=== PATIENT | male | born 1980 | race Caucasian/White ===

== ENCOUNTER 2016-12-19 12:39 | Emergency (ER) | payer OTHER ==
[2016-12-19 12:54] VITALS: BP 147/91; PULSE 71; RESP 20; TEMP 97.7; O2SAT 100
--- NOTE | 2016-12-19 15:06 | EDPHY ---
ED Progress Note Narrative: This patient left the emergency department without being seen. I did not see this patient in the emergency department.
== END 2016-12-19 14:19 | disposition left against medical advice (07) ==
DX: Z53.21 Procedure and treatment not carried out due to patient leaving prior to being seen by health care provider (principal)

== ENCOUNTER 2016-12-23 07:06 | Emergency (ER) | payer OTHER ==
--- NOTE | 2016-12-23 07:28 | CPEKG ---
Heart Rate: 113 RR Interval: 531 P-R Interval: 125 QRSD Interval: 82 QT Interval: 356 QTC Interval: 489 P [place]: 0 QRS [place]: -50 T Wave [place]: 68 EKG Severity - BORDERLINE ECG - EKG Impression: SINUS TACHYCARDIA EKG Impression: LEFT AXIS DEVIATION EKG Impression: BORDERLINE PROLONGED QT INTERVAL Electronically Signed By: Chuckie Jerry 23-Dec-2016 07:54:23
--- NOTE | 2016-12-23 07:28 | CPEKG ---
Heart Rate: 113 RR Interval: 531 P-R Interval: 125 QRSD Interval: 82 QT Interval: 356 QTC Interval: 489 P [place]: 0 QRS [place]: -50 T Wave [place]: 68 EKG Severity - BORDERLINE ECG - EKG Impression: SINUS TACHYCARDIA EKG Impression: LEFT AXIS DEVIATION EKG Impression: BORDERLINE PROLONGED QT INTERVAL Electronically Signed By: Chuckie Jerry 23-Dec-2016 07:54:23
--- NOTE | 2016-12-23 07:53 | EDPHY ---
H & P Stated Complaint: chest pain Time Seen by Provider: 12/23/16 07:09 HPI/ROS: CHIEF COMPLAINT: Chest pain HISTORY OF PRESENT ILLNESS: The patient is referred to the emergency department from assisted with complaints of anterior chest pain. The patient reports his symptoms have been ongoing for several days. He attributes this to stopping Ativan and gabapentin. The patient is currently receiving Librium at the assisted for symptoms of withdrawal. The patient apparently has been having chest pain for the past day assisted. His EKGs have demonstrated sinus tachycardia. He is referred to the ED for further evaluation. In the emergency department, the patient is somewhat vague about a prior history of acute coronary syndrome. There are no records in our computer system of the patient having a myocardial infarction. The patient denies asymmetric calf pain or swelling. He denies pleuritic chest pain. The patient has no complaints of fever, cough or congestion. REVIEW OF SYSTEMS: A comprehensive 10 point review of systems is otherwise negative aside from elements mentioned in the history of present illness. Source: Patient - Personal History Current Tetanus/Diphtheria Vaccine: Yes Current Tetanus Diphtheria and Acellular Pertussis (TDAP): Yes - Medical/Surgical History Hx Asthma: No Hx Chronic Respiratory Disease: No Hx Diabetes: No Hx Cardiac Disease: Yes Hx Renal Disease: No Hx Cirrhosis: No Hx Alcoholism: No Hx HIV/AIDS: No Hx Splenectomy or Spleen Trauma: No Other PMH: PSYCH HX/PARANOIA/ANXIETY, "heart problems", HTN - Social History Smoking Status: Former smoker - Physical Exam Exam: General Appearance: Alert, anxious, no acute distress Eyes: Pupils equal and round no pallor or injection ENT, Mouth: Mucous membranes moist Respiratory: There are no retractions, lungs are clear to auscultation Cardiovascular: Regular rate and rhythm Gastrointestinal: Abdomen is soft and nontender, no masses, bowel sounds normal Neurological: A&O, normal motor function, normal sensory exam, normal cranial nerves Skin: Warm and dry, no rashes Musculoskeletal: Neck is supple nontender Extremities: symmetrical, full range of motion Psychiatric: Patient is oriented X 3, there is no agitation, anxious Constitutional: Initial Vital Signs Temperature (C) 37.2 C 12/23/16 07:10 Heart Rate 115 H 12/23/16 07:10 Respiratory Rate 20 12/23/16 07:10 Blood Pressure 145/100 H 12/23/16 07:10 O2 Sat (%) 98 12/23/16 07:10 O2 Delivery Mode Room Air Allergies/Adverse Reactions: Penicillins Allergy (Unverified 12/23/16 07:28) Home Medications: Medication Instructions Recorded Propranolol HCl 12/19/16 Ativan 12/23/16 Medical Decision Making - Diagnostics EKG Interpretation: EKG: Complete interpretation has been separately recorded in the [email or web address] archive. Summary impression: Sinus tachycardia, rate 113 ED Course/Re-evaluation: The patient presents to the ED with chest pain in the setting of benzodiazepine discontinuation. The patient was noted to have mild hypokalemia which was corrected in the emergency department. The patient did appear slightly dehydrated. He received a L of normal saline. His sodium was initially level however corrected after IV fluid rehydration. The patient was reassessed several times emergency department, his tachycardia has resolved. At 10:20 a.m. , his blood pressure is 140/90 with a heart rate in the 80s. Regarding the patient's chest pain, his EKG is normal, his troponin is within normal limits. I feel his symptoms today are consistent with mild anxiety and mild withdrawal symptoms. The patient is currently receiving Librium at the assisted. The patient will be discharged from the emergency department at this point time. He has no evidence of acute coronary syndrome, myocardial infarction or additional historical features to suggest pulmonary embolism or other serious cause of chest pain. Differential Diagnosis: Differential diagnosis considered includes acute coronary syndrome, anxiety, metabolic abnormality, pulmonary embolism, dehydration - Data Points Laboratory Results: Laboratory Results 12/23/16 07:42 12/23/16 07:42 12/23/16 12/23/16 12/23/16 09:59 07:42 07:42 WBC 10.03 10^3/uL H 10^3/uL (3.80-9.50) RBC 6.16 10^6/uL 10^6/uL (4.40-6.38) Hgb 17.4 g/dL g/dL (13.7-17.5) POC Hgb 17.3 gm/dL gm/dL (13.7-17.5) Hct 45.4 % % (40.0-51.0) POC Hct 51 % % (40-51) MCV 73.7 fL L fL (81.5-99.8) MCH 28.2 pg pg (27.9-34.1) MCHC 38.3 g/dL H g/dL (32.4-36.7) RDW 11.8 % % (11.5-15.2) Plt Count 251 10^3/uL 10^3/uL (150-400) MPV 10.4 fL fL (8.7-11.7) Neut % (Auto) 71.6 % % (39.3-74.2) Lymph % (Auto) 19.1 % % (15.0-45.0) [place] % (Auto) 7.9 % % (4.5-13.0) Eos % (Auto) 0.5 % L % (0.6-7.6) Baso % (Auto) 0.4 % % (0.3-1.7) Nucleat RBC Rel Count 0.0 % % (0.0-0.2) Absolute Neuts (auto) 7.18 10^3/uL H 10^3/uL (1.70-6.50) Absolute Lymphs (auto) 1.92 10^3/uL 10^3/uL (1.00-3.00) Absolute Monos (auto) 0.79 10^3/uL 10^3/uL (0.30-0.80) Absolute Eos (auto) 0.05 10^3/uL 10^3/uL (0.03-0.40) Absolute Basos (auto) 0.04 10^3/uL 10^3/uL (0.02-0.10) Absolute Nucleated RBC 0.00 10^3/uL 10^3/uL (0-0.01) Immature Gran % 0.5 % % (0.0-1.1) Immature Gran # 0.05 10^3/uL 10^3/uL (0.00-0.10) RBC/WBC/PLT Morphology NORMAL (NORMAL) Platelet Estimate ADEQUATE (ADEQ) POC Sodium 134 mEq/L mEq/L (134-144) Sodium 129 mEq/L L mEq/L (134-144) POC Potassium 3.6 mEq/L mEq/L (3.3-5.0) Potassium 3.0 mEq/L L mEq/L (3.5-5.2) POC Chloride 99 mEq/L mEq/L (97-110) Chloride 93 mEq/L L mEq/L (97-110) Carbon Dioxide 17 mEq/l L mEq/l (22-31) Anion Gap 19 mEq/L H mEq/L (8-16) POC BUN 26 mg/dL H mg/dL (7-23) BUN 28 mg/dL H mg/dL (7-23) Creatinine 1.2 mg/dL mg/dL (0.7-1.3) POC Creatinine 1.2 mg/dL mg/dL (0.7-1.3) Estimated GFR > 60 Glucose 139 mg/dL H mg/dL (70-100) POC Glucose 119 mg/dL H mg/dL (70-100) Calcium 9.3 mg/dL mg/dL (8.5-10.4) Troponin I 0.034 ng/mL ng/mL (0.000-0.034) Medications Given: Discontinued Medications Sodium Chloride (Ns) 1,000 mls @ 0 mls/hr IV EDNOW ONE; Wide Open PRN Reason: Protocol Stop: 12/23/16 08:13 Last Admin: 12/23/16 09:08 Dose: 1,000 mls Potassium Chloride (Potassium Cl 10 Meq (Premix)) 100 mls @ 100 mls/hr IV ONCE ONE Stop: 12/23/16 09:12 Last Admin: 12/23/16 09:08 Dose: 100 mls Potassium Chloride (Klor-Con) 40 meq PO ONCE ONE Stop: 12/23/16 08:13 Last Admin: 12/23/16 09:09 Dose: 40 meq Point of Care Test Results: 12/23/16 09:59 POC Sodium 134 POC Potassium 3.6 POC Chloride 99 POC BUN 26 H POC Creatinine 1.2 POC Glucose 119 H Departure - Departure Disposition: Home, Routine, Self-Care Clinical Impression: Chest pain, Anxiety, Dehydration Condition: Good Instructions: Chest Pain (ED), Dehydration (ED) Additional Instructions: 1. Please be sure to have adequate nutritional intake as your potassium level was slightly low. We have corrected that in the emergency department today. 2. Please return to the ED for markedly worsening symptoms or other concerns. We see no evidence of a heart attack or serious condition at this point time. Referrals: NONE *PRIMARY CARE P,. [Primary Care Provider] - As per Instructions
[2016-12-23 08:04] LABS: PLATELET COUNT 251 10^3/uL (150-400)
[2016-12-23] MEDS ORDERED: NS 1,000 ML IV ONE (08:12)
[2016-12-23] MEDS ORDERED: POTASSIUM CL 20 MEQ TAB PO ONE (08:12)
[2016-12-23] MEDS ORDERED: POTASSIUM Cl (KCl) 100 ML IV ONE (08:13)
[2016-12-23 10:17] VITALS: BP 136/94; PULSE 88; RESP 17; TEMP 97.3; O2SAT 94
== END 2016-12-23 10:39 | disposition home or self-care (01) ==
LOC: EDUNIT#
DX: R07.9 Chest pain, unspecified (principal); F41.9 Anxiety disorder, unspecified; E86.0 Dehydration; I10 Essential (primary) hypertension; E86.9 Volume depletion, unspecified; Z87.891 Personal history of nicotine dependence
CPT/HCPCS: 82947-QW; 96365

== ENCOUNTER 2017-07-19 02:12 | Inpatient (IN) | payer OTHER ==
--- NOTE | 2017-07-19 02:23 | EDPHY ---
H & P - Medical/Surgical History Hx Asthma: No Hx Chronic Respiratory Disease: No Hx Diabetes: No Hx Cardiac Disease: Yes Hx Renal Disease: No Hx Cirrhosis: No Hx Alcoholism: No Hx HIV/AIDS: No Hx Splenectomy or Spleen Trauma: No Other PMH: PSYCH HX/PARANOIA/ANXIETY, "heart problems", HTN - Social History Smoking Status: Former smoker Time Seen by Provider: 07/19/17 02:15 HPI/ROS: Chief Complaint: Psychosis, mental health evaluation HPI: 36-year-old male bring brought from the skilled nursing for mental health evaluation. Patient seen by mental health evaluated there and was found to be gravely disabled with a lack of insight, grandiose delusions, with psychotic features. Patient has a history of psychosis and mental illness in the past. He had been taking Seroquel but does not wish to continue taking this. 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 Patient denies suicidal or homicidal ideation. Does not feel he has any a capacities at this time. Patient was placed on a mental health hold in skilled nursing prior to transfer here. ROS: 10 point Review of Systems is negative except as noted in the HPI. PMH: Unspecified psychosis Social History: No smoking, no alcohol Family History: non-contributory Physical Exam: Gen: Awake, Alert, No Distress HEENT: Nose: no rhinorrhea Eyes: PERRLA, EOMI Mouth: Moist mucosa Neck: Supple, no JVD Chest: nontender, lungs clear to auscultation Heart: S1, S2 normal, no murmur Abd: Soft, non-tender, no guarding Back: no CVA tenderness, no midline tenderness Ext: no edema, non-tender Skin: no rash Neuro: CN II-XII intact, Sensation grossly intact, Strength 5/5 in bilateral upper and lower extremities (Faustino Juarez) Constitutional: Initial Vital Signs Temperature (C) 36.4 C 07/19/17 02:33 Heart Rate 124 H 07/19/17 02:33 Respiratory Rate 18 07/19/17 02:33 Blood Pressure 151/103 H 07/19/17 02:33 O2 Sat (%) 100 07/19/17 02:33 O2 Delivery Mode Room Air Allergies/Adverse Reactions: Penicillins Allergy (Verified 07/19/17 02:34) Home Medications: Medication Instructions Recorded Propranolol HCl 12/19/16 Ativan 12/23/16 Medical Decision Making ED Course/Re-evaluation: 36-year-old male on a mental health hold for psychosis from the skilled nursing. He has been released from the skilled nursing at this time. He is awaiting mental health evaluation. [id number] patient signed out to Dr. Valdez Pending mental health evaluation. I have had no issues during my care this patient overnight. (Faustino Juarez) Patient's care was signed out to me at 7:00 a.m. . Patient has remained stable Patient has had a mental health evaluation this morning and they feel that the patient should be admitted for further treatment. (Andrew Valdez) Differential Diagnosis: Appears the patient has psychosis (Andrew Valdez) - Data Points Laboratory Results: Laboratory Results 07/19/17 02:55 07/19/17 02:55 07/19/17 07/19/17 07/19/17 04:00 02:55 02:55 WBC 6.83 10^3/uL 10^3/uL (3.80-9.50) RBC 5.30 10^6/uL 10^6/uL (4.40-6.38) Hgb 15.4 g/dL g/dL (13.7-17.5) Hct 44.3 % % (40.0-51.0) MCV 83.6 fL fL (81.5-99.8) MCH 29.1 pg pg (27.9-34.1) MCHC 34.8 g/dL g/dL (32.4-36.7) RDW 11.8 % % (11.5-15.2) Plt Count 246 10^3/uL 10^3/uL (150-400) MPV 9.7 fL fL (8.7-11.7) Neut % (Auto) 59.5 % % (39.3-74.2) Lymph % (Auto) 31.6 % % (15.0-45.0) [place] % (Auto) 5.9 % % (4.5-13.0) Eos % (Auto) 2.2 % % (0.6-7.6) Baso % (Auto) 0.7 % % (0.3-1.7) Nucleat RBC Rel Count 0.0 % % (0.0-0.2) Absolute Neuts (auto) 4.06 10^3/uL 10^3/uL (1.70-6.50) Absolute Lymphs (auto) 2.16 10^3/uL 10^3/uL (1.00-3.00) Absolute Monos (auto) 0.40 10^3/uL 10^3/uL (0.30-0.80) Absolute Eos (auto) 0.15 10^3/uL 10^3/uL (0.03-0.40) Absolute Basos (auto) 0.05 10^3/uL 10^3/uL (0.02-0.10) Absolute Nucleated RBC 0.00 10^3/uL 10^3/uL (0-0.01) Immature Gran % 0.1 % % (0.0-1.1) Immature Gran # 0.01 10^3/uL 10^3/uL (0.00-0.10) Sodium 145 mEq/L mEq/L (135-145) Potassium 3.7 mEq/L mEq/L (3.3-5.0) Chloride 107 mEq/L mEq/L (97-110) Carbon Dioxide 23 mEq/l mEq/l (22-31) Anion Gap 15 mEq/L mEq/L (8-16) BUN 17 mg/dL mg/dL (7-23) Creatinine 1.1 mg/dL mg/dL (0.7-1.3) Estimated GFR > 60 Glucose 138 mg/dL H mg/dL (70-100) Calcium 9.7 mg/dL mg/dL (8.5-10.4) Urine Opiates Screen NEGATIVE (NEGATIVE) Urine Barbiturates NEGATIVE (NEGATIVE) Ur Phencyclidine Scrn NEGATIVE (NEGATIVE) Ur Amphetamine Screen NEGATIVE (NEGATIVE) U Benzodiazepines Scrn NEGATIVE (NEGATIVE) Urine Cocaine Screen NEGATIVE (NEGATIVE) U Marijuana (THC) Screen NEGATIVE (NEGATIVE) Ethyl Alcohol < 10 mg/dL mg/dL (0-10) Departure - Departure Disposition: [facility] IP Clinical Impression: Acute psychosis Condition: Fair Referrals: NONE *PRIMARY CARE P,. [Primary Care Provider] - As per Instructions
[2017-07-19 03:11] LABS: PLATELET COUNT 246 10^3/uL (150-400)
[2017-07-19] MEDS ORDERED: OLANZapine DISINTEGR 10 MG TAB PO PRN (13:38)
[2017-07-19] MEDS ORDERED: QUEtiapine FUMARATE 100 MG TAB PO PRN (14:17)
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
--- NOTE | 2017-07-19 16:35 | CPEKG ---
Heart Rate: 73 RR Interval: 822 P-R Interval: 168 QRSD Interval: 82 QT Interval: 396 QTC Interval: 437 P [place]: 74 QRS [place]: -8 T Wave [place]: 64 EKG Severity - NORMAL ECG - EKG Impression: SINUS RHYTHM Electronically Signed By: Tomás Zimmerman 21-Jul-2017 07:02:26
[2017-07-19] MEDS: PROPRANOLOL HCL 10 MG TAB PO SCH (19:43)
[2017-07-19] MEDS: QUEtiapine FUMARATE 200 MG TAB PO SCH (19:43)
[2017-07-19] MEDS ORDERED: QUEtiapine FUMARATE 300 MG TAB PO SCH (21:00)
[2017-07-20] MEDS: QUEtiapine FUMARATE 200 MG TAB PO SCH ×2 (08:24→18:31)
[2017-07-20] MEDS: PROPRANOLOL HCL 10 MG TAB PO SCH ×2 (08:24→18:30)
--- NOTE | 2017-07-20 08:43 | SOAPPROG ---
SOAP Progress Note Assessment/Plan: Assessment: Bipolar Disorder type I manic severe with psychotic features Rule Out Schizoaffective Disorder bipolar type History of sinus tachycardia and hypertension History of cannabis and hallucinogen use disorders Homeless Patient admitted on M-1 for grave disability after discharge from [facility]. Patient during admit 07/20/17 was hyperverbal and tangential with grandiose delusions and walking around unit without a shirt. Patient was compliant with Seroquel last night, slept well overnight, this morning is non-verbal and walks away from interview, but ate full breakfast this AM. Plan: Patient refuses to discuss voluntary treatment, diagnosis, risks/benefits of medication Short Term Certification for grave disability 07/20/17 Patient refuses to sign TREY for family (brother in [place], parents in [facility], ex-GFs parents in [place] caring for patients children) Continue Seroquel 200mg QAM and 400mg QHS per [facility] Continue Propranolol 10mg BID Monitor for catatonia Ativan 1mg [id number] PRN anxiety or agitation Monitor PO intake, behavior, impulse control, thought/behavior organization, ability to care for self Safety precautions. Vitals BID. 07/20/17 08:50 Subjective: CC: patient refuses to speak to M.D. Patient initially sleeping at 8AM. Refused to speak to M.D. when awoken, pulled blanket over head. Patient later came out of room and ate full breakfast. Afterward, approached by Mel. patient waved hand, then went back to bed and pulled blanket over head. Patient wrote letter to nurse this AM reporting 'today is a day of quietude.' Patient refuses or unable to explain his thought content, mood, and thoughts regarding treatment in the hospital. Staff report yesterday PM patient made grandiose statements about the [facility] dismissing his past legal problems and being part of a 'special alpha force' team. Patient slept 9 hours overnight, ate full breakfast this AM. Objective: Vital Signs Temp Pulse Resp BP Pulse Ox 36.6 C 79 16 120/77 97 07/20/17 06:00 07/20/17 06:00 07/20/17 06:00 07/20/17 06:00 07/20/17 06:00 Patient initially sleeping at 8AM. Refused to speak to M.D. when awoken, pulled blanket over head. Patient later came out of room and ate full breakfast. Afterward, approached by Mel. patient waved hand, then went back to bed and pulled blanket over head. Patient wrote letter to nurse this AM reporting 'today is a day of quietude.' Alert WM, disheveled with poor hygiene. Ambulatory without weakness or tremors. Not speaking to M.D. Unable to assess mood, thought content, insight , or judgment. Patient refuses or unable to explain his thought content, mood, and thoughts regarding treatment in the hospital. Staff report yesterday PM patient made grandiose statements about the [facility] dismissing his past legal problems and being part of a 'special alpha force' team. Patient didn't attend any groups yesterday and isolated to room. Patient slept 9 hours overnight, ate full breakfast this AM. LABS: EKG NSR with QTc 437msec (WNL) AST 18, ALT 25, Lipids WNL, TSH 0.77, A1c 5.1 - Time Spent With Patient Time Spent With Patient: 10 minutes - Pending Discharge Pending Discharge Within 24 Hours: No Pending Discharge Within 48 Hours: No ICD10 Worksheet Patient Problems: Problems Problem Status Onset Acute psychosis Acute Bipolar affective, manic, severe w/ psych Acute Sinus tachycardia Acute
[2017-07-20] MEDS ORDERED: QUEtiapine FUMARATE 100 MG TAB ONE (12:38)
[2017-07-20] MEDS: QUEtiapine FUMARATE 100 MG TAB PO PRN (12:40)
--- NOTE | 2017-07-20 17:20 | BCON ---
[f rep st] BEHAVIORAL HEALTH CONSULTATION INTERNAL MEDICINE CONSULTATION DATE OF CONSULTATION: 07/20/2017 REFERRING PHYSICIAN: LATOYA BARKER MD REASON FOR REFERRAL: Medical clearance for inpatient behavioral health stay. HISTORY OF PRESENT ILLNESS: This patient was admitted via the emergency department from the shelter. He had been placed on an M1 hold at the shelter because he was noted to be gravely psychiatrically disabled. He is currently without any acute medical complaints, though he mentions an abrasion on his right pendleton and a cyst in his right earlobe and requests triple antibiotic ointment for both. He is perseverative regarding requesting a different psychiatrist besides Dr. Barker, and requesting Valium rather than lorazepam as a sedative. PAST MEDICAL HISTORY: 1. Mental health issues with diagnoses of bipolar disorder and possible schizoaffective disorder. 2. Hypertension. PAST SURGICAL HISTORY: He has not had any surgeries. MEDICATIONS: He was taking quetiapine. 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 He was recently incarcerated. He quit smoking about 2 years ago. He denies use of alcohol. FAMILY HISTORY: Noncontributory. REVIEW OF SYSTEMS: Other than a cyst in his right earlobe and abrasion on his right pendleton, a 10-point review of systems was negative. PHYSICAL EXAM: VITAL SIGNS: Blood pressure is 120/77. Heart rate is 79. Respiratory rate is 16. Oxygen saturation is 97% on room air. Temperature is 36.6 degrees centigrade. His weight is 68 kg, for a body mass index of 18.7. GENERAL: This is a well-nourished, well-developed man lying in bed, sits up and is overall cooperative with exam, though perseverative. HEENT: Extraocular movements are intact. Pupils are equal, round, and reactive to light. Mucous membranes are moist. Dentition is in good condition. NECK: Supple. HEART: Regular rate and rhythm, with no murmurs, rubs, or gallops. LUNGS: Clear to auscultation bilaterally. ABDOMEN: Benign. EXTREMITIES: There is no cyanosis , clubbing, or edema. NEUROLOGIC: He is alert and oriented x3. Cranial nerves 2-12 are grossly intact. There is no focal weakness, and sensation is intact to light touch. LABORATORY STUDIES: From the emergency department, CBC was completely within normal limits. Basic metabolic profile revealed normal renal function and electrolytes. He had a slightly elevated glucose at 138, but a hemoglobin A1c was normal at 5.1. Liver functions were normal. Cholesterol panel was benign. TSH was normal at 0.778. Toxicology screen in the serum was negative for ethyl alcohol, and the urine was negative for any substances of abuse. ASSESSMENT/RECOMMENDATIONS: 1. Mental health issues pending further evaluation per Psychiatry and the mental health team. 2. Hypertension, appears to be adequately controlled on propranolol. 3. Abrasion to the right pendleton. I will order triple antibiotic ointment per his request, though he was reassured that it would heal well with no treatment. 4. Cyst in the right earlobe, unclear etiology. It would not be appropriate to apply triple antibiotic to his earlobe. I see no medical contraindications to this patient's continued stay in the inpatient behavioral health unit or to any psychiatric medications or procedures. Thank you very much for including me in the care of this patient and please do not hesitate to contact me or the hospitalist service should there be need for further medical evaluation. /[id number]/MODL MTDD
[2017-07-20] MEDS: LORazepam 0.5 MG TAB PO PRN (18:44)
[2017-07-21] MEDS: LORazepam 0.5 MG TAB PO PRN (01:46)
[2017-07-21] MEDS: QUEtiapine FUMARATE 200 MG TAB PO SCH ×2 (08:02→21:00)
[2017-07-21] MEDS: PROPRANOLOL HCL 10 MG TAB PO SCH ×4 (08:02→21:18)
[2017-07-21] MEDS: QUEtiapine FUMARATE 100 MG TAB PO PRN (08:05)
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
[2017-07-22] MEDS: QUEtiapine FUMARATE 100 MG TAB PO PRN ×3 (02:49→14:10)
[2017-07-22] MEDS: PROPRANOLOL HCL 10 MG TAB PO SCH ×3 (08:08→15:59)
[2017-07-22] MEDS: QUEtiapine FUMARATE 200 MG TAB PO SCH ×3 (08:08→21:34)
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
[2017-07-22] MEDS: ACETAMINOPHEN 325 MG TAB PO PRN (17:49)
[2017-07-23] MEDS: ACETAMINOPHEN 325 MG TAB PO PRN ×3 (03:00→19:13)
[2017-07-23] MEDS: QUEtiapine FUMARATE 100 MG TAB PO PRN ×4 (03:01→21:46)
[2017-07-23] MEDS: QUEtiapine FUMARATE 200 MG TAB PO SCH ×2 (08:27→19:13)
[2017-07-23] MEDS: PROPRANOLOL HCL 10 MG TAB PO SCH ×2 (08:27→19:14)
--- NOTE | 2017-07-23 13:32 | SOAPPROG ---
SOAP Progress Note Assessment/Plan: Assessment: Bipolar I disorder, with harry and psychosis. Slight improvement noted. (see subjective/objective note). Continues to show signs of harry and psychosis. Patient could benefit from continued inpatient hospitalization for crisis stabilization, safety, and medication evaluation. Plan: Review psychotropic medication treatment informed consent and recommendations. After reviewing risk and benefits, patient agrees to continue medications with the following changes. Medication changes include increase Seroquel scheduled AM dose to 400 mg. No other medication changes at this time as more time is needed to determine ongoing tolerability and efficacy. Plan is to continue to observe patient for response and side effects from medications, and ongoing monitoring and evaluation. Next steps are for patient to meet with healthcare translator to plan a safe discharge plan and establish outpatient services for ongoing treatment. Consider discharge on /Sunday if patient is in stable condition, safe, and has a safe discharge plan. PSYCHOTROPIC MEDICATION TREATMENT INFORMED CONSENT and RECOMMENDATIONS: Review nature of condition, diagnosis, and prognosis. Review nature and purpose of psychotropic medication treatment. Review type of psychotropic medications being ordered. Review risk and benefits of psychotropic medication treatment. Review probable length of time patient will need to take medications. Review risk and benefits of not undergoing psychotropic medication treatment. Review alternative treatments to psychotropic medications. Review psychotropic medications contraindications, drug-drug interactions, side effects, and importance of reporting any side effects to a psychiatric provider or nurse during inpatient hospitalization, and upon discharge to patients psychiatric outpatient provider, primary care provider, or other health laboratory animal caretaker. Review importance of asking a nurse, psychiatric provider, or primary care provider any questions or problems concerning the psychotropic medications. Verify patient understands the information that has been provided, and understands, accepts, and agrees to psychotropic medications. Review patients safety plan and importance of patient to report to staff while hospitalized if patient is ever a danger to self/others, or unable to care for self, and upon discharge, the importance for patient to contact [facility] or [facility], or go to the nearest emergency room, if patient is ever a danger to self/others, or unable to care for self. Recommend that upon discharge patient establish medication management treatment with a psychiatric provider, establishes routine therapy appointments, and follow-up with primary care provider. Verify patient understands and agrees to these recommendations. 07/23/17 13:32 Subjective: Following up with patient for evaluation of harry, psychosis, and safety. CC: "Doing great ready to roll out of here." Patient denies symptoms of harry, reports he is sleeping well, 8 hours, denies A/V hallucinations, delusions, states medications are doing okay for symptoms, and requests increase in schedule Seroquel. Patient reports his appetite is good, eating all meals, states his mood as euthymic, (okay), reports he is tolerating medications with no report of side effects, is engaging in some of the groups, and denies SI/HI. Patient reports he is in stable condition an no longer requires hospitalization. Objective: Vital Signs Temp Pulse Resp BP Pulse Ox 36.3 C 95 12 164/83 H 96 07/23/17 06:00 07/23/17 08:27 07/23/17 08:15 07/23/17 08:27 07/23/17 08:15 Consulted with treatment team staff for update on patients progress in treatment. Nurses report patient has been isolating to his room for most of the time, was in room earlier today singing and babbling while staring out the window, he is taking medications as prescribed with no report of side effects, no reports of SI, no A/V hallucinations reported. Patient refused to meet with his patient care provider today, and patient care provider states when she attempted to ask him questions, he would sing answers back to her that were irrelevant. Symptoms during interview: pressured speech--interrupted this interviewer several times, poor insight and judgment. Patient is showing some improvement with current medications, notably improved sleep. Patient shows slight treatment response as of today. Patient continues to exhibit symptoms of harry, bizarre behavior (babbling, singing to self in room while staring ot the window). Symptoms continue at about the same in frequency and intensity with only slight improvement. He is currently tolerating current medications with no reports of side effects, and with fair response. Attire is appropriate dress is casual. Grooming status is disheveled. Ambulation is independent and gait is normal and coordinated. Posture is normal and relaxed. Eye contact is inappropriate and excessive. Motor activity is overactive with no involuntary movements. Attitude is cooperative, guarded, and at times indifferent. Patient is attentive and relates well to this interviewer. Language production is unspontaneous, rate is pressured, and latency of response is shortened, with irritable tone, high volume, and hypertalkive in amount. Articulation is clear, with no speech impairments noted. Patient reports mood as euphoric with expansive affect. Patients thought process is illogical, tangential thought, and irrelevant at times. Associations are loose. The flow is pressured. Patient does not report suicidal/homicidal thoughts, ideas, or plans. Patient denies auditory, visual hallucinations. Patient denies delusions. Patient does not appear to be attending to internal stimuli. ORIENTATION: is full to person, full to place, partial to time, and absent to situation. ATTENTION/CONCENTRATION: are poor. INSIGHT: is poor. JUDGMENT: is poor. COGNITIVE: no evidence of gross cognitive dysfunction at any point during the interview; no evidence of apparent dysfunction in recent or remote memory noted. - Time Spent With Patient Time Spent With Patient: 30 minutes, met with patient individually. - Pending Discharge Pending Discharge Within 24 Hours: No Pending Discharge Within 48 Hours: No ICD10 Worksheet Patient Problems: Problems Problem Status Onset Sinus tachycardia Acute Bipolar affective, manic, severe w/ psych Acute Acute psychosis Acute
[2017-07-23] MEDS: DIAZEPAM 5 MG TAB PO PRN ×2 (15:54→21:46)
[2017-07-24] MEDS: QUEtiapine FUMARATE 100 MG TAB PO PRN ×2 (06:04→15:41)
[2017-07-24] MEDS: ACETAMINOPHEN 325 MG TAB PO PRN ×2 (08:16→14:04)
[2017-07-24] MEDS: PROPRANOLOL HCL 10 MG TAB PO SCH ×2 (08:16→20:02)
[2017-07-24] MEDS: QUEtiapine FUMARATE 200 MG TAB PO SCH ×2 (08:19→20:02)
[2017-07-24] MEDS: DIAZEPAM 5 MG TAB PO PRN ×2 (08:21→16:53)
--- NOTE | 2017-07-24 11:44 | SOAPPROG ---
SOAP Progress Note Assessment/Plan: Assessment: Bipolar I disorder, with harry and psychosis. Slight improvement noted. (see subjective/objective note). Continues to show signs of harry and psychosis. Patient could benefit from continued inpatient hospitalization for crisis stabilization, safety, and medication evaluation. Patient is responding better to higher doses of Seroquel; less intrusive and agitated with addition of Valium PRN. Plan: Review psychotropic medication treatment informed consent and recommendations. After reviewing risk and benefits, patient agrees to continue medications. No medication changes at this time as more time is needed to determine ongoing tolerability and efficacy. Plan is to continue to observe patient for response and side effects from medications, and ongoing monitoring and evaluation. Next steps are for patient to meet with laboratory animal care veterinarian to plan a safe discharge plan and establish outpatient services for ongoing treatment. Consider discharge on /Sunday if patient is in stable condition, safe, and has a safe discharge plan. PSYCHOTROPIC MEDICATION TREATMENT INFORMED CONSENT and RECOMMENDATIONS: Review nature of condition, diagnosis, and prognosis. Review nature and purpose of psychotropic medication treatment. Review type of psychotropic medications being ordered. Review risk and benefits of psychotropic medication treatment. Review probable length of time patient will need to take medications. Review risk and benefits of not undergoing psychotropic medication treatment. Review alternative treatments to psychotropic medications. Review psychotropic medications contraindications, drug-drug interactions, side effects, and importance of reporting any side effects to a psychiatric provider or nurse during inpatient hospitalization, and upon discharge to patients psychiatric outpatient provider, primary care provider, or other health manager care management. Review importance of asking a nurse, psychiatric provider, or primary care provider any questions or problems concerning the psychotropic medications. Verify patient understands the information that has been provided, and understands, accepts, and agrees to psychotropic medications. Review patients safety plan and importance of patient to report to staff while hospitalized if patient is ever a danger to self/others, or unable to care for self, and upon discharge, the importance for patient to contact [facility] or [facility], or go to the nearest emergency room, if patient is ever a danger to self/others, or unable to care for self. Recommend that upon discharge patient establish medication management treatment with a psychiatric provider, establishes routine therapy appointments, and follow-up with primary care provider. Verify patient understands and agrees to these recommendations. 07/24/17 11:54 Subjective: Following up with patient for evaluation of harry, psychosis, and safety. CC: Doing great again today...a little drowsy from the medications, am sleeping better though. Patient denies symptoms of harry, reports he is sleeping well, 8 hours, denies A/V hallucinations, delusions, states he is responding well to the medications and agrees to continue current medications. Patient reports his appetite is good, eating all meals, states his mood as euthymic, (okay), reports he is tolerating medications with no report of side effects, is engaging in some of the groups, and denies SI/HI. Objective: Vital Signs Temp Pulse Resp BP Pulse Ox 36.3 C 96 16 108/71 97 07/23/17 06:00 07/24/17 08:16 07/24/17 08:15 07/24/17 08:16 07/24/17 08:15 Consulted with treatment team staff for update on patients progress in treatment. Nurses report patient continues to isolate to his room for most of the time; nurses report she shows some signs of improvement today (e.g., not as disorganized and no bizarre behavior today compared to yesterday when he was in his room signing inappropriately); he is taking medications as prescribed with no report of side effects, no reports of SI, no A/V hallucinations reported. Nurses reports he needs more time to clear (mentation). Symptoms noted during interview: less pressured speech todayallowed this interviewer to finish a sentence without interrupting; insight and judgement still impaired. Patient is showing some improvement with increase in medication dosage, notably improved sleep. Patient shows slight treatment response as of today. Patient continues to present disorganized and tangential Symptoms continue with less frequency and intensity with improvement. He is currently tolerating current medications with no reports of side effects, and with fair response. Attire is appropriate dress is casual. Grooming status is disheveled. Ambulation is independent and gait is normal and coordinated. Posture is normal and relaxed. Eye contact is inappropriate and excessive. Motor activity is appropriate with no involuntary movements. Attitude is cooperative. Patient is attentive and relates well to this interviewer. Language production is spontaneous, rate is pressured, and latency of response is shortened, with irritable tone, high volume, and hypertalkive in amount. Articulation is clear, with no speech impairments noted. Patient reports mood as euphoric with expansive affect. Patients thought process is illogical, tangential thought, and irrelevant at times. Associations are loose. The flow is pressured. Patient does not report suicidal/homicidal thoughts, ideas, or plans. Patient denies auditory, visual hallucinations. Patient denies delusions. Patient does not appear to be attending to internal stimuli. ORIENTATION: is full to person, full to place, partial to time, and absent to situation. ATTENTION/CONCENTRATION: are poor. INSIGHT: is poor. JUDGMENT: is poor. COGNITIVE: no evidence of gross cognitive dysfunction at any point during the interview; no evidence of apparent dysfunction in recent or remote memory noted. - Time Spent With Patient Time Spent With Patient: 20 minutes, met with patient individually. - Pending Discharge Pending Discharge Within 24 Hours: No Pending Discharge Within 48 Hours: No ICD10 Worksheet Patient Problems: Problems Problem Status Onset Acute psychosis Acute Bipolar affective, manic, severe w/ psych Acute Sinus tachycardia Acute
[2017-07-24] MEDS ORDERED: IBUPROFEN 600 MG TAB PO PRN (15:46)
[2017-07-24] MEDS: MAG HYDROX/AL HYDROX/SIMETH 30 ML UDCUP PO PRN (16:37)
[2017-07-24] MEDS: MAGNESIUM HYDROXIDE 30 ML UDCUP PO PRN (16:49)
[2017-07-24] MEDS: IBUPROFEN 200 MG TAB PO PRN (19:25)
[2017-07-25] MEDS: IBUPROFEN 200 MG TAB PO PRN (07:37)
[2017-07-25] MEDS: QUEtiapine FUMARATE 200 MG TAB PO SCH ×2 (07:38→21:13)
[2017-07-25] MEDS: PROPRANOLOL HCL 10 MG TAB PO SCH ×2 (07:38→21:13)
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
[2017-07-25] MEDS: DIAZEPAM 5 MG TAB PO PRN (10:40)
[2017-07-25] MEDS: QUEtiapine FUMARATE 100 MG TAB PO PRN ×3 (11:25→16:26)
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
[2017-07-25] MEDS: LIDOCAINE 4%/MENTHOL 1% PATCH TD SCH (21:44)
[2017-07-25] MEDS: PATCH REMOVAL 1 EA PATCH TD SCH (22:22)
[2017-07-25] MEDS: MAG HYDROX/AL HYDROX/SIMETH 30 ML UDCUP PO PRN (22:48)
[2017-07-26] MEDS: IBUPROFEN 200 MG TAB PO PRN ×2 (02:53→13:18)
[2017-07-26] MEDS: DIAZEPAM 5 MG TAB PO PRN ×3 (02:53→22:08)
[2017-07-26] MEDS: QUEtiapine FUMARATE 100 MG TAB PO PRN ×3 (02:56→16:53)
[2017-07-26] MEDS: LIDOCAINE 4%/MENTHOL 1% PATCH TD SCH (06:36)
[2017-07-26] MEDS: QUEtiapine FUMARATE 200 MG TAB PO SCH ×3 (08:57→22:04)
[2017-07-26] MEDS: PROPRANOLOL HCL 10 MG TAB PO SCH ×3 (08:58→22:04)
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
[2017-07-26] MEDS: DIVALPROEX NA 500 MG TAB PO SCH ×3 (11:06→22:04)
[2017-07-26] MEDS: PATCH REMOVAL 1 EA PATCH TD SCH (21:03)
[2017-07-26] MEDS: MAG HYDROX/AL HYDROX/SIMETH 30 ML UDCUP PO PRN (23:51)
[2017-07-27] MEDS: QUEtiapine FUMARATE 100 MG TAB PO PRN ×2 (00:09→14:06)
[2017-07-27] MEDS: PROPRANOLOL HCL 10 MG TAB PO SCH ×2 (08:16→18:05)
[2017-07-27] MEDS: QUEtiapine FUMARATE 200 MG TAB PO SCH ×2 (08:16→18:06)
[2017-07-27] MEDS: DIVALPROEX NA 500 MG TAB PO SCH (08:27)
--- NOTE | 2017-07-27 10:24 | SOAPPROG ---
SOAP Progress Note Assessment/Plan: Assessment: Bipolar I disorder, with harry and psychosis. No improvement from yesterday ( see subjective/objective note). Continues to present with signs of harry and psychosis. Patient could benefit from continued inpatient hospitalization for crisis stabilization, safety, and medication evaluation. Plan: Review psychotropic medication treatment informed consent and recommendations. Depakote DC's as patient refused. After reviewing risk and benefits, patient agrees to increase Seroquel HS dose to 600 mg and change Seroquel 100 mg PRN to once daily. Depakote level ordered for 06/30/17 prior to AM dose canceled. No other medication changes at this time as more time is needed to determine ongoing tolerability and efficacy. Plan is to continue to observe patient for response and side effects from medications, and ongoing monitoring and evaluation. Next steps are for patient to meet with rn complex care to plan a safe discharge plan and establish outpatient services for ongoing treatment. Consider discharge early next week if patient is in stable condition, safe, and has a safe discharge plan. PSYCHOTROPIC MEDICATION TREATMENT INFORMED CONSENT and RECOMMENDATIONS: Review nature of condition, diagnosis, and prognosis. Review nature and purpose of psychotropic medication treatment. Review type of psychotropic medications being ordered. Review risk and benefits of psychotropic medication treatment. Review probable length of time patient will need to take medications. Review risk and benefits of not undergoing psychotropic medication treatment. Review alternative treatments to psychotropic medications. Review psychotropic medications contraindications, drug-drug interactions, side effects, and importance of reporting any side effects to a psychiatric provider or nurse during inpatient hospitalization, and upon discharge to patients psychiatric outpatient provider, primary care provider, or other health emergency care tech. Review importance of asking a nurse, psychiatric provider, or primary care provider any questions or problems concerning the psychotropic medications. Verify patient understands the information that has been provided, and understands, accepts, and agrees to psychotropic medications. Review patients safety plan and importance of patient to report to staff while hospitalized if patient is ever a danger to self/others, or unable to care for self, and upon discharge, the importance for patient to contact [facility] or [facility], or go to the nearest emergency room, if patient is ever a danger to self/others, or unable to care for self. Recommend that upon discharge patient establish medication management treatment with a psychiatric provider, establishes routine therapy appointments, and follow-up with primary care provider. Verify patient understands and agrees to these recommendations. 07/27/17 10:24 Subjective: Following up with patient for evaluation of harry, psychosis, and safety. CC: I took Seroquel this morning, but did not take Depakote...Im not taking Depakote , Im not about that bullshit because I am not suffering from any condition. Patient denies symptoms of harry, reports he is sleeping well, 8 hours, denies A /V hallucinations, delusions, states he is responding well to the medications and requests to stop Depakote and continue other medications. Patient reports his appetite is good, eating all meals, states his mood as euphoric, (great), reports he is tolerating medications with no report of side effects, is engaging in some of the groups, and denies SI/HI. Patient agrees to attend art group today. Patient states he is not suffering from any condition, rather he is suffering from some bullshit circumstances. Patient reports he does not need Depakote and does not want to take it due to irritable bowel SEs it may cause. Patient agrees to increase Seroquel HS dose and reduce Seroquel PRN to once daily. 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 Patient reports he is understating his talent and skills, and this is all a bigger deal than he is making it out to be. 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 Patient reports he also works with [employer]. 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 Objective: Vital Signs Temp Pulse Resp BP Pulse Ox 36.6 C 92 14 117/72 95 07/27/17 01:06 07/27/17 08:16 07/27/17 01:06 07/27/17 08:16 07/27/17 01:06 Consulted with treatment team staff for update on patients progress in treatment. Nurses report patient continues to isolate to his room and only comes out for meals and to request PRN medications. Nurses reports patient slept 5 hours last night. He is taking medications as prescribed with no report of side effects, no reports of SI, no A/V hallucinations reported. Nurses report he is grandiose, tangential, and nonsensical answers to questions regarding his treatment. They report he continues to show no insight into his current condition. Symptoms noted during interview: neologism, grandiosity, hypertalkative, inability to test reality; tangential, irrelevant and illogical. Patient shows no improvement from yesterdays evaluation. Patient does show some signs of treatment responsenotably sleep. Patient continues to present disorganized and tangential. Patient refuses to continue Depakote and agrees to increase Seroquel HS dose to 600 mg and change Seroquel 100 mg PRN to once daily. Attire is appropriate dress is casual. Grooming status is disheveled. Ambulation is independent and gait is normal and coordinated. Posture is normal and relaxed. Eye contact is inappropriate and excessive. Motor activity is appropriate with no involuntary movements. Attitude is cooperative. Patient is attentive and relates well to this interviewer. Language production is spontaneous, rate is pressured, and latency of response is shortened, with appropriate tone, high volume, and hypertalkive in amount. Articulation is clear, with no speech impairments noted. Patient reports mood as euphoric with expansive affect. Patients thought process is illogical, tangential thought, neologism, and irrelevant at times. Associations are loose. The flow is pressured. Patient does not report suicidal/homicidal thoughts, ideas, or plans. Patient denies auditory, visual hallucinations. Patient denies delusions. Patient does not appear to be attending to internal stimuli. ORIENTATION: is full to person, full to place, partial to time, and absent to situation. ATTENTION/CONCENTRATION: are poor. INSIGHT: is poor. JUDGMENT: is poor. COGNITIVE: no evidence of gross cognitive dysfunction at any point during the interview; no evidence of apparent dysfunction in recent or remote memory noted. - Time Spent With Patient Time Spent With Patient: 30 minutes, met with patient individually. - Pending Discharge Pending Discharge Within 24 Hours: No Pending Discharge Within 48 Hours: No ICD10 Worksheet Patient Problems: Problems Problem Status Onset Acute psychosis Acute Bipolar affective, manic, severe w/ psych Acute Sinus tachycardia Acute
[2017-07-27] MEDS: LIDOCAINE 4%/MENTHOL 1% PATCH TD SCH (11:26)
[2017-07-27] MEDS: DIAZEPAM 5 MG TAB PO PRN (15:23)
[2017-07-27] MEDS: PATCH REMOVAL 1 EA PATCH TD SCH (18:12)
[2017-07-28] MEDS: QUEtiapine FUMARATE 100 MG TAB PO PRN (03:15)
[2017-07-28] MEDS: DIAZEPAM 5 MG TAB PO PRN ×3 (03:16→21:11)
[2017-07-28] MEDS: LIDOCAINE 4%/MENTHOL 1% PATCH TD SCH (07:41)
[2017-07-28] MEDS: PROPRANOLOL HCL 10 MG TAB PO SCH ×2 (08:12→18:25)
[2017-07-28] MEDS: QUEtiapine FUMARATE 200 MG TAB PO SCH ×2 (08:12→18:26)
--- NOTE | 2017-07-28 13:55 | SOAPPROG ---
SOAP Progress Note Assessment/Plan: Assessment: Per Aiden Kwon's note: Assessment: Bipolar I disorder, with harry and psychosis. No improvement from yesterday ( see subjective/objective note). Continues to present with signs of harry and psychosis. Patient could benefit from continued inpatient hospitalization for crisis stabilization, safety, and medication evaluation. Plan: 07/28/17 13:47 1. Patient very disorganized, has no insight into nature and severity of mental health issues. Says he has "no mental problems" and states he only takes Seroquel for "sleep." Denies he would benefit from mood stabilizer. 2. Requests higher dose of lidocaine patch and wants to "taper" off Seroquel after giving informed consent to increase the dose yesterday. 3. On [facility] Subjective: Met with patient, reviewed chart and d/w staff. Patient lying in bed most of the morning, except when he got up to eat meals. He slept 7 hrs last night and ate 100% of breakfast and lunch. When MD and RN entered room, patient got out of bed and made his bed, before sitting on it to talk to MD. He said he "doesn' t need" to be taking any meds. He also c/o sedation from Seroquel and said he'd like to be on lower dose. MD explained his dose was recently increased b/c he agreed with plan to titrate up to max dose of 1,200 md daily. He says he only take med "for sleep" and denied he had any kind of mental health problem. He requested higher dose of lidocaine patch and 30mg of Propranolol instead of 20mg. MD explained that the hospitalist was treating patient for chronic pain, and that there was no indication for higher dose of Propranolol, which patient insists is for his BP (even though BP is stable). Patient denies any SI/HI. Objective: Vital Signs Temp Pulse Resp BP Pulse Ox 36.6 C 99 16 117/75 95 07/27/17 20:00 07/27/17 20:00 07/27/17 20:00 07/27/17 20:00 07/27/17 20:00 MSE: Affect: Euthymic Mood: "OK" TP: Disorganized, illogical TC: Denies SI/HI , no hallucinations, still grandiose and delusional Insight/Judgment: Impaired - Time Spent With Patient Time Spent With Patient: 20" - Pending Discharge Pending Discharge Within 24 Hours: No Pending Discharge Within 48 Hours: No ICD10 Worksheet Patient Problems: Problems Problem Status Onset Acute psychosis Acute Bipolar affective, manic, severe w/ psych Acute Sinus tachycardia Acute
[2017-07-28] MEDS: IBUPROFEN 200 MG TAB PO PRN (18:25)
[2017-07-28] MEDS: PATCH REMOVAL 1 EA PATCH TD SCH (23:35)
[2017-07-29] MEDS: DIAZEPAM 5 MG TAB PO PRN ×2 (02:30→17:19)
[2017-07-29] MEDS: QUEtiapine FUMARATE 100 MG TAB PO PRN ×2 (02:30→17:18)
[2017-07-29] MEDS: LIDOCAINE 4%/MENTHOL 1% PATCH TD SCH (08:35)
[2017-07-29] MEDS: QUEtiapine FUMARATE 200 MG TAB PO SCH ×3 (08:45→19:11)
[2017-07-29] MEDS: PROPRANOLOL HCL 10 MG TAB PO SCH ×3 (08:45→19:10)
--- NOTE | 2017-07-29 13:52 | SOAPPROG ---
SOAP Progress Note Assessment/Plan: Assessment: Per Aiden Kwon's note: Assessment: Bipolar I disorder, with harry and psychosis. No improvement from yesterday ( see subjective/objective note). Continues to present with signs of harry and psychosis. Patient could benefit from continued inpatient hospitalization for crisis stabilization, safety, and medication evaluation. Plan: 07/28/17 13:47 1. Patient very disorganized, has no insight into nature and severity of mental health issues. Says he has "no mental problems" and states he only takes Seroquel for "sleep." Denies he would benefit from mood stabilizer. 2. Requests higher dose of lidocaine patch and wants to "taper" off Seroquel after giving informed consent to increase the dose yesterday. 3. On [facility] 07/29/17 13:49 1. Patient refused Seroquel this AM stating it made him "too tired." 2. On [facility] Subjective: Met with patient, reviewed chart and d/w staff. Patient very pleasant and polite with MD, inquiring about weather outside and "how's your morning, doc?" However, patient remains grandiose, delusional. He refused Seroquel this AM, stating he doesn't need to take "that much" Seroquel b/c he only needs it "for sleep" and not for mental illness. He denies any SI/HI. Objective: Vital Signs Temp Pulse Resp BP Pulse Ox 36.6 C 95 16 113/75 96 07/27/17 20:00 07/29/17 08:00 07/29/17 08:00 07/29/17 08:00 07/29/17 08:00 MSE: Affect: Elevated Mood: "Fine" TP: Tangential, illogical TC: Denies any SI/HI, no hallucinations, still grandiose, delusional Insight/Judgment: Impaired - Time Spent With Patient Time Spent With Patient: 15" - Pending Discharge Pending Discharge Within 24 Hours: No Pending Discharge Within 48 Hours: No ICD10 Worksheet Patient Problems: Problems Problem Status Onset Acute psychosis Acute Bipolar affective, manic, severe w/ psych Acute Sinus tachycardia Acute
[2017-07-29] MEDS: IBUPROFEN 200 MG TAB PO PRN (17:18)
[2017-07-29] MEDS: PATCH REMOVAL 1 EA PATCH TD SCH (19:13)
[2017-07-30] MEDS: MAG HYDROX/AL HYDROX/SIMETH 30 ML UDCUP PO PRN (00:59)
[2017-07-30] MEDS: DIAZEPAM 5 MG TAB PO PRN ×2 (00:59→09:04)
[2017-07-30] MEDS: QUEtiapine FUMARATE 100 MG TAB PO PRN ×4 (00:59→21:09)
[2017-07-30] MEDS: IBUPROFEN 200 MG TAB PO PRN (09:02)
[2017-07-30] MEDS: LIDOCAINE 4%/MENTHOL 1% PATCH TD SCH (09:04)
[2017-07-30] MEDS: PROPRANOLOL HCL 10 MG TAB PO SCH ×2 (09:05→20:11)
[2017-07-30] MEDS: QUEtiapine FUMARATE 200 MG TAB PO SCH (10:18)
[2017-07-30] MEDS ORDERED: QUEtiapine FUMARATE 200 MG TAB PO SCH (11:22)
--- NOTE | 2017-07-30 14:52 | SOAPPROG ---
SOAP Progress Note Assessment/Plan: Assessment: Bipolar I disorder, with harry and psychosis. No improvement over the weekend ( see subjective/objective note). Continues to present with signs of harry and psychosis. Patient could benefit from continued inpatient hospitalization for crisis stabilization, safety, and medication evaluation. Plan: Review psychotropic medication treatment informed consent and recommendations. After reviewing risk and benefits, patient agrees to stop increase Seroquel HS to 800 mg and change QD dose to PRN at 100 mg BID. No other medication changes at this time as more time is needed to determine ongoing tolerability and efficacy. Plan is to continue to observe patient for response and side effects from medications, and ongoing monitoring and evaluation. Next steps are for patient to meet with chronic care nurse to plan a safe discharge plan and establish outpatient services for ongoing treatment. Consider discharge early next week if patient is in stable condition, safe, and has a safe discharge plan. PSYCHOTROPIC MEDICATION TREATMENT INFORMED CONSENT and RECOMMENDATIONS: Review nature of condition, diagnosis, and prognosis. Review nature and purpose of psychotropic medication treatment. Review type of psychotropic medications being ordered. Review risk and benefits of psychotropic medication treatment. Review probable length of time patient will need to take medications. Review risk and benefits of not undergoing psychotropic medication treatment. Review alternative treatments to psychotropic medications. Review psychotropic medications contraindications, drug-drug interactions, side effects, and importance of reporting any side effects to a psychiatric provider or nurse during inpatient hospitalization, and upon discharge to patients psychiatric outpatient provider, primary care provider, or other health rn critical care. Review importance of asking a nurse, psychiatric provider, or primary care provider any questions or problems concerning the psychotropic medications. Verify patient understands the information that has been provided, and understands, accepts, and agrees to psychotropic medications. Review patients safety plan and importance of patient to report to staff while hospitalized if patient is ever a danger to self/others, or unable to care for self, and upon discharge, the importance for patient to contact [facility] or [facility], or go to the nearest emergency room, if patient is ever a danger to self/others, or unable to care for self. Recommend that upon discharge patient establish medication management treatment with a psychiatric provider, establishes routine therapy appointments, and follow-up with primary care provider. Verify patient understands and agrees to these recommendations. 07/30/17 14:54 Subjective: Following up with patient for evaluation of harry, psychosis, and safety. CC: Had a great weekend...did everything I was supposed to do. Patient denies symptoms of harry, reports he is sleeping well, 8 hours, denies A/V hallucinations, delusions, states he is responding well to medications. Patient requests to change Seroquel to higher dose at night as he has had to take 100 mg PRN after taking 600 mg po QHS STANLEY dose. Patient requests to have Seroquel changed to PRN during the day. Patient agrees to Seroquel 800 mg po QHS and Seroquel 100 mg po BID PRN. Patient reports his appetite is good, eating all meals, states his mood as euphoric, (great), reports he is tolerating medications with no report of side effects, is engaging in some of the groups, and denies SI/HI. Patient states he attended several groups over the weekend. Patient states he does not want any of his family involved in his care. Patient reports he is fluent in 36 languages including [email or web address]. 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 Patient states he speaks 6 languages in 3D. Objective: Vital Signs Temp Pulse Resp BP Pulse Ox 36.5 C 90 12 150/93 H 95 07/30/17 09:09 07/30/17 09:05 07/30/17 09:09 07/30/17 09:05 07/30/17 09:09 Consulted with treatment team staff for update on patients progress in treatment. Nurses report he is grandiose, tangential, and nonsensical answers to questions regarding his treatment. They report he continues to show no insight into his current condition. Nurses report patient refused AM dose of Seroquel on Sunday. Nurses report patient denies SI/HI, A/V hallucinations, and denies delusions. Nurses report patient expresses no psychiatric symptoms. Nurses report patient is not safe to discharge at this time. Symptoms noted during interview: neologism, grandiosity, hypertalkative, inability to test reality; tangential, irrelevant and illogical. Patient has shown no plant changer the weekend. Dr. Panda reported patient refused Seroquel on Sunday, presented grandiose, delusional, showed no plant changer the weekend, and was talking to himself and signing loudly in his room for hours straight. Patient is tolerating Seroquel 700 mg po HS (600 mg STANLEY + 100 mg PRN) with no report of side effects. Attire is appropriate dress is casual. Grooming status is disheveled. Ambulation is independent and gait is normal and coordinated. Posture is normal and relaxed. Eye contact is inappropriate and excessive. Motor activity is appropriate with no involuntary movements. Attitude is cooperative. Patient is attentive and relates well to this interviewer. Language production is spontaneous, rate is pressured, and latency of response is shortened, with appropriate tone, high volume, and hypertalkative in amount. Articulation is clear, with no speech impairments noted. Patient reports mood as euphoric with expansive affect. Patients thought process is illogical, tangential thought, neologism, and irrelevant at times. Associations are loose. The flow is pressured. Patient does not report suicidal/homicidal thoughts, ideas, or plans. Patient denies auditory, visual hallucinations. Patient denies delusions. Patient does not appear to be attending to internal stimuli. ORIENTATION: is full to person, full to place, partial to time, and absent to situation. ATTENTION/CONCENTRATION: are poor. INSIGHT: is poor. JUDGMENT: is poor. COGNITIVE: no evidence of gross cognitive dysfunction at any point during the interview; no evidence of apparent dysfunction in recent or remote memory noted. - Time Spent With Patient Time Spent With Patient: 30 minutes, met with patient individually. - Pending Discharge Pending Discharge Within 24 Hours: No Pending Discharge Within 48 Hours: No ICD10 Worksheet Patient Problems: Problems Problem Status Onset Acute psychosis Acute Bipolar affective, manic, severe w/ psych Acute Sinus tachycardia Acute
[2017-07-30] MEDS: LITHIUM CARBONATE ER 300 MG TAB PO SCH (20:12)
[2017-07-30] MEDS: PATCH REMOVAL 1 EA PATCH TD SCH (21:09)
[2017-07-31] MEDS: DIAZEPAM 5 MG TAB PO PRN ×3 (00:21→11:03)
[2017-07-31] MEDS: QUEtiapine FUMARATE 100 MG TAB PO PRN ×2 (04:26→07:57)
[2017-07-31] MEDS: IBUPROFEN 200 MG TAB PO PRN ×2 (04:26→17:49)
[2017-07-31] MEDS: PROPRANOLOL HCL 10 MG TAB PO SCH ×2 (07:58→19:27)
[2017-07-31] MEDS: LIDOCAINE 4%/MENTHOL 1% PATCH TD SCH (08:00)
[2017-07-31] MEDS ORDERED: QUEtiapine FUMARATE 200 MG TAB PO SCH (10:26)
[2017-07-31] MEDS ORDERED: risperiDONE 1 MG TAB PO SCH (10:30)
--- NOTE | 2017-07-31 10:31 | SOAPPROG ---
SOAP Progress Note Assessment/Plan: Assessment: Bipolar I disorder, with harry and psychosis. Patient is showing improvement ( see subjective/objective note). Continues to present with signs of harry and psychosis. Patient could benefit from continued inpatient hospitalization for crisis stabilization, safety, and medication evaluation. Plan: Review psychotropic medication treatment informed consent and recommendations. After reviewing risk and benefits, patient agrees to continue [place] ER 600 mg po QHS, change Valium to 10 mg po QD PRN, lower Seroquel to 600 mg po QHS and start Risperidone 1mg po QD. Plan is to switch from Seroquel to Risperidone as follows: (Day 1) Seroquel 600 HS/Risperidone 1 mg QD, (2) Seroquel 400 HS/Risperidone 2 mg QD, (3) Seroquel 200/Risperidone 3 mg, (4) Risperidone 3-4 mg QD. No other medication changes at this time as more time is needed to determine ongoing tolerability and efficacy. [place] trough level ordered for 08/04/17 at 0800. Plan is to continue to observe patient for response and side effects from medications, and ongoing monitoring and evaluation. Next steps are for patient to meet with foster care worker to plan a safe discharge plan and establish outpatient services for ongoing treatment. Consider discharge early next week if patient is in stable condition, safe, and has a safe discharge plan. PSYCHOTROPIC MEDICATION TREATMENT INFORMED CONSENT and RECOMMENDATIONS: Review nature of condition, diagnosis, and prognosis. Review nature and purpose of psychotropic medication treatment. Review type of psychotropic medications being ordered. Review risk and benefits of psychotropic medication treatment. Review probable length of time patient will need to take medications. Review risk and benefits of not undergoing psychotropic medication treatment. Review alternative treatments to psychotropic medications. Review psychotropic medications contraindications, drug-drug interactions, side effects, and importance of reporting any side effects to a psychiatric provider or nurse during inpatient hospitalization, and upon discharge to patients psychiatric outpatient provider, primary care provider, or other health client care manager. Review importance of asking a nurse, psychiatric provider, or primary care provider any questions or problems concerning the psychotropic medications. Verify patient understands the information that has been provided, and understands, accepts, and agrees to psychotropic medications. Review patients safety plan and importance of patient to report to staff while hospitalized if patient is ever a danger to self/others, or unable to care for self, and upon discharge, the importance for patient to contact [facility] or 911, or go to the nearest emergency room, if patient is ever a danger to self/others, or unable to care for self. Recommend that upon discharge patient establish medication management treatment with a psychiatric provider, establishes routine therapy appointments, and follow-up with primary care provider. Verify patient understands and agrees to these recommendations. 07/31/17 10:31 Subjective: Following up with patient for evaluation of harry, psychosis, and safety. CC: I made a list of things I wanted to talk to you about regarding my treatment. Patient reports he spoke to his mother last night on the phone, and called and left a message with his father. Patient states his family is encouraging him to take Risperidone as he has responded well to this medication in the past. Patient requests to switch from Seroquel to Risperidone, and agrees to continue [place] ER 600 mg po QHS, and requests to change Valium to 10 mg po QD. Patient denies symptoms of harry, reports he is sleeping well, 8 hours, denies A /V hallucinations, delusions, states he is responding well to medications. Patient reports his appetite is good, eating all meals, states his mood as euthymic (doing better) reports he is tolerating medications with no report of side effects, is engaging in some of the groups, and denies SI/HI. Patient states he attended groups yesterday. Objective: Vital Signs Temp Pulse Resp BP Pulse Ox 36.5 C 89 16 119/75 96 07/30/17 09:09 07/31/17 07:58 07/31/17 08:00 07/31/17 07:58 07/31/17 08:00 Consulted with treatment team staff for update on patients progress in treatment. Nurses report they have noticed an improvement in patients mentation. Nurses report patient is less grandiose, less tangential, and more logical and linear, with improved insight and ability to test reality. Nurses report patient took his medications as prescribed yesterday and has been engaged in his treatment. Nurses report patient denies SI/HI, A/V hallucinations, denies delusions, and slept 7.5 hours. Nurses report patient expresses no psychiatric symptoms. Symptoms noted during interview: hypertalkative. Patient is less grandiose today, more logical, and overall is showing improvement. Patient is tolerating Seroquel 800 mg po HS, [place] ER 600 mg po QHS, and Valium 5 mg po BID PRN with no report of side effects. Attire is appropriate dress is casual. Grooming status is clean and appropriate (patient shaved yesterday). Ambulation is independent and gait is normal and coordinated. Posture is normal and relaxed. Eye contact is inappropriate and excessive. Motor activity is appropriate with no involuntary movements. Attitude is cooperative. Patient is attentive and relates well to this interviewer. Language production is spontaneous, rate is less pressured, and latency of response is shortened, with appropriate tone, appropriate volume , and hypertalkative in amount. Articulation is clear, with no speech impairments noted. Patient reports mood as euthymic with congruent affect. Patients thought process is fairly logical, tangential thought, neologism, and irrelevant at times. Associations are loose. The flow is less pressured. Patient does not report suicidal/homicidal thoughts, ideas, or plans. Patient denies auditory, visual hallucinations. Patient denies delusions. Patient does not appear to be attending to internal stimuli. ORIENTATION: is full to person, full to place, partial to time, and absent to situation. ATTENTION/ CONCENTRATION: are poor. INSIGHT: is poor. JUDGMENT: is poor. COGNITIVE: no evidence of gross cognitive dysfunction at any point during the interview; no evidence of apparent dysfunction in recent or remote memory noted. - Time Spent With Patient Time Spent With Patient: 30 minutes, met with patient individually. - Pending Discharge Pending Discharge Within 24 Hours: No Pending Discharge Within 48 Hours: No ICD10 Worksheet Patient Problems: Problems Problem Status Onset Acute psychosis Acute Bipolar affective, manic, severe w/ psych Acute Sinus tachycardia Acute
[2017-07-31] MEDS ORDERED: GABAPENTIN 300 MG CAP PO SCH (16:30)
[2017-07-31] MEDS: PATCH REMOVAL 1 EA PATCH TD SCH (17:51)
[2017-07-31] MEDS: LITHIUM CARBONATE ER 300 MG TAB PO SCH (19:27)
[2017-08-01] MEDS: DIAZEPAM 5 MG TAB PO PRN (04:50)
[2017-08-01] MEDS ORDERED: risperiDONE 1 MG TAB PO SCH (08:23)
[2017-08-01] MEDS ORDERED: QUEtiapine FUMARATE 200 MG TAB PO SCH (08:23)
[2017-08-01] MEDS: LIDOCAINE 4%/MENTHOL 1% PATCH TD SCH (08:29)
[2017-08-01] MEDS: PROPRANOLOL HCL 10 MG TAB PO SCH ×2 (08:30→19:03)
[2017-08-01] MEDS ORDERED: GABAPENTIN 300 MG CAP PO SCH (09:00)
--- NOTE | 2017-08-01 09:26 | SOAPPROG ---
SOAP Progress Note Assessment/Plan: Assessment: Bipolar I disorder, with harry and psychosis. Patient is showing no improvement (see subjective/objective note) from yesterday, and appears to have taken a few steps backward from yesterdays presentation. Continues to present with signs of harry and psychosis. Patient could benefit from continued inpatient hospitalization for crisis stabilization, safety, and medication evaluation. Plan: Review psychotropic medication treatment informed consent and recommendations. After reviewing risk and benefits, patient agrees to continue current medications with following changes: increase Risperidone to 2 mg po QD and increase Gabapentin to 300 mg po BID. No other medication changes at this time as more time is needed to determine ongoing tolerability and efficacy. [place] trough level ordered for 08/04/17 at 0800. Initial plan yesterday was to taper Seroquel today to 400 mg po QHS; however, based on patients presentation today, will continue Seroquel at 600 mg po QHS with plan to reduce to 400 mg po QHS HS if patient has shown improvement and continues to tolerate medications and switch from Seroquel to Risperidone. Concern is that switching too quickly with lowering dose of Seroquel patients harry and psychosis symptoms may worsen and we will lose progress that has been made thus far. Plan is to continue to observe patient for response and side effects from medications, and ongoing monitoring and evaluation. Next steps are for patient to meet with rn patient care to plan a safe discharge plan and establish outpatient services for ongoing treatment. Consider discharge early next week if patient is in stable condition, safe, and has a safe discharge plan. PSYCHOTROPIC MEDICATION TREATMENT INFORMED CONSENT and RECOMMENDATIONS: Review nature of condition, diagnosis, and prognosis. Review nature and purpose of psychotropic medication treatment. Review type of psychotropic medications being ordered. Review risk and benefits of psychotropic medication treatment. Review probable length of time patient will need to take medications. Review risk and benefits of not undergoing psychotropic medication treatment. Review alternative treatments to psychotropic medications. Review psychotropic medications contraindications, drug-drug interactions, side effects, and importance of reporting any side effects to a psychiatric provider or nurse during inpatient hospitalization, and upon discharge to patients psychiatric outpatient provider, primary care provider, or other health certified social workers in health care. Review importance of asking a nurse, psychiatric provider, or primary care provider any questions or problems concerning the psychotropic medications. Verify patient understands the information that has been provided, and understands, accepts, and agrees to psychotropic medications. Review patients safety plan and importance of patient to report to staff while hospitalized if patient is ever a danger to self/others, or unable to care for self, and upon discharge, the importance for patient to contact [facility] or [facility], or go to the nearest emergency room, if patient is ever a danger to self/others, or unable to care for self. Recommend that upon discharge patient establish medication management treatment with a psychiatric provider, establishes routine therapy appointments, and follow-up with primary care provider. Verify patient understands and agrees to these recommendations. 08/01/17 09:24 Subjective: Following up with patient for evaluation of harry, psychosis, and safety. CC: Feeling more emotions. Patient denies symptoms of harry, reports he is sleeping well, 8 hours, denies A/V hallucinations, delusions, states he is responding well to medications. Patient reports his appetite is good, eating all meals, states his mood as euphoric (doing great) reports he is tolerating medications with no report of side effects, is engaging in some of the groups, and denies SI/HI. Patient states he attended groups yesterday. 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 Objective: Vital Signs Temp Pulse Resp BP Pulse Ox 36.4 C 86 16 119/79 93 08/01/17 06:22 08/01/17 06:22 08/01/17 06:22 08/01/17 06:22 08/01/17 06:22 Consulted with treatment team staff for update on patients progress in treatment. Nurses report they have not noticed an improvement in patients mentation since yesterday. Nurses report patient remains grandiose, tangential , and answers questions illogical, and nurses report no improvement since yesterday in insight or ability to test reality. Nurses report patient took his medications as prescribed yesterday and has been engaged in his treatment. Nurses report patient denies SI/HI, A/V hallucinations, denies delusions, slept 8 hours, attending groups, eating all meals, and engaged in ADLs. Nurses report patient expresses no psychiatric symptoms. Symptoms noted during interview: grandiose, hypertalkative, tangential, illogical and non-linear. Patients answers to interview questions this AM were illogical and irrelevant. Patient is grandiose, tangential, and non-linear/[id number] thought. Patient is tolerating Seroquel 600 mg po HS, [place] ER 600 mg po QHS, and Valium 10 mg po QD PRN, Risperidone 1 mg po QD, and Gabapentin 300 mg po QD with no report of side effects. Attire is appropriate dress is casual. Grooming status is clean and appropriate (patient shaved yesterday). Ambulation is independent and gait is normal and coordinated. Posture is normal and relaxed. Eye contact is inappropriate and excessive. Motor activity is appropriate with no involuntary movements. Attitude is cooperative. Patient is attentive and relates well to this interviewer. Language production is spontaneous, rate is less pressured, and latency of response is shortened, with appropriate tone, appropriate volume , and hypertalkative in amount. Articulation is clear, with no speech impairments noted. Patient reports mood as great with congruent affect ( euphoric). Patients thought process is illogical, tangential thought, neologism , and irrelevant answers to interview questions. Associations are loose. The flow is less pressured. Patient does not report suicidal/homicidal thoughts, ideas, or plans. Patient denies auditory, visual hallucinations. Patient denies delusions. Patient does not appear to be attending to internal stimuli. ORIENTATION: is full to person, full to place, partial to time, and absent to situation. ATTENTION/CONCENTRATION: are poor. INSIGHT: is poor. JUDGMENT: is poor. COGNITIVE: no evidence of gross cognitive dysfunction at any point during the interview; no evidence of apparent dysfunction in recent or remote memory noted. - Time Spent With Patient Time Spent With Patient: 30 minutes, met with patient individually. - Pending Discharge Pending Discharge Within 24 Hours: No Pending Discharge Within 48 Hours: No ICD10 Worksheet Patient Problems: Problems Problem Status Onset Acute psychosis Acute Bipolar affective, manic, severe w/ psych Acute Sinus tachycardia Acute
[2017-08-01] MEDS: GABAPENTIN 300 MG CAP PO SCH ×2 (15:30→19:03)
[2017-08-01] MEDS: QUEtiapine FUMARATE 200 MG TAB PO SCH (19:03)
[2017-08-01] MEDS: LITHIUM CARBONATE ER 300 MG TAB PO SCH (19:03)
[2017-08-01] MEDS: PATCH REMOVAL 1 EA PATCH TD SCH (20:55)
[2017-08-02] MEDS: DIAZEPAM 5 MG TAB PO PRN (00:24)
[2017-08-02] MEDS: IBUPROFEN 200 MG TAB PO PRN ×3 (04:32→17:32)
[2017-08-02] MEDS: GABAPENTIN 300 MG CAP PO SCH ×3 (08:53→19:26)
[2017-08-02] MEDS: PROPRANOLOL HCL 10 MG TAB PO SCH ×2 (08:53→19:28)
[2017-08-02] MEDS: risperiDONE 1 MG TAB PO SCH (08:53)
[2017-08-02] MEDS: LIDOCAINE 4%/MENTHOL 1% PATCH TD SCH (08:55)
--- NOTE | 2017-08-02 09:16 | SOAPPROG ---
SOAP Progress Note Assessment/Plan: Assessment: Bipolar I disorder, with harry and psychosis. Continued harry and psychosis. Patient shows some improvement from yesterday. He answers most interview questions illogical; however, does show some logical thought process asking this interviewer to call his family. Patient shows slight improvement in insight, and is able to list the current medications he is taking. Continues to present with signs of harry and psychosis. Patient could benefit from continued inpatient hospitalization for crisis stabilization, safety, and medication evaluation. Plan: Review psychotropic medication treatment informed consent and recommendations. After reviewing risk and benefits, patient agrees to continue current medications with following changes: increase Risperidone to 3 mg po QD. No other medication changes at this time as more time is needed to determine ongoing tolerability and efficacy. [place] trough level ordered for 08/03/17 at 0600. Plan is to continue to observe patient for response and side effects from medications, and ongoing monitoring and evaluation. Based on consider increasing [place] ER to 900 mg po HS if patient continues to tolerate and lithium level allows for this increase to be made safely. Based on patients presentation over last two weeks, main psychiatric signs noted are grandiose and tangentiality and lithium likely best treatment. Patients symptoms have also been managed in the past with Risperidone and will continue switch with taper of Seroquel and titration of Risperidone. Next steps are for patient to meet with healthcare management to plan a safe discharge plan and establish outpatient services for ongoing treatment. Consider discharge next week if patient is in stable condition, safe, and has a safe discharge plan. PSYCHOTROPIC MEDICATION TREATMENT INFORMED CONSENT and RECOMMENDATIONS: Review nature of condition, diagnosis, and prognosis. Review nature and purpose of psychotropic medication treatment. Review type of psychotropic medications being ordered. Review risk and benefits of psychotropic medication treatment. Review probable length of time patient will need to take medications. Review risk and benefits of not undergoing psychotropic medication treatment. Review alternative treatments to psychotropic medications. Review psychotropic medications contraindications, drug-drug interactions, side effects, and importance of reporting any side effects to a psychiatric provider or nurse during inpatient hospitalization, and upon discharge to patients psychiatric outpatient provider, primary care provider, or other health managed care provider. Review importance of asking a nurse, psychiatric provider, or primary care provider any questions or problems concerning the psychotropic medications. Verify patient understands the information that has been provided, and understands, accepts, and agrees to psychotropic medications. Review patients safety plan and importance of patient to report to staff while hospitalized if patient is ever a danger to self/others, or unable to care for self, and upon discharge, the importance for patient to contact [facility] or [facility], or go to the nearest emergency room, if patient is ever a danger to self/others, or unable to care for self. Recommend that upon discharge patient establish medication management treatment with a psychiatric provider, establishes routine therapy appointments, and follow-up with primary care provider. Verify patient understands and agrees to these recommendations. 08/02/17 09:15 Subjective: Following up with patient for evaluation of harry, psychosis, and safety. CC: Heres the book I was telling you about that my dad wrote. Patient provides summary of the book his dad wrote, Addiction on Trial. Patient presents today with a hand written plan and request of what he needs. Patient states the medications are helping with his thinking and working on things that he has been internalizing. Patient goes over his list and states, Sorry for being so verbose, just have a lot to go over with you. Patient states he would love to leave with a RX of benzos and a stock pile of Prasad as he has a lot he can do with that. Patient states he knows his dads wants him to get on opioids as soon as possible, and if he is to go back to [facility], he should be taking dopamine uptake inhibitors. Patient denies symptoms of harry, reports he is sleeping well, 8 hours, denies A/V hallucinations, delusions, states he is responding well to medications. Patient reports his appetite is good, eating all meals, states his mood as euphoric (doing awesome) reports he is tolerating medications with no report of side effects, is engaging in some of the groups, and denies SI/HI. Patient states he attended groups yesterday. Patient provides this interviewer with his brothers phone number, and asks that his interviewer call either his dad or his brother to get the mother of his childrens phone number so he can call her in order to set-up a time to reconnect with his children after he discharges. Patient also requested this interviewer call this father if unable to reach his brother to obtain phone number as he states his father likely has the phone number for mother of his children. Objective: Vital Signs Temp Pulse Resp BP Pulse Ox 36.6 C 95 16 129/85 H 98 08/02/17 06:41 08/02/17 08:53 08/02/17 06:41 08/02/17 08:53 08/02/17 06:41 Consulted with treatment team staff for update on patients progress in treatment. Nurses report they have not noticed an improvement in patients mentation over the last two days. Nurses report patient remains grandiose, tangential, and answers questions illogical, and nurses report no improvement since yesterday in insight or ability to test reality. Nurses report patient took his medications as prescribed yesterday and has been engaged in his treatment. Nurses report patient denies SI/HI, A/V hallucinations, denies delusions, and slept 5 hours. Nurses report patient being placed on ISB I due to inappropriate behavior with female patients yesterday evening. Patient was up early this AM (0400), intrusive and asking for any PRN available. Nurses report patient expresses no psychiatric symptoms. Called brother per patient request and no answer; phone number was correct. Called [facility] and left message for him to call back to provide phone number for mother of patient's children per patient request. Symptoms noted during interview: grandiose, hypertalkative, tangential, illogical and non-linear. Patients answers to interview questions this AM were illogical and irrelevant. Patient is continues to present grandiose, tangential, and non-linear/non-goal- directed thought. Patient is tolerating Seroquel 600 mg po HS, [place] ER 600 mg po QHS, and Valium 10 mg po QD PRN, Risperidone 2 mg po QD, and Gabapentin 300 mg po TID with no report of side effects. Attire is appropriate dress is casual. Grooming status is clean and appropriate (patient shaved yesterday). Ambulation is independent and gait is normal and coordinated. Posture is normal and relaxed. Eye contact is inappropriate and excessive. Motor activity is appropriate with no involuntary movements. Attitude is cooperative. Patient is attentive and relates well to this interviewer. Language production is spontaneous, rate is less pressured, and latency of response is shortened, with appropriate tone, appropriate volume , and hypertalkative in amount. Articulation is clear, with no speech impairments noted. Patient reports mood as great with congruent affect ( euphoric). Patients thought process is illogical, tangential thought, neologism , and irrelevant answers to interview questions. Associations are loose. The flow is less pressured. Patient does not report suicidal/homicidal thoughts, ideas, or plans. Patient denies auditory, visual hallucinations. Patient denies delusions. Patient does not appear to be attending to internal stimuli. ORIENTATION: is full to person, full to place, partial to time, and absent to situation. ATTENTION/CONCENTRATION: are poor. INSIGHT: is poor. JUDGMENT: is poor. COGNITIVE: no evidence of gross cognitive dysfunction at any point during the interview; no evidence of apparent dysfunction in recent or remote memory noted. - Time Spent With Patient Time Spent With Patient: 30 minutes, met with patient individually. - Pending Discharge Pending Discharge Within 24 Hours: No Pending Discharge Within 48 Hours: No ICD10 Worksheet Patient Problems: Problems Problem Status Onset Acute psychosis Acute Bipolar affective, manic, severe w/ psych Acute Sinus tachycardia Acute
[2017-08-02] MEDS ORDERED: LORazepam 1 MG TAB PO ONE (12:37)
[2017-08-02] MEDS: MAGNESIUM HYDROXIDE 30 ML UDCUP PO PRN (15:00)
[2017-08-02] MEDS: LITHIUM CARBONATE ER 300 MG TAB PO SCH (17:32)
[2017-08-02] MEDS: QUEtiapine FUMARATE 200 MG TAB PO SCH (19:28)
[2017-08-02] MEDS: PATCH REMOVAL 1 EA PATCH TD SCH (19:29)
[2017-08-03] MEDS: DIAZEPAM 5 MG TAB PO PRN (01:34)
[2017-08-03] MEDS: IBUPROFEN 200 MG TAB PO PRN ×3 (01:35→13:31)
[2017-08-03] MEDS: MAGNESIUM HYDROXIDE 30 ML UDCUP PO PRN ×2 (03:34→19:15)
[2017-08-03] MEDS: PROPRANOLOL HCL 10 MG TAB PO SCH ×2 (07:33→19:12)
[2017-08-03] MEDS: risperiDONE 1 MG TAB PO SCH (07:33)
[2017-08-03] MEDS: GABAPENTIN 300 MG CAP PO SCH ×3 (07:33→19:11)
[2017-08-03] MEDS: LIDOCAINE 4%/MENTHOL 1% PATCH TD SCH (07:34)
[2017-08-03] MEDS ORDERED: LORazepam 1 MG TAB PO PRN (09:15)
--- NOTE | 2017-08-03 11:39 | SOAPPROG ---
SOAP Progress Note Assessment/Plan: Assessment: Bipolar I disorder, with harry and psychosis. Patient shows some improvement from yesterday. He answers most interview questions illogical and provides irrelevant answers to interview questions; however, does show some logical thought process with more logical answers regarding discharge plans and willingness to connect with his family. Patient shows slight improvement in insight, and is able to list the current medications he is taking. Continues to present with signs of harry with psychosis. Patient could benefit from continued inpatient hospitalization for crisis stabilization, safety, and medication evaluation. Plan: Review psychotropic medication treatment informed consent and recommendations. After reviewing options and risk and benefits, patient agrees to continue current medications with following changes: increase [place] ER to 600 mg po BID. [place] level this AM was 0.3 with dosing at 600 mg po QHS. No other medication changes now as more time is needed to determine ongoing tolerability and efficacy. El Rito trough level ordered for 08/08/17 at 0600. Plan is to continue to observe patient for response and side effects from medications, and ongoing monitoring and evaluation. Based on patients presentation over last two weeks, main psychiatric signs noted are grandiosity and tangentiality and lithium likely best treatment. Focus will be to treat acute symptoms with Risperidone and Seroquel with continued cross taper, once stable Risperidone monotherapy with [place] Rito. Patients symptoms have improved in the past with Risperidone and will continue switch with taper of Seroquel and titration of Risperidone. Will continue Risperidone 3 mg po QD and Seroquel 600 mg po QHS over the weekend and then consider lower Seroquel to 400 mg po QHS on Sunday; continued slow taper of Seroquel to allow patient to readapt to the withdrawal of blocking cholinergic, histaminergic, and alpha-1 receptors. Next steps are for patient to meet with hospice home care coordinator to plan a safe discharge plan and establish outpatient services for ongoing treatment. Consider discharge Sunday next week if patient is in stable condition, safe, and has a safe discharge plan. PSYCHOTROPIC MEDICATION TREATMENT INFORMED CONSENT and RECOMMENDATIONS: Review nature of condition, diagnosis, and prognosis. Review nature and purpose of psychotropic medication treatment. Review type of psychotropic medications being ordered. Review risk and benefits of psychotropic medication treatment. Review probable length of time patient will need to take medications. Review risk and benefits of not undergoing psychotropic medication treatment. Review alternative treatments to psychotropic medications. Review psychotropic medications contraindications, drug-drug interactions, side effects, and importance of reporting any side effects to a psychiatric provider or nurse during inpatient hospitalization, and upon discharge to patients psychiatric outpatient provider, primary care provider, or other health group care worker. Review importance of asking a nurse, psychiatric provider, or primary care provider any questions or problems concerning the psychotropic medications. Verify patient understands the information that has been provided, and understands, accepts, and agrees to psychotropic medications. Review patients safety plan and importance of patient to report to staff while hospitalized if patient is ever a danger to self/others, or unable to care for self, and upon discharge, the importance for patient to contact [facility] or [facility], or go to the nearest emergency room, if patient is ever a danger to self/others, or unable to care for self. Recommend that upon discharge patient establish medication management treatment with a psychiatric provider, establishes routine therapy appointments, and follow-up with primary care provider. Verify patient understands and agrees to these recommendations. 08/03/17 11:38 Subjective: Following up with patient for evaluation of harry, psychosis, and safety. CC: Going good met with friend of mine last nighthe brought lilaa for me. Patient appropriately describes conversation he had with his friend, friend, last night when he visited him. Patient denies symptoms of harry, reports he is sleeping well, 8 hours, denies A/V hallucinations, delusions, states he is responding well to medications. Patient reports his appetite is good, eating all meals, states his mood as euphoric (doing awesome) reports he is tolerating medications with no report of side effects, is engaging in some of the groups, and denies SI/HI. Patient states he attended groups yesterday. Patient reports he left a phone message with his dad and his brother this morning, and reports after discharging he has several options including staying with a friend in [place], staying in the basement of a friends house in [facility] , or just couch surfing to catch-up with friends in the area. Patient reports he has not heard from the mother of his children. Patient then switches topics and states he will likely need at least 6 Viagra a day when he discharges because all he wants to do is make love. Patient states he wants to leave the maximum amount of Seroquel, and patient requests a RX of Percocet, Vicodin, and a low dose of an opioid as he states this would likely appease his dadto get started on opiates as soon as possible. Objective: Vital Signs Temp Pulse Resp BP Pulse Ox 36.6 C 92 14 129/76 H 94 08/02/17 06:41 08/03/17 08:10 08/03/17 08:10 08/03/17 08:10 08/02/17 08:50 Consulted with treatment team staff for update on patients progress in treatment. Nurses report patient has made slight improvement since yesterdaynotably patients willingness to involve his family in his treatment, reaching out to friends, and attending and engaging in groups. Nurses report patient presents less grandiose and more logical; continues to be tangential, and is currently not goal directed. Nurses report patient took his medications as prescribed yesterday and has been engaged in his treatment. Nurses report patient denies SI/HI, A/V hallucinations, denies delusions, and slept 5 hours. Cognitive testing with patient today as follows: Retention / Recall: patient able to repeat back these numbers: 5 1 5 0 3 / 9 6 8 3 6 4 2 without difficulty Abstractions: What does statement Rolling stones gather no tripathi mean to you? Patients answer, Where I can hang my hat is my home. How is an airplane similar to a bird? Patients answer, They can see in both the past, present, and future from a birds eye high altitude view...its true. Memory: Patient able to recall items (Pin, Car, Duck) after 5 minutes Judgement: If you were in a restaurant and heard a fire alarm go off, what would you do? Patients answer, Calmly assess if false alarm by looking for smoke, and then look for exits, and the secure my children first. If you found a stamped, sealed envelope on the side walk, what would you do with it? Patients answer, Take to nearest PO. Orientation: person, place, and time Calculations: Counts backwards by 7 starting from 100 without difficulty Knowledge: Current president of the [place]? Patients answer, Edward Vang. Signs noted during interview: less grandiose, less hypertalkative, remains tangential, less illogical; non-linear, [id number]; poor insight and poor judgment Patient is tolerating Seroquel 600 mg po HS, [place] Rito ER 600 mg po QHS, and Valium 10 mg po QD PRN, Ativan 1 mg po QD PRN, Risperidone 3 mg po QD, and Gabapentin 300 mg po TID with no report of side effects. Attire is appropriate dress is casual. Grooming status is clean and appropriate (patient shaved yesterday). Ambulation is independent and gait is normal and coordinated. Posture is normal and relaxed. Eye contact is inappropriate and excessive. Motor activity is appropriate with no involuntary movements. Attitude is cooperative. Patient is attentive and relates well to this interviewer. Language production is spontaneous, rate is less pressured, and latency of response is shortened, with appropriate tone, appropriate volume , and hypertalkative in amount. Articulation is clear, with no speech impairments noted. Patient reports mood as great with congruent affect ( euphoric). Patients thought process is illogical, tangential thought, neologism , and irrelevant answers to interview questions. Associations are loose. The flow is less pressured. Patient does not report suicidal/homicidal thoughts, ideas, or plans. Patient denies auditory, visual hallucinations. Patient denies delusions. Patient does not appear to be attending to internal stimuli. ORIENTATION: is full to person, full to place, partial to time, and absent to situation. ATTENTION/CONCENTRATION: are poor. INSIGHT: is poor. JUDGMENT: is poor. COGNITIVE: see testing above; no evidence of apparent dysfunction in recent or remote memory noted. - Time Spent With Patient Time Spent With Patient: 30 minutes, met with patient individually. - Pending Discharge Pending Discharge Within 24 Hours: No Pending Discharge Within 48 Hours: No ICD10 Worksheet Patient Problems: Problems Problem Status Onset Acute psychosis Acute Bipolar affective, manic, severe w/ psych Acute Sinus tachycardia Acute
[2017-08-03] MEDS ORDERED: LITHIUM CARBONATE ER 300 MG TAB PO SCH ×2 (12:00→21:00)
[2017-08-03] MEDS: LORazepam 1 MG TAB PO PRN (12:20)
[2017-08-03] MEDS: LITHIUM CARBONATE ER 300 MG TAB PO SCH (19:11)
[2017-08-03] MEDS: QUEtiapine FUMARATE 200 MG TAB PO SCH (19:12)
[2017-08-03] MEDS: PATCH REMOVAL 1 EA PATCH TD SCH (19:12)
[2017-08-04] MEDS: DIAZEPAM 5 MG TAB PO PRN (02:54)
[2017-08-04] MEDS: GABAPENTIN 300 MG CAP PO SCH ×3 (08:48→20:06)
[2017-08-04] MEDS: LITHIUM CARBONATE ER 300 MG TAB PO SCH ×2 (08:48→20:05)
[2017-08-04] MEDS: PROPRANOLOL HCL 10 MG TAB PO SCH ×2 (08:48→20:05)
[2017-08-04] MEDS: LIDOCAINE 4%/MENTHOL 1% PATCH TD SCH (08:49)
[2017-08-04] MEDS: risperiDONE 1 MG TAB PO SCH (08:49)
[2017-08-04] MEDS: LORazepam 1 MG TAB PO PRN (10:42)
[2017-08-04] MEDS: IBUPROFEN 200 MG TAB PO PRN (13:18)
--- NOTE | 2017-08-04 13:27 | SOAPPROG ---
SOAP Progress Note Assessment/Plan: Assessment: Per Aiden Kwon's note: Bipolar I disorder, with harry and psychosis. Patient shows some improvement from yesterday. He answers most interview questions illogical and provides irrelevant answers to interview questions; however, does show some logical thought process with more logical answers regarding discharge plans and willingness to connect with his family. Patient shows slight improvement in insight, and is able to list the current medications he is taking. Continues to present with signs of harry with psychosis. Patient could benefit from continued inpatient hospitalization for crisis stabilization, safety, and medication evaluation. 08/04/17 13:22 1. Patient is less labile, but continues to be delusional and often irrational. 2. Patient is eating and sleeping well (9 hrs of sleep last night). 3. Patient told RN "I have no anxiety" when requesting his PRN benzo. 4. Family told CC on Sunday that he sounds like he is improving when they talk to him on phone. 5. Aiden Kwon has been making med changes: decreasing Seroquel and starting patient on Risperdal, titrating [place] to more therapeutic dose. Patient consents to continue these changes. 6. C Subjective: Met with patient, reviewed chart and d/w staff. Patient was present in milieu after breakfast, attended goals group, and stayed for approx. 10 min of psychoeducation group. Patient spent the rest of the morning and early afternoon in his room, napping. Patient presents as less labile, not singing or responding to stimuli. However, he is still disorganized and illogical at times. He denies any SI/HI. Objective: Vital Signs Temp Pulse Resp BP Pulse Ox 36.6 C 105 H 16 123/90 H 95 08/02/17 06:41 08/04/17 08:48 08/04/17 08:45 08/04/17 08:48 08/04/17 08:45 MSE: Affect: Calmer, less labile Mood: "OK" TP: Disorganized, illogical at times TC: Denies any SI/HI, no AH/VH Insight/Judgment: Improving - Time Spent With Patient Time Spent With Patient: 15" - Pending Discharge Pending Discharge Within 24 Hours: No Pending Discharge Within 48 Hours: No ICD10 Worksheet Patient Problems: Problems Problem Status Onset Acute psychosis Acute Bipolar affective, manic, severe w/ psych Acute Sinus tachycardia Acute
[2017-08-04] MEDS: PATCH REMOVAL 1 EA PATCH TD SCH (14:25)
[2017-08-04] MEDS: QUEtiapine FUMARATE 200 MG TAB PO SCH (20:06)
[2017-08-05] MEDS: DIAZEPAM 5 MG TAB PO PRN (01:25)
[2017-08-05] MEDS: LIDOCAINE 4%/MENTHOL 1% PATCH TD SCH (08:51)
[2017-08-05] MEDS: GABAPENTIN 300 MG CAP PO SCH ×3 (08:52→19:41)
[2017-08-05] MEDS: PROPRANOLOL HCL 10 MG TAB PO SCH ×2 (08:52→19:42)
[2017-08-05] MEDS: LITHIUM CARBONATE ER 300 MG TAB PO SCH ×2 (08:52→19:41)
[2017-08-05] MEDS: risperiDONE 1 MG TAB PO SCH (08:53)
[2017-08-05] MEDS: LORazepam 1 MG TAB PO PRN (11:25)
[2017-08-05] MEDS: IBUPROFEN 200 MG TAB PO PRN ×2 (11:25→19:03)
[2017-08-05] MEDS: PATCH REMOVAL 1 EA PATCH TD SCH (14:27)
--- NOTE | 2017-08-05 14:53 | SOAPPROG ---
SOAP Progress Note Assessment/Plan: Assessment: Per Aiden Kwon's note: Bipolar I disorder, with harry and psychosis. Patient shows some improvement from yesterday. He answers most interview questions illogical and provides irrelevant answers to interview questions; however, does show some logical thought process with more logical answers regarding discharge plans and willingness to connect with his family. Patient shows slight improvement in insight, and is able to list the current medications he is taking. Continues to present with signs of harry with psychosis. Patient could benefit from continued inpatient hospitalization for crisis stabilization, safety, and medication evaluation. 08/04/17 13:22 1. Patient is less labile, but continues to be delusional and often irrational. 2. Patient is eating and sleeping well (9 hrs of sleep last night). 3. Patient told RN "I have no anxiety" when requesting his PRN benzo. 4. Family told CC on Sunday that he sounds like he is improving when they talk to him on phone. 5. Aiden Kwon has been making med changes: decreasing Seroquel and starting patient on Risperdal, titrating [place] to more therapeutic dose. Patient consents to continue these changes. 6. [facility] 08/05/17 14:43 1. Patient is still extremely delusional and grandiose. These sxs do not seem to be improving. 2. Patient wants to see provider at [facility], where he has received treatment in past. 3. Patient has very little insight into his mental illness and no good judgment when it comes to his meds. 4. [facility] Subjective: Met with patient, reviewed chart and d/w staff. Patient reports that he would like to d/c before Sunday. He plans to "collect my possession" from various friends in [place] and then "rent a [employer]," but can't say where he'd take his belongings. He plans to see "Dr. Garcia" at [facility]. He used to see psychiatrist, Dr. Agustin, there in the past. He claims Dr. Agustin was prescribing Marinol which he likes "a lot." Patient wrote a detailed, digressive note about what type of treatment he wants at [facility] ( see note in chart). 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 Patient denies any SI/HI. Objective: Vital Signs Temp Pulse Resp BP Pulse Ox 36.6 C 109 H 16 141/96 H 95 08/05/17 06:33 08/05/17 08:52 08/05/17 08:50 08/05/17 08:52 08/05/17 08:50 MSE: Affect: Euthymic Mood: "Great" TP: Tangential, illogical TC: Denies any SI/HI, denies any AH/VH, still very delusional and grandiose Insight/Judgment: Poor - Time Spent With Patient Time Spent With Patient: 20" - Pending Discharge Pending Discharge Within 24 Hours: No Pending Discharge Within 48 Hours: No ICD10 Worksheet Patient Problems: Problems Problem Status Onset Acute psychosis Acute Bipolar affective, manic, severe w/ psych Acute Sinus tachycardia Acute
[2017-08-05] MEDS: QUEtiapine FUMARATE 200 MG TAB PO SCH (19:42)
[2017-08-06] MEDS: DIAZEPAM 5 MG TAB PO PRN (03:51)
[2017-08-06] MEDS: risperiDONE 1 MG TAB PO SCH (08:49)
[2017-08-06] MEDS: LITHIUM CARBONATE ER 300 MG TAB PO SCH ×2 (08:49→17:54)
[2017-08-06] MEDS: PROPRANOLOL HCL 10 MG TAB PO SCH ×2 (08:50→17:58)
[2017-08-06] MEDS: GABAPENTIN 300 MG CAP PO SCH ×3 (08:50→20:38)
[2017-08-06] MEDS: LIDOCAINE 4%/MENTHOL 1% PATCH TD SCH (09:05)
[2017-08-06] MEDS ORDERED: risperiDONE 1 MG TAB PO ONE (09:07)
--- NOTE | 2017-08-06 11:31 | SOAPPROG ---
SOAP Progress Note Assessment/Plan: Assessment: Bipolar I disorder, with harry and psychosis. Patient shows no improvement from Sunday. He answers most interview questions illogical and provides irrelevant answers to interview questions. Patient continues to be delusional and lacks insight into his current condition, and shows no judgement regarding his treatment. Currently is a high risk for using illicit substances and stopping psych medications. Continues to present with signs of harry with psychosis. Patient could benefit from continued inpatient hospitalization for crisis stabilization, safety, and medication evaluation. Plan: Review psychotropic medication treatment informed consent and recommendations. After reviewing options and risk and benefits, patient agrees to continue current medications with following changes: increase Risperidone to 4 mg po QD and decrease Seroquel to 400 mg po QHS. No other medication changes now as more time is needed to determine ongoing tolerability and efficacy. Jessie trough level ordered for 08/08/17 at 0600. Plan is to continue to observe patient for response and side effects from medications, and ongoing monitoring and evaluation. Based on patients presentation over last two weeks, main psychiatric signs noted are grandiosity and tangentiality and lithium likely best treatment. Focus will be to treat acute symptoms with Risperidone and Seroquel with continued cross taper, once stable Risperidone monotherapy with Jessie. Patients symptoms have improved in the past with Risperidone and will continue switch with taper of Seroquel and titration of Risperidone. Will continue Risperidone 4 mg po QD and Seroquel 400 mg po QHS for the next several days and then consider lower Seroquel to 200 mg po QHS on Sunday; continued slow taper of Seroquel to allow patient to readapt to the withdrawal of blocking cholinergic, histaminergic, and alpha-1 receptors. Next steps are for patient to meet with direct care supervisor to plan a safe discharge plan and establish outpatient services for ongoing treatment. Consider discharge Sunday next week if patient is in stable condition, safe, and has a safe discharge plan. PSYCHOTROPIC MEDICATION TREATMENT INFORMED CONSENT and RECOMMENDATIONS: Review nature of condition, diagnosis, and prognosis. Review nature and purpose of psychotropic medication treatment. Review type of psychotropic medications being ordered. Review risk and benefits of psychotropic medication treatment. Review probable length of time patient will need to take medications. Review risk and benefits of not undergoing psychotropic medication treatment. Review alternative treatments to psychotropic medications. Review psychotropic medications contraindications, drug-drug interactions, side effects, and importance of reporting any side effects to a psychiatric provider or nurse during inpatient hospitalization, and upon discharge to patients psychiatric outpatient provider, primary care provider, or other health childcare director. Review importance of asking a nurse, psychiatric provider, or primary care provider any questions or problems concerning the psychotropic medications. Verify patient understands the information that has been provided, and understands, accepts, and agrees to psychotropic medications. Review patients safety plan and importance of patient to report to staff while hospitalized if patient is ever a danger to self/others, or unable to care for self, and upon discharge, the importance for patient to contact [facility] or [facility], or go to the nearest emergency room, if patient is ever a danger to self/others, or unable to care for self. Recommend that upon discharge patient establish medication management treatment with a psychiatric provider, establishes routine therapy appointments, and follow-up with primary care provider. Verify patient understands and agrees to these recommendations. 08/06/17 11:30 Subjective: Following up with patient for evaluation of harry, psychosis, and safety. CC: Feeling back to normal. 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 Patient requests a RX of Viagra prior to discharge, and states he will need 6 Viagra a day as he plans on making love most of the time, and reports a goal of having at least 3 lady friends after discharge. Patient denies symptoms of harry, reports he is sleeping well, 8 hours, denies A/V hallucinations, delusions, states he is responding well to medications. Patient reports his appetite is good, eating all meals, states his mood as euphoric (doing awesome) reports he is tolerating medications with no report of side effects, is engaging in some of the groups, and denies SI/HI. Patient states he attended groups yesterday. Patient reports he left a phone message with his dad and his brother this morning. Objective: Vital Signs Temp Pulse Resp BP Pulse Ox 36.4 C 81 16 107/70 94 08/06/17 06:38 08/06/17 06:38 08/06/17 06:38 18 06:38 08/06/17 06:38 Consulted with treatment team staff for update on patients progress in treatment. Nurses report a noticeable improvement upon starting switch from Seroquel to Risperidone and starting Jessie; most notably patient is less grandiose, irritable, and less intrusive. Nurses report patient is taking his medications as prescribed and has been engaged in his treatment. Nurses report patient denies SI/HI, A/V hallucinations, denies delusions, and slept 8.5 hours. S/S noted during interview: grandiosity, hypertalkative, tangential, answers to interview questions are irrelevant; non-linear, [id number], nonsensical, poor insight and poor judgment Patient is tolerating Seroquel 600 mg po HS, Jessie ER 600 mg po QAM and Jessie ER 900 mg po QHS, and Valium 10 mg po QD PRN, Ativan 1 mg po QD PRN, Risperidone 3 mg po QD, and Gabapentin 300 mg po TID with no report of side effects. SEs: During interview noticed slight bi-lat hand tremor and when asked, patient reports he just finished up working out in this room and was also hungry; stating it may be due to low blood sugar. Patient reports he is tolerating the SE and is advised to report to nurses or this interviewer if tremor does not improve or worsens. Will continue to monitor for SEs. No other SE noted or reported. Attire is appropriate dress is casual. Grooming status is clean and appropriate (patient shaved yesterday). Ambulation is independent and gait is normal and coordinated. Posture is normal and relaxed. Eye contact is inappropriate and excessive. Motor activity is appropriate with no involuntary movements. Attitude is cooperative. Patient is attentive and relates well to this interviewer. Language production is spontaneous, rate is less pressured, and latency of response is shortened, with appropriate tone, appropriate volume , and hypertalkative in amount. Articulation is clear, with no speech impairments noted. Patient reports mood as great with congruent affect ( euphoric). Patients thought process is illogical, grandiose, tangential thought , neologism, and irrelevant answers to interview questions. Associations are loose. The flow is less pressured. Patient does not report suicidal/homicidal thoughts, ideas, or plans. Patient denies auditory, visual hallucinations. Patient denies delusions. Patient does not appear to be attending to internal stimuli. ORIENTATION: is full to person, full to place, partial to time, and absent to situation. ATTENTION/CONCENTRATION: are poor. INSIGHT: is poor. JUDGMENT: is poor. COGNITIVE: unable to appropriately assess patients cognitive function due to current psychosis; no evidence of apparent dysfunction in recent or remote memory noted. - Time Spent With Patient Time Spent With Patient: 30 minutes, met with patient individually. - Pending Discharge Pending Discharge Within 24 Hours: No Pending Discharge Within 48 Hours: No ICD10 Worksheet Patient Problems: Problems Problem Status Onset Acute psychosis Acute Bipolar affective, manic, severe w/ psych Acute Sinus tachycardia Acute
[2017-08-06] MEDS: LORazepam 1 MG TAB PO PRN (12:25)
[2017-08-06] MEDS: QUEtiapine FUMARATE 200 MG TAB PO SCH (18:47)
[2017-08-06] MEDS: PATCH REMOVAL 1 EA PATCH TD SCH (20:38)
[2017-08-07] MEDS ORDERED: BENZTROPINE MESYLATE 2 MG/2 ML INJ IM PRN (09:00)
[2017-08-07] MEDS ORDERED: risperiDONE 2 MG TAB PO SCH (09:00)
[2017-08-07] MEDS ORDERED: LORazepam 1 MG TAB PO ONE (09:25)
[2017-08-07] MEDS ORDERED: LORazepam 2 MG/ML INJ IVP ONE (09:42)
[2017-08-07] MEDS ORDERED: HALOPERIDOL LACT 5 MG/ML INJ ONE (09:45)
[2017-08-07] MEDS ORDERED: QUEtiapine FUMARATE 200 MG TAB PO ONE (13:30)
[2017-08-07] MEDS ORDERED: QUEtiapine FUMARATE 200 MG TAB ONE (13:39)
[2017-08-07] MEDS ORDERED: LORazepam 1 MG TAB ONE (23:30)
[2017-08-08] MEDS: IBUPROFEN 200 MG TAB PO PRN (06:52)
[2017-08-08] MEDS: PROPRANOLOL HCL 10 MG TAB PO SCH ×4 (08:19→20:04)
[2017-08-08] MEDS: LITHIUM CARBONATE ER 300 MG TAB PO SCH ×4 (08:19→20:02)
[2017-08-08] MEDS: LIDOCAINE 4%/MENTHOL 1% PATCH TD SCH ×2 (08:20→08:43)
[2017-08-08] MEDS: GABAPENTIN 300 MG CAP PO SCH ×4 (08:30→20:07)
[2017-08-08] MEDS: PATCH REMOVAL 1 EA PATCH TD SCH ×2 (08:43→20:13)
[2017-08-08] MEDS: QUEtiapine FUMARATE 200 MG TAB PO SCH (08:45)
[2017-08-08] MEDS ORDERED: QUEtiapine FUMARATE 200 MG TAB PO SCH ×3 (09:00→21:00)
--- NOTE | 2017-08-08 11:45 | SOAPPROG ---
SOAP Progress Note Assessment/Plan: LATE ENTRY FROM 08/07/17 DUE TO MEDITECH DOWNTIME Assessment: Bipolar I disorder, with harry and psychosis. Patient shows no improvement ( see subjective/objective note). Plan: Review psychotropic medication treatment informed consent and recommendations. After reviewing options and risk and benefits, patient agrees to continue current medications with following changes. Haldol 5 mg po now for agitation, Ativan 2 mg po now for agitation, and Benadryl 50 mg po now for EPS prophylaxis. DC Risperidone, change Seroquel to 400 mg po BID mg with first dose at 1600, DC Haldol 5 mg po Q6HRS PRN and DC Benadryl 50 mg po Q6HRS PRN. [place] level 0.9 drawn 0600 this AM, and will continue. No other changes at this time. Plan is to continue to observe patient for response and side effects from medications, and ongoing monitoring and evaluation. Consensus from treatment team and based on patients presentation the over the last week, patient responded better to high dose Seroquel and harry and psychosis symptoms seemed to wax and wane when began switch from Seroquel to Risperidone. Patient agrees with plan to switch back to Seroquel with target total daily dose of 1200 mg. Patient has tolerated total of Seroquel 1,000 mg per day for over a week during current hospitalization and may responded better to higher doses of Seroquel based on history of this trial. Next steps are for patient to meet with director critical care to plan a safe discharge plan and establish outpatient services for ongoing treatment. Consider discharge Sunday of next week if patient is in stable condition, safe, and has a safe discharge plan. PSYCHOTROPIC MEDICATION TREATMENT INFORMED CONSENT and RECOMMENDATIONS: Review nature of condition, diagnosis, and prognosis. Review nature and purpose of psychotropic medication treatment. Review type of psychotropic medications being ordered. Review risk and benefits of psychotropic medication treatment. Review probable length of time patient will need to take medications. Review risk and benefits of not undergoing psychotropic medication treatment. Review alternative treatments to psychotropic medications. Review psychotropic medications contraindications, drug-drug interactions, side effects, and importance of reporting any side effects to a psychiatric provider or nurse during inpatient hospitalization, and upon discharge to patients psychiatric outpatient provider, primary care provider, or other health childcare aide. Review importance of asking a nurse, psychiatric provider, or primary care provider any questions or problems concerning the psychotropic medications. Verify patient understands the information that has been provided, and understands, accepts, and agrees to psychotropic medications. Review patients safety plan and importance of patient to report to staff while hospitalized if patient is ever a danger to self/others, or unable to care for self, and upon discharge, the importance for patient to contact [facility] or [facility], or go to the nearest emergency room, if patient is ever a danger to self/others, or unable to care for self. Recommend that upon discharge patient establish medication management treatment with a psychiatric provider, establishes routine therapy appointments, and follow-up with primary care provider. Verify patient understands and agrees to these recommendations. 08/08/17 11:47 Subjective: Following up with patient for evaluation of harry, psychosis, and safety. CC: "Not taking my meds until I can speak to you and Varghese...not talking to you until Varghese is present...lets meet in your office now...in private." Patient demands to be discharged, threatens this interviewer and behavioral health care manager. 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 Nurses report patient is confrontational and irritable, refusing AM medications. Nurses report patient denies SI/HI, A/V hallucinations, denies delusions, and slept 4 hours. Patient has not reported any SEs to nurses and reports to them he is tolerating medications. Patient meets with this interviewer and behavioral health care manager in office per patient request. The patient is a well-nourished, well developed, male, looking stated chronological age. Attire is appropriate, dress is casual, and disheveled. Grooming status is inappropriate and disheveled and unshaven. Ambulation is independent. Gait is normal and coordinated. Posture is edge of seat, tense, posturing, leaning toward this interviewer in a threatening manner. Eye contact is inappropriate, glaring, and excessive. Motor activity is overactive with exaggerated gestures, shacking fists and pointing finger at this interviewer; with no involuntary movements. Attitude is uncooperative, hostile , and angry. Patient appears acutely psychotic and does not relate well to this interviewer or behavioral health care manager that is present. Language production is spontaneous. Rate is pressured, and rapid. Latency of response is shortened, with irritable and angry tone, and high, inappropriate volume, and amount is hypertalkative and unable to interrupt at anytime. Articulation is mumbled with no evidencing of speech impairments. Patient reports mood as pissed with congruent with affect. Patients thought process is non-linear and illogical, with loose associations, and tangential thought. Patient does not report suicidal/homicidal thoughts, ideas, or plans. Patient denies auditory, visual hallucinations. Patient denies delusions. Patient does not appear to be attending to internal stimuli. Patient is oriented to person, place, and place. Attention and concentration are poor. Insight is poor. Judgment is poor. Unable to appropriately assess cognitive function at this time. Patient does not report undesirable side effects from medications. - Time Spent With Patient Time Spent With Patient: 30 minutes, met with patient and behavioral health care manager - Pending Discharge Pending Discharge Within 24 Hours: No Pending Discharge Within 48 Hours: No ICD10 Worksheet Patient Problems: Problems Problem Status Onset Acute psychosis Acute Bipolar affective, manic, severe w/ psych Acute Sinus tachycardia Acute
--- NOTE | 2017-08-08 11:53 | SOAPPROG ---
SOAP Progress Note Assessment/Plan: Assessment: Bipolar I disorder, with harry and psychosis. Patient shows improvement from yesterday-- (see subjective/objective note). Plan: Review psychotropic medication treatment informed consent and recommendations. After reviewing options and risk and benefits, patient agrees to continue current medications with following changes: increase Seroquel HS to 600 mg. No other changes at this time. Plan is to continue to observe patient for response and side effects from medications, and ongoing monitoring and evaluation. Based on medication trials over the last two week, patient responds better to higher doses of Seroquel. Consider increasing Seroquel HS to 800 mg tomorrow. Next steps are for patient to meet with childcare aide to plan a safe discharge plan and establish outpatient services for ongoing treatment. Consider discharge Sunday of next week if patient is in stable condition, safe, and has a safe discharge plan. PSYCHOTROPIC MEDICATION TREATMENT INFORMED CONSENT and RECOMMENDATIONS: Review nature of condition, diagnosis, and prognosis. Review nature and purpose of psychotropic medication treatment. Review type of psychotropic medications being ordered. Review risk and benefits of psychotropic medication treatment. Review probable length of time patient will need to take medications. Review risk and benefits of not undergoing psychotropic medication treatment. Review alternative treatments to psychotropic medications. Review psychotropic medications contraindications, drug-drug interactions, side effects, and importance of reporting any side effects to a psychiatric provider or nurse during inpatient hospitalization, and upon discharge to patients psychiatric outpatient provider, primary care provider, or other health childcare aide. Review importance of asking a nurse, psychiatric provider, or primary care provider any questions or problems concerning the psychotropic medications. Verify patient understands the information that has been provided, and understands, accepts, and agrees to psychotropic medications. Review patients safety plan and importance of patient to report to staff while hospitalized if patient is ever a danger to self/others, or unable to care for self, and upon discharge, the importance for patient to contact [facility] or [facility], or go to the nearest emergency room, if patient is ever a danger to self/others, or unable to care for self. Recommend that upon discharge patient establish medication management treatment with a psychiatric provider, establishes routine therapy appointments, and follow-up with primary care provider. Verify patient understands and agrees to these recommendations. 08/08/17 11:52 Subjective: Following up with patient for evaluation of harry, psychosis, and safety. CC: Feeling better today...less irritablesorry about what happened yesterday. Patient reports improved mood today, and states slept well last night with 8 hours of sleep. Patient reports he agrees with plan to stop Risperidone and switch back to Seroquel dosing like last week as he reports he was responding better to higher doses of Seroquel and notice a difference in his mood when lowering Seroquel doses during switch to Risperidone. Patient reports he is tolerating medications with no report of side effects, expresses no psychiatric symptoms, denies SI/HI, denies A/V hallucinations. Patient states he plans to attend groups today and his appetite is good. Objective: Vital Signs Temp Pulse Resp BP Pulse Ox 36.4 C 103 H 16 130/85 H 94 08/07/17 08:00 08/07/17 08:00 08/07/17 08:00 08/07/17 08:00 08/07/17 08:00 Consulted with treatment team staff for update on patients progress in treatment. Nurses report patient no longer irritable and is not confrontational as he was yesterday morning. Nurses report patient expresses no psychiatric symptoms, denies SI/HI, A/V hallucinations, denies delusions, and slept 4 hours. Nursing reports patient is taking medications as prescribed, is tolerating medications, and reports no SEs Patients mood has improved considerably since yesterday morning; no longer irritable and no signs of agitation. Patient is more logical this morning. Patient continues to present with signs of harry including hypertalkative speech , continues to show no insight for his current condition, reasons for hospitalization and psychotropic medications. The patient is a well-nourished, well developed, male, looking stated chronological age. Attire is appropriate, dress is casual, and disheveled. Grooming status is inappropriate and disheveled and unshaven. Ambulation is independent. Gait is normal and coordinated. Posture is relaxed, and eye contact is appropriate. Motor activity is appropriate with no involuntary movements. Attitude is cooperative and friendly. Patient is attentive and relates well to this interviewer. Language production is spontaneous. Normal R /R/V. Patient reports mood as better and more relaxed and mood congruent with affect. Patients thought process is non-linear and illogical, with loose associations, and tangential thought. Patient does not report suicidal/ homicidal thoughts, ideas, or plans. Patient denies auditory, visual hallucinations. Patient denies delusions. Patient does not appear to be attending to internal stimuli. Patient is oriented to person, place, and time. Attention and concentration are poor. Insight is poor. Judgment is poor. Unable to appropriately assess cognitive function at this time. Patient does not report undesirable side effects from medications. - Time Spent With Patient Time Spent With Patient: 30 minutes, met with patient individually. - Pending Discharge Pending Discharge Within 24 Hours: No Pending Discharge Within 48 Hours: No ICD10 Worksheet Patient Problems: Problems Problem Status Onset Acute psychosis Acute Bipolar affective, manic, severe w/ psych Acute Sinus tachycardia Acute
[2017-08-08] MEDS: DIAZEPAM 5 MG TAB PO PRN (14:07)
[2017-08-08] MEDS ORDERED: QUEtiapine FUMARATE 100 MG TAB PO ONE (14:38)
[2017-08-09] MEDS: DIAZEPAM 5 MG TAB PO PRN (03:04)
[2017-08-09] MEDS ORDERED: QUEtiapine FUMARATE 200 MG TAB PO SCH (07:39)
[2017-08-09] MEDS: LITHIUM CARBONATE ER 300 MG TAB PO SCH ×2 (07:59→19:04)
[2017-08-09] MEDS: PROPRANOLOL HCL 10 MG TAB PO SCH ×2 (08:00→19:04)
[2017-08-09] MEDS: LIDOCAINE 4%/MENTHOL 1% PATCH TD SCH (08:00)
[2017-08-09] MEDS: GABAPENTIN 300 MG CAP PO SCH ×3 (08:00→19:05)
--- NOTE | 2017-08-09 08:04 | SOAPPROG ---
SOAP Progress Note Assessment/Plan: Assessment: Bipolar I disorder, with harry and psychosis. Patient shows improvement from yesterday-- (see subjective/objective note). Plan: Review psychotropic medication treatment informed consent and recommendations. After reviewing options and risk and benefits, patient agrees to continue current medications with following changes: increase Seroquel HS to 600 mg. No other changes at this time. Plan is to continue to observe patient for response and side effects from medications, and ongoing monitoring and evaluation. Based on medication trials over the last two week, patient responds better to higher doses of Seroquel. Consider increasing Seroquel HS to 800 mg tomorrow. Next steps are for patient to meet with care attendant to plan a safe discharge plan and establish outpatient services for ongoing treatment. Consider discharge Sunday of next week if patient is in stable condition, safe, and has a safe discharge plan. PSYCHOTROPIC MEDICATION TREATMENT INFORMED CONSENT and RECOMMENDATIONS: Review nature of condition, diagnosis, and prognosis. Review nature and purpose of psychotropic medication treatment. Review type of psychotropic medications being ordered. Review risk and benefits of psychotropic medication treatment. Review probable length of time patient will need to take medications. Review risk and benefits of not undergoing psychotropic medication treatment. Review alternative treatments to psychotropic medications. Review psychotropic medications contraindications, drug-drug interactions, side effects, and importance of reporting any side effects to a psychiatric provider or nurse during inpatient hospitalization, and upon discharge to patients psychiatric outpatient provider, primary care provider, or other health health care sanitary technician. Review importance of asking a nurse, psychiatric provider, or primary care provider any questions or problems concerning the psychotropic medications. Verify patient understands the information that has been provided, and understands, accepts, and agrees to psychotropic medications. Review patients safety plan and importance of patient to report to staff while hospitalized if patient is ever a danger to self/others, or unable to care for self, and upon discharge, the importance for patient to contact [facility] or [facility], or go to the nearest emergency room, if patient is ever a danger to self/others, or unable to care for self. Recommend that upon discharge patient establish medication management treatment with a psychiatric provider, establishes routine therapy appointments, and follow-up with primary care provider. Verify patient understands and agrees to these recommendations. 08/09/17 08:01 Subjective: Following up with patient for evaluation of harry, psychosis, and safety. CC: Please check my [place] records...I suffer from PTSD and benzodiazepines have been helpful in the pastXanax, Ativan, or Klonopinand would greatly appreciate if you would prescribe these for me now and when I discharge. Patient reports mood today as irritable, and states only slept 6 hours last night. Patient reports he agrees with current medications, and states the medications are at least one thing we are congruent on. Patient reports he is tolerating medications with no report of side effects, expresses no psychiatric symptoms, denies SI/HI, denies A/V hallucinations. Patient states he plans to attend groups today and his appetite is good. Objective: Vital Signs Temp Pulse Resp BP Pulse Ox 36.9 C 98 16 128/76 H 95 08/09/17 06:36 08/09/17 06:36 08/09/17 06:36 08/09/17 06:36 08/09/17 06:36 Consulted with treatment team staff for update on patients progress in treatment. Nurses report patient no longer irritable and is not confrontational as he was yesterday morning. Nurses report patient expresses no psychiatric symptoms, denies SI/HI, A/V hallucinations, denies delusions, and slept 4 hours. Nursing reports patient is taking medications as prescribed, is tolerating medications, and reports no SEs Patients mood continues to [id number]; mood was improved yesterday; however, today patient presents irritated and agitated. Patient presents with pressured speech, tangential, non-linear, and nonsensical. Patient continues to show no insight for his current condition including reasons for hospitalization and psychotropic medications; however, patient does agree with medications based on recommendation from this interviewer. SEs: slight bi-lat hand tremor resolved. Suspect this SE may have been higher dose of lithium (level 0.9) and resolved after 2 days. Patient reports no SEs. The patient is a well-nourished, well developed, male, looking stated chronological age. Attire is appropriate, dress is casual, and disheveled. Grooming status is inappropriate and disheveled. Ambulation is independent. Gait is normal and coordinated. Posture is tense, and eye contact is inappropriate and excessive, glaring. Motor activity is appropriate with no involuntary movements. Attitude is cooperative and irritable. Patient is disinterested in interview questions and does not relate well to this interviewer. Language production is spontaneous. Rate is fast, rhythm is pressured, and volume is high, tone is irritable. Patient reports mood as agitated and mood congruent with affect. Patients thought process is non- linear and illogical, with loose associations, and tangential thought. Patient does not report suicidal/homicidal thoughts, ideas, or plans. Patient denies auditory, visual hallucinations. Patient denies delusions. Patient does not appear to be attending to internal stimuli. Patient is oriented to person, place, and time; orientation is absent to situation. Attention and concentration are poor. Insight is poor. Judgment is poor. Unable to appropriately assess cognitive function at this time. Patient does not report undesirable side effects from medications. - Time Spent With Patient Time Spent With Patient: 30 minutes, met with patient individually. - Pending Discharge Pending Discharge Within 24 Hours: No Pending Discharge Within 48 Hours: No ICD10 Worksheet Patient Problems: Problems Problem Status Onset Acute psychosis Acute Bipolar affective, manic, severe w/ psych Acute Sinus tachycardia Acute
[2017-08-09] MEDS ORDERED: QUEtiapine FUMARATE 300 MG TAB PO SCH ×4 (09:00→21:00)
[2017-08-09] MEDS: LORazepam 1 MG TAB PO PRN (13:38)
--- NOTE | 2017-08-09 14:10 | ASMTBHDC ---
Notes Note: Notes: CC contacts Carri Champion at ; to follow up with Dr. Nolan and see if he is available to come on the unit later today or tomorrow to see client, etc. Carri noted, that Dr. Nolan does not work on Sunday' and will check with "him later today to see if he would come by to see Mitch." CC awaiting to hear back from Carri Champion and/or Karina Fermin regarding a doctor visit to evaluate client for admission. Date Signed: 08/09/2017 02:10 PM Electronically Signed By:Rhys Hernandez
[2017-08-09] MEDS: QUEtiapine FUMARATE 200 MG TAB PO SCH (19:05)
[2017-08-09] MEDS: PATCH REMOVAL 1 EA PATCH TD SCH (19:05)
[2017-08-10] MEDS: DIAZEPAM 5 MG TAB PO PRN (04:09)
[2017-08-10] MEDS: LORazepam 1 MG TAB PO PRN ×2 (06:41→16:32)
[2017-08-10] MEDS: LIDOCAINE 4%/MENTHOL 1% PATCH TD SCH (07:54)
[2017-08-10] MEDS: LITHIUM CARBONATE ER 300 MG TAB PO SCH ×2 (07:56→20:04)
[2017-08-10] MEDS: QUEtiapine FUMARATE 200 MG TAB PO SCH ×2 (07:56→20:04)
[2017-08-10] MEDS: PROPRANOLOL HCL 10 MG TAB PO SCH (07:56)
[2017-08-10] MEDS: GABAPENTIN 300 MG CAP PO SCH ×3 (07:57→20:03)
[2017-08-10] MEDS ORDERED: PROPRANOLOL HCL 10 MG TAB PO ONE (08:30)
[2017-08-10] MEDS ORDERED: GABAPENTIN 300 MG CAP PO ONE (08:30)
--- NOTE | 2017-08-10 08:40 | SOAPPROG ---
SOAP Progress Note Assessment/Plan: Assessment: Bipolar I disorder, with harry and psychosis. Patient shows some improvement from yesterday (see subjective/objective note). Notable improvement in mood with less irritability and agitation. Plan: Review psychotropic medication treatment informed consent and recommendations. After reviewing options and risk and benefits, patient agrees to continue current medications with following changes: increase Propranolol to 20 mg po BID to target tremor and aggression, increase Gabapentin to 600 mg po TID to target anxiety. No other changes at this time. Plan is to continue to observe patient for response and side effects from medications, and ongoing monitoring and evaluation. Based on medication trials over the last two weeks, patient responds better to higher doses of Seroquel. Will continue current Seroquel dosing over the weekend. Next steps are for patient to meet with care information associate to plan a safe discharge plan and establish outpatient services for ongoing treatment. Consider discharge Sunday of next week if patient is in stable condition, safe, and has a safe discharge plan. PSYCHOTROPIC MEDICATION TREATMENT INFORMED CONSENT and RECOMMENDATIONS: Review nature of condition, diagnosis, and prognosis. Review nature and purpose of psychotropic medication treatment. Review type of psychotropic medications being ordered. Review risk and benefits of psychotropic medication treatment. Review probable length of time patient will need to take medications. Review risk and benefits of not undergoing psychotropic medication treatment. Review alternative treatments to psychotropic medications. Review psychotropic medications contraindications, drug-drug interactions, side effects, and importance of reporting any side effects to a psychiatric provider or nurse during inpatient hospitalization, and upon discharge to patients psychiatric outpatient provider, primary care provider, or other health intensive care unit registered nurse. Review importance of asking a nurse, psychiatric provider, or primary care provider any questions or problems concerning the psychotropic medications. Verify patient understands the information that has been provided, and understands, accepts, and agrees to psychotropic medications. Review patients safety plan and importance of patient to report to staff while hospitalized if patient is ever a danger to self/others, or unable to care for self, and upon discharge, the importance for patient to contact [facility] or [facility], or go to the nearest emergency room, if patient is ever a danger to self/others, or unable to care for self. Recommend that upon discharge patient establish medication management treatment with a psychiatric provider, establishes routine therapy appointments, and follow-up with primary care provider. Verify patient understands and agrees to these recommendations. 08/10/17 08:46 Subjective: Following up with patient for evaluation of harry, psychosis, and safety. CC: Jadon, man, sorry for how things got started off this week, would like to make an amends. Patient reports mood today as doing better, and states slept better last night with 9 hours of sleep. Patient reports he agrees with current medications and agrees to increase in Gabapentin and Propranolol. Patient reports he is tolerating medications with no report of side effects, expresses no psychiatric symptoms, denies SI/HI, denies A/V hallucinations. Patient states he plans to attend groups today and his appetite is good. Objective: Vital Signs Temp Pulse Resp BP Pulse Ox 36.2 C 96 14 119/91 H 94 08/10/17 06:52 08/10/17 06:52 08/10/17 06:52 08/10/17 06:52 08/10/17 06:52 Consulted with treatment team staff for update on patients progress in treatment. Nurses report they have noticed an improvement in patients presentation, notably less irritable, agitated, and demanding. Nurses report patient expresses no psychiatric symptoms, denies SI/HI, A/V hallucinations, denies delusions, and slept 8 hours. Nursing reports patient is taking medications as prescribed, is tolerating medications, and reports no SEs Patient shows noticeable improvement today, less irritable and agitated. Patient continues to show no insight for his current condition including reasons for hospitalization and psychotropic medications; however, patient does agree with medications based on recommendation from this interviewer. SEs: slight bi-lat hand tremor. No other SEs noted or reported. The patient is a well-nourished, well developed, male, looking stated chronological age. Attire is appropriate, dress is casual, and disheveled. Grooming status is inappropriate and disheveled. Ambulation is independent. Gait is normal and coordinated. Posture is appropriate and relaxed, and eye contact is appropriate. Motor activity is appropriate with no involuntary movements. Attitude is cooperative and friendly. Patient is attentive and relates well to this interviewer. Language production is spontaneous. R/R/V normal. Patient reports mood as improved and mood congruent with affect. Patients thought process is non-linear and illogical, with loose associations, and tangential thought. Patient does not report suicidal/homicidal thoughts, ideas, or plans. Patient denies auditory, visual hallucinations. Patient denies delusions. Patient does not appear to be attending to internal stimuli. Patient is oriented to person, place, and time; orientation is absent to situation. Attention and concentration are poor. Insight is poor. Judgment is poor. Patient has no apparent dysfunction in recent or remote memory noted, and no evidence of gross cognitive dysfunction noted at any point during the interview. - Time Spent With Patient Time Spent With Patient: 30 minutes, met with patient individually. - Pending Discharge Pending Discharge Within 24 Hours: No Pending Discharge Within 48 Hours: No ICD10 Worksheet Patient Problems: Problems Problem Status Onset Acute psychosis Acute Bipolar affective, manic, severe w/ psych Acute Sinus tachycardia Acute
--- NOTE | 2017-08-10 11:12 | ASMTBHDC ---
Notes Note: Notes: CC called Carri Champion at to speak about having a doctor come over to evaluate for Karina Fermin. No answer, left detailed VM with all necessary return contact information, etc. Date Signed: 08/10/2017 11:11 AM Electronically Signed By:Rhys Hernandez
[2017-08-10] MEDS: IBUPROFEN 200 MG TAB PO PRN (16:23)
[2017-08-10] MEDS: PROPRANOLOL HCL 20 MG TAB PO SCH (20:04)
[2017-08-10] MEDS: PATCH REMOVAL 1 EA PATCH TD SCH (21:34)
[2017-08-11] MEDS: GABAPENTIN 300 MG CAP PO SCH ×3 (08:41→19:48)
[2017-08-11] MEDS: QUEtiapine FUMARATE 200 MG TAB PO SCH ×2 (08:41→19:49)
[2017-08-11] MEDS: PROPRANOLOL HCL 20 MG TAB PO SCH ×2 (08:42→19:48)
[2017-08-11] MEDS: LITHIUM CARBONATE ER 300 MG TAB PO SCH ×2 (08:42→19:48)
[2017-08-11] MEDS: LIDOCAINE 4%/MENTHOL 1% PATCH TD SCH (08:43)
--- NOTE | 2017-08-11 16:14 | SOAPPROG ---
SOAP Progress Note Assessment/Plan: Assessment: Bipolar I disorder, with harry and psychosis. Per Aiden Kwon's note 08/10/17: Following up with patient for evaluation of harry, psychosis, and safety. CC: Jadon, man, sorry for how things got started off this week, would like to make an amends. Patient reports mood today as doing better, and states slept better last night with 9 hours of sleep. Patient reports he agrees with current medications and agrees to increase in Gabapentin and Propranolol. Patient reports he is tolerating medications with no report of side effects, expresses no psychiatric symptoms, denies SI/HI, denies A/V hallucinations. Patient states he plans to attend groups today and his appetite is good. Plan: 08/11/17 16:11 1. Patient states has numerous physical complaints that he thinks are all SE's of [place]. He c/o blurred vision, bilateral tremor, difficulty reading, slurred speech, short-term memory loss. MD asked patient if he had mentioned any of these possible SE's earlier in week, he said, "no" they just happened. However, MD reminded patient he has been on [place] for more than a week. MD also noted that patient just had his Propranolol increased to 20mg BID to treat his tremor. MD observed patient throughout the day in order to assess some of these possible SE's. MD observed patient having regular conversation with peers before/after groups. He was also interacting appropriately in milieu. At no time while MD was observing did patient exhibit slurred speech, tremor, lethargy or problems reading the whiteboard during group therapy sessions. 2. Patient told MD that he doesn't want to take lithium b/c he doesn't think "I need it" and disagrees with the diagnosis of Bipolar Disorder. He claims diagnoses of PTSD, ADHD and anxiety are "more accurate" and insists he doesn't have sxs of harry or psychosis. 3. Patient insists that he "expects to be off lithium when I leave" hospital. He claims the plan was to "get me stable" on lithium. He thinks that since his lithium level was 0.9 on 08/08/17, he can "come off it now." Patient doesn't understand or refuses to accept that his mental illness will require he be treated with some form of mood stabilizer for the rest of his life. He thinks he will be able to return to taking Seroquel 800mg without any other meds after discharge. MD attempted to explain that medications are only beneficial for patient as long as he takes them. But patient says, "I don't need all these meds...I only need Ativan, Valium, Gabapentin and Seroquel." 4. Patient says he will "continue" to take the meds he is currently prescribed, but plans to "talk to Aiden" on Sunday about long-term tx with psychotropics. 5. Plan is to receive services through [facility] after discharge. Subjective: Met with patient, reviewed chart and d/w staff. Patient states has numerous physical complaints that he thinks are all SE's of [place]. He c/o blurred vision, bilateral tremor, difficulty reading, slurred speech, short-term memory loss. MD asked patient if he had mentioned any of these possible SE's earlier in week, he said, "no" they just happened. However, MD reminded patient he has been on [place] for more than a week. MD also noted that patient just had his Propranolol increased to 20mg BID to treat his tremor. MD observed patient throughout the day in order to assess some of these possible SE's. MD observed patient having regular conversation with peers before/after groups. He was also interacting appropriately in milieu. At no time while MD was observing did patient exhibit slurred speech, tremor, lethargy or problems reading the whiteboard during group therapy sessions. Patient told MD that he doesn't want to take lithium b/c he doesn't think "I need it" and disagrees with the diagnosis of Bipolar Disorder. He claims diagnoses of PTSD, ADHD and anxiety are "more accurate" and insists he doesn't have sxs of harry or psychosis. Patient insists that he "expects to be off lithium when I leave" hospital. He claims the plan was to "get me stable" on lithium. He thinks that since his lithium level was 0.9 on 08/08/17, he can "come off it now." Patient doesn't understand or refuses to accept that his mental illness will require he be treated with some form of mood stabilizer for the rest of his life. He thinks he will be able to return to taking Seroquel 800mg without any other meds after discharge. MD attempted to explain that medications are only beneficial for patient as long as he takes them. But patient says, "I don't need all these meds...I only need Ativan, Valium, Gabapentin and Seroquel." Patient says he will "continue" to take the meds he is currently prescribed, but plans to "talk to Aiden" on Sunday about long-term tx with psychotropics. Objective: Vital Signs Temp Pulse Resp BP Pulse Ox 36.3 C 90 16 132/88 H 94 08/11/17 07:00 08/11/17 07:00 08/11/17 07:00 08/11/17 07:00 08/11/17 07:00 MSE: Affect: Flat Mood: "OK" TP: Illogical TC: Denies any SI/HI, no hallucinations or paranoia Insight/Judgment: Poor a/e/b unwillingness to take meds long-term and lack fo insight into severity of mental illness (disputes the dx of bipolar and denies any harry sxs) - Time Spent With Patient Time Spent With Patient: 25" - Pending Discharge Pending Discharge Within 24 Hours: No Pending Discharge Within 48 Hours: No ICD10 Worksheet Patient Problems: Problems Problem Status Onset Acute psychosis Acute Bipolar affective, manic, severe w/ psych Acute Sinus tachycardia Acute
[2017-08-12] MEDS: PATCH REMOVAL 1 EA PATCH TD SCH ×3 (00:20→20:16)
[2017-08-12] MEDS: DIAZEPAM 5 MG TAB PO PRN (03:21)
[2017-08-12] MEDS: QUEtiapine FUMARATE 200 MG TAB PO SCH ×2 (09:04→19:09)
[2017-08-12] MEDS: PROPRANOLOL HCL 20 MG TAB PO SCH ×2 (09:04→19:09)
[2017-08-12] MEDS: GABAPENTIN 300 MG CAP PO SCH ×3 (09:06→20:15)
[2017-08-12] MEDS: IBUPROFEN 200 MG TAB PO PRN ×2 (09:21→19:14)
[2017-08-12] MEDS: LIDOCAINE 4%/MENTHOL 1% PATCH TD SCH (09:32)
[2017-08-12] MEDS: LITHIUM CARBONATE ER 300 MG TAB PO SCH ×2 (14:10→20:16)
--- NOTE | 2017-08-12 14:21 | SOAPPROG ---
SOAP Progress Note Assessment/Plan: Assessment: Bipolar I disorder, with harry and psychosis. Per Aiden Kwon's note 08/10/17: Following up with patient for evaluation of harry, psychosis, and safety. CC: Jadon, man, sorry for how things got started off this week, would like to make an amends. Patient reports mood today as doing better, and states slept better last night with 9 hours of sleep. Patient reports he agrees with current medications and agrees to increase in Gabapentin and Propranolol. Patient reports he is tolerating medications with no report of side effects, expresses no psychiatric symptoms, denies SI/HI, denies A/V hallucinations. Patient states he plans to attend groups today and his appetite is good. Plan: 08/11/17 16:11 1. Patient states has numerous physical complaints that he thinks are all SE's of [place]. He c/o blurred vision, bilateral tremor, difficulty reading, slurred speech, short-term memory loss. MD asked patient if he had mentioned any of these possible SE's earlier in week, he said, "no" they just happened. However, MD reminded patient he has been on [place] for more than a week. MD also noted that patient just had his Propranolol increased to 20mg BID to treat his tremor. MD observed patient throughout the day in order to assess some of these possible SE's. MD observed patient having regular conversation with peers before/after groups. He was also interacting appropriately in milieu. At no time while MD was observing did patient exhibit slurred speech, tremor, lethargy or problems reading the whiteboard during group therapy sessions. 2. Patient told MD that he doesn't want to take lithium b/c he doesn't think "I need it" and disagrees with the diagnosis of Bipolar Disorder. He claims diagnoses of PTSD, ADHD and anxiety are "more accurate" and insists he doesn't have sxs of harry or psychosis. 3. Patient insists that he "expects to be off lithium when I leave" hospital. He claims the plan was to "get me stable" on lithium. He thinks that since his lithium level was 0.9 on 08/08/17, he can "come off it now." Patient doesn't understand or refuses to accept that his mental illness will require he be treated with some form of mood stabilizer for the rest of his life. He thinks he will be able to return to taking Seroquel 800mg without any other meds after discharge. MD attempted to explain that medications are only beneficial for patient as long as he takes them. But patient says, "I don't need all these meds...I only need Ativan, Valium, Gabapentin and Seroquel." 4. Patient says he will "continue" to take the meds he is currently prescribed, but plans to "talk to Aiden" on Sunday about long-term tx with psychotropics. 5. Plan is to receive services through [facility] after discharge. 08/12/17 14:19 1. Patient refused AM dose of ltihium b/c he was still bothered by blurry vision , which was causing him to have "dyslexia." However, when MD visited with patient later, he denied SE's were bothering him and said they were "much better " today. 2. Patient slept 9 hrs last night. 3. When MD met with patient, he had no physical complaints and said he felt "great." This is different than how he presented to RN this AM. 4. [facility] Subjective: Met with patient, reviewed chart and d/w staff. Patient was standing at his sink getting ready to shave, the MHT was present. Patient said he felt "much better" today and denied that he was having any blurring vision, difficulty reading and denied any tremor. When holding the razor blade to shave, patient had no visible tremor. He still refused to take his lithium this AM d/t concerns about SE's. He denied any SI/HI and AH/VH. Objective: Vital Signs Temp Pulse Resp BP Pulse Ox 36.6 C 81 14 124/65 H 93 08/12/17 06:30 08/12/17 06:30 08/12/17 06:30 08/12/17 06:30 08/12/17 06:30 MSE: Affect: Euthymic Mood: "Great" TP: Perseverative, irrational TC: Denies any SI/HI, no AH/VH Insight/Judgment: Poor - Time Spent With Patient Time Spent With Patient: 15" - Pending Discharge Pending Discharge Within 24 Hours: No Pending Discharge Within 48 Hours: No ICD10 Worksheet Patient Problems: Problems Problem Status Onset Acute psychosis Acute Bipolar affective, manic, severe w/ psych Acute Sinus tachycardia Acute
[2017-08-12] MEDS: MAGNESIUM HYDROXIDE 30 ML UDCUP PO PRN (14:47)
--- NOTE | 2017-08-12 15:09 | ASMTBHDC ---
Notes Note: Notes: Patient has talked extensively with staff regarding his diagnosis. He states that he does not have a Bipolar Disorder and does not want to or need to take the medications recommended for Bipolar treatment. Patient states that he has anxiety and PTSD. Patient said that he is looking forward to going to [facility] when he is discharged. Patient is eating well, taking all of his medications except [place]. He is attending groups and slept 9 hours last night. Date Signed: 08/12/2017 03:09 PM Electronically Signed By:Kourtney Zelaya
[2017-08-13] MEDS: DIAZEPAM 5 MG TAB PO PRN (04:35)
[2017-08-13] MEDS: PROPRANOLOL HCL 20 MG TAB PO SCH ×3 (09:12→20:26)
[2017-08-13] MEDS: GABAPENTIN 300 MG CAP PO SCH ×3 (09:12→20:25)
[2017-08-13] MEDS: LIDOCAINE 4%/MENTHOL 1% PATCH TD SCH (09:12)
[2017-08-13] MEDS: QUEtiapine FUMARATE 200 MG TAB PO SCH (09:13)
[2017-08-13] MEDS: IBUPROFEN 200 MG TAB PO PRN ×2 (09:14→16:57)
[2017-08-13] MEDS: LITHIUM CARBONATE ER 300 MG TAB PO SCH (10:06)
[2017-08-13] MEDS ORDERED: QUEtiapine FUMARATE 200 MG TAB PO SCH ×2 (10:45→10:46)
--- NOTE | 2017-08-13 11:38 | SOAPPROG ---
SOAP Progress Note Assessment/Plan: Assessment: Bipolar I disorder, with harry and psychosis. Patient shows no improvement ( see subjective/objective note). Plan: Review psychotropic medication treatment informed consent and recommendations. After reviewing options and risk and benefits, patient agrees to continue current medications with following changes. DC lithium, decrease Seroquel AM to 300 mg due to daytime sedation and increase Seroquel HS to 900 mg, increase Gabapentin to 900 mg po TID for anxiety/agitation, and increase Propranolol to 20 mg po TID for elevated BP and agitation. No other changes at this time. Plan is to continue to observe patient for response and side effects from medications, and ongoing monitoring and evaluation. Patient placed on assault awareness and elopement precautions due to current presentation and threats to leave unit. Next steps are for patient to meet with women's health care nurse practitioner to plan a safe discharge plan and establish outpatient services for ongoing treatment. Consider discharge Sunday if patient is in stable condition, safe, and has a safe discharge plan. Patient to discharge to [facility]. PSYCHOTROPIC MEDICATION TREATMENT INFORMED CONSENT and RECOMMENDATIONS: Review nature of condition, diagnosis, and prognosis. Review nature and purpose of psychotropic medication treatment. Review type of psychotropic medications being ordered. Review risk and benefits of psychotropic medication treatment. Review probable length of time patient will need to take medications. Review risk and benefits of not undergoing psychotropic medication treatment. Review alternative treatments to psychotropic medications. Review psychotropic medications contraindications, drug-drug interactions, side effects, and importance of reporting any side effects to a psychiatric provider or nurse during inpatient hospitalization, and upon discharge to patients psychiatric outpatient provider, primary care provider, or other health medication care manager. Review importance of asking a nurse, psychiatric provider, or primary care provider any questions or problems concerning the psychotropic medications. Verify patient understands the information that has been provided, and understands, accepts, and agrees to psychotropic medications. Review patients safety plan and importance of patient to report to staff while hospitalized if patient is ever a danger to self/others, or unable to care for self, and upon discharge, the importance for patient to contact [facility] or [facility], or go to the nearest emergency room, if patient is ever a danger to self/others, or unable to care for self. Recommend that upon discharge patient establish medication management treatment with a psychiatric provider, establishes routine therapy appointments, and follow-up with primary care provider. Verify patient understands and agrees to these recommendations. 08/13/17 11:37 Subjective: Following up with patient for evaluation of harry, psychosis, and safety. CC: Dont need to be here, and I am not taking lithium anymore. I am going to walk out of here today. Patient expresses on psychiatric symptoms, denies SI/HI, and states he is tolerating current medications with no report of side effects. Patient requests to stop lithium. Objective: Vital Signs Temp Pulse Resp BP Pulse Ox 36.6 C 98 14 135/89 H 93 08/12/17 06:30 08/12/17 22:26 08/12/17 22:26 08/12/17 22:26 08/12/17 06:30 Consulted with treatment team staff for update on patients progress in treatment. Nurses report patient is confrontational and irritable, refused lithium on Sunday and this AM. Nurses report patient denies SI/HI, A/V hallucinations, denies delusions, and slept 8.5 hours, is tolerating current medications with no report of side effects. The patient is a well-nourished, well developed, male, looking stated chronological age. Attire is appropriate, dress is casual, and disheveled. Grooming status is inappropriate and disheveled and unshaven. Ambulation is independent. Gait is normal and coordinated. Posture is tense, leaning toward this interviewer in a threatening manner. Eye contact is inappropriate, glaring , and excessive. Motor activity is appropriate. Attitude is uncooperative, irritable, and angry. Patient appears disinterested in interview, and does not relate well to this interviewer or critical care technician that is present. Language production is spontaneous. Rate is pressured, and rapid. Latency of response is shortened, with irritable and angry tone, and high, inappropriate volume, and amount is hypertalkative and unable to interrupt at anytime. Articulation is fast with no evidencing of speech impairments. Patient reports mood as angry with congruent with affect. Patients thought process is non-linear and illogical, with loose associations, and tangential thought. Patient does not report suicidal/homicidal thoughts, ideas, or plans. Patient denies auditory, visual hallucinations. Patient denies delusions. Patient does not appear to be attending to internal stimuli. Patient is oriented to person, place, and place. Attention and concentration are poor. Insight is poor. Judgment is poor. Unable to appropriately assess cognitive function at this time. Patient does not report undesirable side effects from current medications. - Time Spent With Patient Time Spent With Patient: 30 minutes, met with patient individually. - Pending Discharge Pending Discharge Within 24 Hours: No Pending Discharge Within 48 Hours: No ICD10 Worksheet Patient Problems: Problems Problem Status Onset Acute psychosis Acute Bipolar affective, manic, severe w/ psych Acute Sinus tachycardia Acute
[2017-08-13] MEDS: LORazepam 1 MG TAB PO PRN ×2 (14:24→16:56)
[2017-08-13] MEDS: QUEtiapine FUMARATE 300 MG TAB PO SCH (20:26)
[2017-08-13] MEDS: PATCH REMOVAL 1 EA PATCH TD SCH (22:17)
[2017-08-14] MEDS: LORazepam 1 MG TAB PO PRN (04:18)
[2017-08-14] MEDS: IBUPROFEN 200 MG TAB PO PRN ×2 (04:22→16:19)
[2017-08-14] MEDS: MAGNESIUM HYDROXIDE 30 ML UDCUP PO PRN (04:27)
[2017-08-14] MEDS: GABAPENTIN 300 MG CAP PO SCH ×3 (09:05→19:02)
[2017-08-14] MEDS: PROPRANOLOL HCL 20 MG TAB PO SCH ×3 (09:05→19:02)
[2017-08-14] MEDS: QUEtiapine FUMARATE 300 MG TAB PO SCH ×2 (09:09→19:01)
[2017-08-14] MEDS: LIDOCAINE 4%/MENTHOL 1% PATCH TD SCH (10:26)
[2017-08-14] MEDS ORDERED: LORazepam 1 MG TAB PO PRN (11:15)
--- NOTE | 2017-08-14 11:30 | SOAPPROG ---
SOAP Progress Note Assessment/Plan: Assessment: Bipolar I disorder, with harry and psychosis. Patient shows some improvement from yesterday (see subjective/objective note). Notable improvement in mood with less irritability and agitation. Plan: Review psychotropic medication treatment informed consent and recommendations. After reviewing options and risk and benefits, patient agrees to continue current medications with following changes: stop Ativan 2 mg po Q4HRS PRN due to daytime sedation. No other changes at this time. Plan is to continue to observe patient for response and side effects from medications, and ongoing monitoring and evaluation. Based on medication trials over the last two weeks, patient responds better to higher doses of Seroquel. Will continue current Seroquel dosing over the weekend. Next steps are for patient to meet with post acute care nurse practitioner to plan a safe discharge plan and establish outpatient services for ongoing treatment. Consider discharge Sunday of next week if patient is in stable condition, safe, and has a safe discharge plan. PSYCHOTROPIC MEDICATION TREATMENT INFORMED CONSENT and RECOMMENDATIONS: Review nature of condition, diagnosis, and prognosis. Review nature and purpose of psychotropic medication treatment. Review type of psychotropic medications being ordered. Review risk and benefits of psychotropic medication treatment. Review probable length of time patient will need to take medications. Review risk and benefits of not undergoing psychotropic medication treatment. Review alternative treatments to psychotropic medications. Review psychotropic medications contraindications, drug-drug interactions, side effects, and importance of reporting any side effects to a psychiatric provider or nurse during inpatient hospitalization, and upon discharge to patients psychiatric outpatient provider, primary care provider, or other health home care giver. Review importance of asking a nurse, psychiatric provider, or primary care provider any questions or problems concerning the psychotropic medications. Verify patient understands the information that has been provided, and understands, accepts, and agrees to psychotropic medications. Review patients safety plan and importance of patient to report to staff while hospitalized if patient is ever a danger to self/others, or unable to care for self, and upon discharge, the importance for patient to contact [facility] or [facility], or go to the nearest emergency room, if patient is ever a danger to self/others, or unable to care for self. Recommend that upon discharge patient establish medication management treatment with a psychiatric provider, establishes routine therapy appointments, and follow-up with primary care provider. Verify patient understands and agrees to these recommendations. 08/14/17 11:44 Subjective: Following up with patient for evaluation of harry, psychosis, and safety. CC: "I like walking around with my rg on hard. Morphine and thorazine would be beneficial." Patient asks whether "vitamin V" would be beneficial. Patient states "vitamin V" means Viagra, and patient requests a prescription of Viagra and reports he would like to this prescription when he discharges. Objective: Vital Signs Temp Pulse Resp BP Pulse Ox 36.3 C 90 16 119/75 94 08/14/17 04:38 08/14/17 04:38 08/14/17 04:38 08/14/17 04:38 08/14/17 04:38 Consulted with treatment team staff for update on patients progress in treatment. Nurses report is over-sedated, yet continues to ask for PRN medications for agitation. Nurses report patient expresses no psychiatric symptoms, denies SI/HI, A/V hallucinations, denies delusions, and slept 8 hours. Nursing reports patient is taking medications as prescribed, is tolerating medications, and reports no SEs. Patient shows noticeable improvement today, less irritable and agitated. Patient continues to show no insight for his current condition including reasons for hospitalization and psychotropic medications; however, patient does agrees to continue current medications. The patient is a well-nourished, well developed, male, looking stated chronological age. Attire is appropriate, dress is casual, and disheveled. Grooming status is inappropriate and disheveled. Ambulation is independent. Gait is normal and coordinated. Posture is appropriate and relaxed, and eye contact is appropriate. Motor activity is slowed and underactive. Attitude is cooperative and friendly. Patient is attentive and relates well to this interviewer. Language production is spontaneous. Rate is slow. R/V normal. Patient reports mood as going good and mood incongruent with flat and constricted affect. Patients thought process is non-linear and illogical, with loose associations, and tangential thought. Patient does not report suicidal/ homicidal thoughts, ideas, or plans. Patient denies auditory, visual hallucinations. Patient denies delusions. Patient does not appear to be attending to internal stimuli. Patient is oriented to person, place, and time; orientation is absent to situation. Attention and concentration are poor. Insight is poor. Judgment is poor. COGNITIVE FUNCTION: Retention / Recall: repeat back these numbers: 5 1 5 0 3 / 9 6 8 3 6 4 2 - able to complete without difficulty. Abstractions: What does the statement Rolling stones gather no tripathi mean? "Where I hang my hat is my home." How is an airplane similar to a bird? "It flies, it knows the past, future, and the present with a birds eye view." Memory: Remember these 3 items, ask to repeat back: Pin, Car, Duck. Judgement: If you were in a restaurant and heard a fire alarm go off, what would you do? "remain calm, look for smoke, look for nearest exit, and assist others to the exit" If you found a stamped, sealed envelope on the side walk, what would you do with it? "bring to nearest post office" Orientation: x3 Situation: "I am here voluntarily to seek treatment and to experiment pharmacologically with my own mind as means neurotheological studies , and betterment of synaptic development and free association and to examine the neurolinguistics programming." Memory: Repeat back 3 items asked to remember: "pin, tire, duck" - able to recall 2/3 items after 3 minutes Calculations: able to count backwards by 7 from 100 without difficulty Knowledge: Current president of the [place]? Before that? "Edward Vang and Sharif Carbajal" - Time Spent With Patient Time Spent With Patient: 30 minutes, met with patient individually. - Pending Discharge Pending Discharge Within 24 Hours: No Pending Discharge Within 48 Hours: No ICD10 Worksheet Patient Problems: Problems Problem Status Onset Acute psychosis Acute Bipolar affective, manic, severe w/ psych Acute Sinus tachycardia Acute
[2017-08-14] MEDS ORDERED: DIAZEPAM 5 MG TAB PO PRN ×2 (14:15→15:00)
--- NOTE | 2017-08-14 16:13 | ASMTBHDC ---
Notes Note: Notes: CC called [facility] and spoke with Carri Champion and Dr. Bloom. Dr. Bloom plans to come to the unit later this afternoon to re-assess the patient and speak with Aiden Kwon NP. Date Signed: 08/14/2017 04:13 PM Electronically Signed By:Zoe Black
[2017-08-14] MEDS: PATCH REMOVAL 1 EA PATCH TD SCH (20:59)
--- NOTE | 2017-08-15 08:03 | SOAPPROG ---
SOAP Progress Note Assessment/Plan: Assessment: Bipolar I disorder, with harry and psychosis. Patient shows some improvement from yesterday (see subjective/objective note). Notable improvement in mood with less irritability and agitation. Plan: Review psychotropic medication treatment informed consent and recommendations. After reviewing treatment options, risk and benefits of treatment, patient agrees to continue current medications. No medication changes at this time as more time is needed to determine ongoing tolerability and efficacy. Plan is to continue to observe patient for response and side effects from medications, and ongoing monitoring and evaluation. Next steps are for patient to meet with manager intensive care unit to plan a safe discharge plan and establish outpatient services for ongoing treatment. Consider discharge Sunday if patient is in stable condition, safe, and has a safe discharge plan. Patient to discharge to [facility]. PSYCHOTROPIC MEDICATION TREATMENT INFORMED CONSENT and RECOMMENDATIONS: Review nature of condition, diagnosis, and prognosis. Review nature and purpose of psychotropic medication treatment. Review type of psychotropic medications being ordered. Review risk and benefits of psychotropic medication treatment. Review probable length of time patient will need to take medications. Review risk and benefits of not undergoing psychotropic medication treatment. Review alternative treatments to psychotropic medications. Review psychotropic medications contraindications, drug-drug interactions, side effects, and importance of reporting any side effects to a psychiatric provider or nurse during inpatient hospitalization, and upon discharge to patients psychiatric outpatient provider, primary care provider, or other health reservoir caretaker. Review importance of asking a nurse, psychiatric provider, or primary care provider any questions or problems concerning the psychotropic medications. Verify patient understands the information that has been provided, and understands, accepts, and agrees to psychotropic medications. Review patients safety plan and importance of patient to report to staff while hospitalized if patient is ever a danger to self/others, or unable to care for self, and upon discharge, the importance for patient to contact [facility] or [facility], or go to the nearest emergency room, if patient is ever a danger to self/others, or unable to care for self. Recommend that upon discharge patient establish medication management treatment with a psychiatric provider, establishes routine therapy appointments, and follow-up with primary care provider. Verify patient understands and agrees to these recommendations. 08/15/17 08:04 Subjective: Following up with patient for evaluation of harry, psychosis, and safety. CC: "I met with Dr. Bloom last night, and it sounds like [facility] will be a good fit for me; look forward to going there. Maybe today or tomorrow." Patient reports less sedation this morning, and reports taking medications as prescribed, tolerating medications with no report of side effects. Patient denies any psychiatric symptoms, denies SI/HI. Objective: Vital Signs Temp Pulse Resp BP Pulse Ox 36.3 C 92 12 122/82 H 90 L 08/14/17 04:38 08/14/17 15:44 08/14/17 08:00 08/14/17 15:44 08/14/17 08:00 Consulted with treatment team staff for update on patients progress in treatment. Nurses report patient is less sedated with current medications and with discontinuation of Ativan. They report patient is less irritable and more logical this morning. Nurses describes patient being seen last evening by Dr. Bloom, and report Dr. Bloom stated the patient needs more work. Nurses report patient expresses no psychiatric symptoms, denies SI/HI, A/V hallucinations, denies delusions, and slept 8 hours. Nursing reports patient is taking medications as prescribed, is tolerating medications, and reports no SEs. Nurses report patient continues to ask for PRN medications and appears to be drug seeking, asking for morphine, Dilaudid, and benzodiazepines. Patient shows noticeable improvement today, less irritable, agitated, and more logical and linear thought. Patient continues to show no insight for his current condition including reasons for hospitalization and psychotropic medications; however, patient does agree to continue current medications and agrees to discharge to [facility] when stable. The patient is a well-nourished, well developed, male, looking stated chronological age. Attire is appropriate, dress is casual, and disheveled. Grooming status is inappropriate and disheveled. Ambulation is independent. Gait is normal and coordinated. Posture is appropriate and relaxed, and eye contact is appropriate. Motor activity is slowed and underactive. Attitude is cooperative and friendly. Patient is attentive and relates well to this interviewer. Language production is spontaneous. Rate is slow. R/V normal. Patient reports mood as going good and mood incongruent with flat and constricted affect. Patients thought process is non-linear and illogical, with loose associations, and tangential thought. Patient does not report suicidal/ homicidal thoughts, ideas, or plans. Patient denies auditory, visual hallucinations. Patient denies delusions. Patient does not appear to be attending to internal stimuli. Patient is oriented to person, place, and time; orientation is absent to situation. Attention and concentration are poor. Insight is poor. Judgment is poor. Cognitive assessment completed during yesterdays AM rounds. No change today. - Time Spent With Patient Time Spent With Patient: 30 minutes, met with patient individually. - Pending Discharge Pending Discharge Within 24 Hours: No Pending Discharge Within 48 Hours: No ICD10 Worksheet Patient Problems: Problems Problem Status Onset Acute psychosis Acute Bipolar affective, manic, severe w/ psych Acute Sinus tachycardia Acute
[2017-08-15] MEDS: PROPRANOLOL HCL 20 MG TAB PO SCH ×3 (09:13→21:12)
[2017-08-15] MEDS: GABAPENTIN 300 MG CAP PO SCH ×3 (09:13→21:11)
[2017-08-15] MEDS: LIDOCAINE 4%/MENTHOL 1% PATCH TD SCH (09:14)
[2017-08-15] MEDS: QUEtiapine FUMARATE 300 MG TAB PO SCH ×2 (09:14→21:11)
[2017-08-15] MEDS ORDERED: QUEtiapine FUMARATE 200 MG TAB PO SCH (14:52)
[2017-08-15] MEDS: DIAZEPAM 5 MG TAB PO PRN (18:13)
[2017-08-15] MEDS: PATCH REMOVAL 1 EA PATCH TD SCH (21:12)
[2017-08-16] MEDS: DIAZEPAM 5 MG TAB PO PRN (05:13)
[2017-08-16] MEDS: IBUPROFEN 200 MG TAB PO PRN (05:13)
[2017-08-16] MEDS: PROPRANOLOL HCL 20 MG TAB PO SCH ×3 (08:59→21:22)
[2017-08-16] MEDS: GABAPENTIN 300 MG CAP PO SCH ×3 (09:00→21:22)
[2017-08-16] MEDS: LIDOCAINE 4%/MENTHOL 1% PATCH TD SCH (09:01)
--- NOTE | 2017-08-16 14:43 | ASMTBHDC ---
Notes Note: Notes: CC was able to sent referral to [facility] for follow up out-patient care. [place] team noted, that client will most likely discharge on SundayAugust 20, etc. Client presents as manipulative towards others and staff. Resources list in client's discharge checklist include: Follow-up with: [facility] [address] [facility] Intake Appt: SundayAugust 20 (08/20/17) at 8:30am with Deep[facility] at [facility] Other referrals: [facility] [address] [place] [address] Appt: [facility] - [address] [address] Date Signed: 08/16/2017 02:43 PM Electronically Signed By:Rhys Hernandez
[2017-08-16] MEDS ORDERED: DIAZEPAM 2 MG TAB PO PRN (15:45)
--- NOTE | 2017-08-16 16:17 | SOAPPROG ---
SOAP Progress Note Assessment/Plan: Assessment: Bipolar I disorder, with harry and psychosis. Patient continues to show improvement (see subjective/objective note). Plan: Review psychotropic medication treatment informed consent and recommendations. After reviewing treatment options, risk and benefits of treatment, patient agrees to continue current medications with following changes: lower Seroquel 100 mg po QAM and Valium 2 mg po QD PRN. No other medication changes at this time as more time is needed to determine ongoing tolerability and efficacy. Goal is to discharge patient on a lower dose of Seroquel for shelter maintenance of bipolar and psychosis. Target dose is 800 mg po QHS. Plan is to continue Gabapentin and Propranolol at current doses. Plan is to continue to observe patient for response and side effects from medications, and ongoing monitoring and evaluation. Next steps are for patient to meet with primary care provider to plan a safe discharge plan and establish outpatient services for ongoing treatment. Consider Sunday if patient is in stable condition, safe, and has a safe discharge plan. PSYCHOTROPIC MEDICATION TREATMENT INFORMED CONSENT and RECOMMENDATIONS: Review nature of condition, diagnosis, and prognosis. Review nature and purpose of psychotropic medication treatment. Review type of psychotropic medications being ordered. Review risk and benefits of psychotropic medication treatment. Review probable length of time patient will need to take medications. Review risk and benefits of not undergoing psychotropic medication treatment. Review alternative treatments to psychotropic medications. Review psychotropic medications contraindications, drug-drug interactions, side effects, and importance of reporting any side effects to a psychiatric provider or nurse during inpatient hospitalization, and upon discharge to patients psychiatric outpatient provider, primary care provider, or other health child day care provider. Review importance of asking a nurse, psychiatric provider, or primary care provider any questions or problems concerning the psychotropic medications. Verify patient understands the information that has been provided, and understands, accepts, and agrees to psychotropic medications. Review patients safety plan and importance of patient to report to staff while hospitalized if patient is ever a danger to self/others, or unable to care for self, and upon discharge, the importance for patient to contact [facility] or [facility], or go to the nearest emergency room, if patient is ever a danger to self/others, or unable to care for self. Recommend that upon discharge patient establish medication management treatment with a psychiatric provider, establishes routine therapy appointments, and follow-up with primary care provider. Verify patient understands and agrees to these recommendations. 08/16/17 16:15 Subjective: Following up with patient for evaluation of harry, psychosis, and safety. When asked about plans for discharge patient states, I plan to connect with my friends in [place] and would like to get established with outpatient services as will likely remain in the [place] area after discharging. Patient reports less sedation during the day and agrees to continue taper of Seroquel with target dose of Seroquel 800 mg po QHS at time of discharge. Patient states he has been engaging more, attending groups throughout the day, and setting goals for when after he discharges. Patient reports he would like to remain [place] as he has three children that live in [place], [place] and he wants to be a part of their lives. Patient states he also has friends and family in the area. Patient states he also plans to follow-up with [facility] after he discharges as a potential ongoing treatment option. Objective: Vital Signs Temp Pulse Resp BP Pulse Ox 36.3 C 87 14 109/71 94 08/16/17 05:56 08/16/17 05:56 08/16/17 05:56 08/16/17 05:56 08/16/17 05:56 Consulted with treatment team staff for update on patients progress in treatment. Nurses report patient is less sedated during the day with continued taper of AM Seroquel dose. They report patient is no longer irritable, more linear and logical thinking, and is engaged in this treatment. Nurses report patient is no longer intrusive (e.g., no longer at the nurses station numerous times a day asking for PRN medications). Staff reports patient is no longer presenting with drug seeking behavior. Nurses report patient expresses no psychiatric symptoms, denies SI/HI, A/V hallucinations, denies delusions, and slept 8 hours. Nursing reports patient is taking medications as prescribed, is tolerating medications, and reports no SEs. Patient shows noticeable improvement today, less irritable, agitated, and more logical and linear thought. Patient shows more insight into his condition and agrees to continue medications after discharging. Patient is appropriately attending to all ADLs, shaved yesterday, is showering daily, and eating all meals. Patient attends groups and is appropriate with staff and other patients. Goal directed thought process as plans for upcoming discharge. coordinator volunteer services reports patient has intake appointment with [facility] on Sunday at 0830. The patient is a well-nourished, well developed, male, looking stated chronological age. Attire is appropriate, dress is casual, and disheveled. Grooming status is appropriate and recently shaved. Ambulation is independent. Gait is normal and coordinated. Posture is appropriate and relaxed, and eye contact is appropriate. Motor activity appropriate. Attitude is cooperative and friendly. Patient is attentive and relates well to this interviewer. Language production is spontaneous. R/R/V normal. Patient reports mood as okay and mood congruent with affect. Patients thought process is linear and logical, with no loose associations, and less tangential thought. Patient does not report suicidal/homicidal thoughts, ideas, or plans. Patient denies auditory, visual hallucinations. Patient denies delusions. Patient does not appear to be attending to internal stimuli. Patient is oriented to person, place, and time; orientation is partial to situation. Attention and concentration are fair. Insight is fair. Judgment is fair. No gross cognitive dysfunction noted. - Time Spent With Patient Time Spent With Patient: 30 minutes, met with patient individually. - Pending Discharge Pending Discharge Within 24 Hours: No Pending Discharge Within 48 Hours: No ICD10 Worksheet Patient Problems: Problems Problem Status Onset Acute psychosis Acute Bipolar affective, manic, severe w/ psych Acute Sinus tachycardia Acute
[2017-08-16] MEDS: QUEtiapine FUMARATE 300 MG TAB PO SCH (21:22)
[2017-08-16] MEDS: PATCH REMOVAL 1 EA PATCH TD SCH (21:23)
[2017-08-17] MEDS: LIDOCAINE 4%/MENTHOL 1% PATCH TD SCH (08:24)
[2017-08-17] MEDS: GABAPENTIN 300 MG CAP PO SCH ×3 (08:25→21:30)
[2017-08-17] MEDS: PROPRANOLOL HCL 20 MG TAB PO SCH ×3 (08:25→21:31)
[2017-08-17] MEDS ORDERED: QUEtiapine FUMARATE 100 MG TAB PO SCH (09:00)
[2017-08-17] MEDS ORDERED: DIAZEPAM 2 MG TAB PO PRN (12:07)
--- NOTE | 2017-08-17 12:11 | SOAPPROG ---
SOAP Progress Note Assessment/Plan: Assessment: Bipolar I disorder, with harry and psychosis. Patient continues to show improvement (see subjective/objective note). Antisocial Antisocial personality disorder. After observing patient for several weeks and reviewing past records, patient meets this diagnosis criteria including failure to conform to social norms (unlawful behaviors, hx arrests, incarceration), deceitfulness, impulsivity, irritability and aggressiveness, reckless disregard for safety of self or others, and consistent irresponsibility (repeated failures to sustain consistent work behavior or honor financial obligations). Plan: Review psychotropic medication treatment informed consent and recommendations. After reviewing treatment options, risk and benefits of treatment, patient agrees to continue current medications with following changes: discontinue Seroquel 100 mg QAM and Valium 2 mg po QD PRN. No other medication changes at this time as more time is needed to determine ongoing tolerability and efficacy. Goal is to discharge patient on a lower dose of Seroquel for residential maintenance of bipolar and psychosis. Target dose is 800 mg po QHS. Plan is to continue Gabapentin and Propranolol at current doses. Plan is to continue to observe patient for response and side effects from medications, and ongoing monitoring and evaluation. Next steps are for patient to meet with director of patient care to plan a safe discharge plan and establish outpatient services for ongoing treatment. Consider Sunday if patient is in stable condition, safe , and has a safe discharge plan. PSYCHOTROPIC MEDICATION TREATMENT INFORMED CONSENT and RECOMMENDATIONS: Review nature of condition, diagnosis, and prognosis. Review nature and purpose of psychotropic medication treatment. Review type of psychotropic medications being ordered. Review risk and benefits of psychotropic medication treatment. Review probable length of time patient will need to take medications. Review risk and benefits of not undergoing psychotropic medication treatment. Review alternative treatments to psychotropic medications. Review psychotropic medications contraindications, drug-drug interactions, side effects, and importance of reporting any side effects to a psychiatric provider or nurse during inpatient hospitalization, and upon discharge to patients psychiatric outpatient provider, primary care provider, or other health manager respiratory care. Review importance of asking a nurse, psychiatric provider, or primary care provider any questions or problems concerning the psychotropic medications. Verify patient understands the information that has been provided, and understands, accepts, and agrees to psychotropic medications. Review patients safety plan and importance of patient to report to staff while hospitalized if patient is ever a danger to self/others, or unable to care for self, and upon discharge, the importance for patient to contact [facility] or 1, or go to the nearest emergency room, if patient is ever a danger to self/others, or unable to care for self. Recommend that upon discharge patient establish medication management treatment with a psychiatric provider, establishes routine therapy appointments, and follow-up with primary care provider. Verify patient understands and agrees to these recommendations. 08/17/17 12:11 Subjective: Following up with patient for evaluation of harry, psychosis, and safety. Patient reports he has improved considerably since his admission and reports feeling close to stable and looking forward to discharging on Sunday morning. Patient reports he is close to his baseline and reports he has been attending to ADLs without difficulty. Patient reports he is attending groups, taking medications as prescribed, with no report of side effects. Patient agrees to continue medications with plan to taper off Valium and lower Seroquel to 800 mg po QHS prior to discharge for ongoing maintenance treatment. Objective: Vital Signs Temp Pulse Resp BP Pulse Ox 36.9 C 95 14 139/85 H 94 08/17/17 05:22 08/17/17 05:22 08/17/17 05:22 08/17/17 05:22 08/17/17 05:22 Consulted with treatment team staff for update on patients progress in treatment. Nurses report patient is less sedated during the day with continued taper of AM Seroquel dose. They report patient is no longer irritable, more linear and logical thinking, and is engaged in this treatment. Nurses report patient is no longer intrusive (e.g., no longer at the nurses station numerous times a day asking for PRN medications). Staff reports patient is no longer presenting with drug seeking behavior. Nurses report patient expresses no psychiatric symptoms, denies SI/HI, A/V hallucinations, denies delusions, and slept 8 hours. Nursing reports patient is taking medications as prescribed, is tolerating medications, and reports no SEs. Patient continues to show improvement, less irritable, agitated, and more logical and linear thought. Patient shows more insight into his condition and agrees to continue medications after discharging. Patient is appropriately attending to all ADLs, shaved Sunday, is showering daily, and eating all meals. Patient attends groups and is appropriate with staff and other patients. Goal directed thought process as plans for upcoming discharge. net coordinator reports patient has intake appointment with [facility] on Sunday at 0830. The patient is a well-nourished, well developed, male, looking stated chronological age. Attire is appropriate, dress is casual, and disheveled. Grooming status is appropriate and recently shaved. Ambulation is independent. Gait is normal and coordinated. Posture is appropriate and relaxed, and eye contact is appropriate. Motor activity appropriate. Attitude is cooperative and friendly. Patient is attentive and relates well to this interviewer. Language production is spontaneous. R/R/V normal. Patient reports mood as "okay" and mood congruent with affect. Patients thought process is linear and logical, with no loose associations, and less tangential thought. Patient does not report suicidal/homicidal thoughts, ideas, or plans. Patient denies auditory, visual hallucinations. Patient denies delusions. Patient does not appear to be attending to internal stimuli. Patient is oriented to person, place, and time; orientation is partial to situation. Attention and concentration are fair. Insight is fair. Judgment is fair. No gross cognitive dysfunction noted. - Time Spent With Patient Time Spent With Patient: 20 minutes, met with patient individually. - Pending Discharge Pending Discharge Within 24 Hours: No Pending Discharge Within 48 Hours: No ICD10 Worksheet Patient Problems: Problems Problem Status Onset Acute psychosis Acute Bipolar affective, manic, severe w/ psych Acute Sinus tachycardia Acute
[2017-08-17] MEDS: QUEtiapine FUMARATE 300 MG TAB PO SCH (21:31)
[2017-08-17] MEDS: PATCH REMOVAL 1 EA PATCH TD SCH (21:34)
[2017-08-18] MEDS: GABAPENTIN 300 MG CAP PO SCH ×3 (08:47→21:28)
[2017-08-18] MEDS: PROPRANOLOL HCL 20 MG TAB PO SCH ×3 (08:47→21:29)
[2017-08-18] MEDS: LIDOCAINE 4%/MENTHOL 1% PATCH TD SCH (08:47)
--- NOTE | 2017-08-18 13:47 | ASMTBHDC ---
Notes Note: Notes: Pt. reports feeling "good". Pt. stated he "slept long and hard and deep". Pt. stated he likes his medications, adding the Gabapentin is "allowing me to workout". Pt. stated he is "coping with it well", referring to being in the hospital. Pt. stated he only stays in groups if the are beneficial to him. Pt. stated he was accepted to [facility] and plans to discharge to [facility]. Pt. stated his father has paid for 6 months with [facility], but pt. stated he will only need one month there before moving on. Pt. denied SI, HI, AVH and paranoia. Pt. slept 6.75 hours and is mediation compliant. Date Signed: 08/18/2017 01:46 PM Electronically Signed By:Mary Valdes
--- NOTE | 2017-08-18 15:39 | SOAPPROG ---
SOAP Progress Note Assessment/Plan: Assessment: Bipolar I disorder, with harry and psychosis. Per Aiden Kwon's note: Bipolar I disorder, with harry and psychosis. Patient continues to show improvement (see subjective/objective note). Antisocial Antisocial personality disorder. After observing patient for several weeks and reviewing past records, patient meets this diagnosis criteria including failure to conform to social norms (unlawful behaviors, hx arrests, incarceration), deceitfulness, impulsivity, irritability and aggressiveness, reckless disregard for safety of self or others, and consistent irresponsibility (repeated failures to sustain consistent work behavior or honor financial obligations). 08/18/17 15:34 1. Patient says he wants to go to [facility]. When MD asks what his backup plan is, patient says he doesn't have one. 2. Patient has f/u appts at [facility] on Sunday, 08/20. 3. Patient still has limited insight into the nature/severity of his mental illness. 4. Possible d/c on Sunday. Subjective: Met with patient, reviewed chart and d/w staff. Patient greets MD enthusiastically. He says he's feeling "great" and looking forward to d/c. He denies any SE's from meds. He is no longer taking [place] b/c he didn't like the SE's he claimed were bothering him last weekend. He is pleasant, cooperative and calm. He is reading a spy thriller, and denies any SI/HI, no AH/ VH. Objective: Vital Signs Temp Pulse Resp BP Pulse Ox 36.9 C 96 12 140/88 H 91 L 08/17/17 05:22 08/18/17 08:00 08/18/17 08:00 08/18/17 08:00 08/18/17 08:00 MSE: Affect: Calm Mood: "Great" TP: Linear, goal-directed TC: Denies any SI/ HI, no AH/VH Insight/Judgment: Poor - Time Spent With Patient Time Spent With Patient: 20" - Pending Discharge Pending Discharge Within 24 Hours: No Pending Discharge Within 48 Hours: No ICD10 Worksheet Patient Problems: Problems Problem Status Onset Acute psychosis Acute Bipolar affective, manic, severe w/ psych Acute Sinus tachycardia Acute
[2017-08-18] MEDS: QUEtiapine FUMARATE 300 MG TAB PO SCH (21:30)
[2017-08-18] MEDS: PATCH REMOVAL 1 EA PATCH TD SCH (22:13)
[2017-08-19] MEDS: LIDOCAINE 4%/MENTHOL 1% PATCH TD SCH (08:49)
[2017-08-19] MEDS: GABAPENTIN 300 MG CAP PO SCH ×3 (08:50→21:24)
[2017-08-19] MEDS: PROPRANOLOL HCL 20 MG TAB PO SCH ×3 (08:50→21:23)
--- NOTE | 2017-08-19 13:54 | ASMTBHDC ---
Notes Note: Notes: Pt. reports feeling "well". Pt. stated he "slept all the way through the night". Pt. stated he needs some physical therapy after discharging and would like to get massages to help his lower back feel better. CC discussed [facility] with pt., telling pt. he was not accepted. Pt. told CC she was wrong, that other staff have confirmed he is going to [facility]. CC offered to setup pt's entrance to a homeless alf if he can't go to [facility], which pt. stated he didn't need. Pt. stated "I know it will vehicle return associate the way I need it to". Pt. then ended the conversation by telling CC "want to be left to do my writings". Pt. presents as defensive, disorganized and lacking insight. Pt. made it a point to speak to CC again about how she is incorrect . Date Signed: 08/19/2017 01:53 PM Electronically Signed By:Mary Valdes
--- NOTE | 2017-08-19 14:55 | SOAPPROG ---
SOAP Progress Note Assessment/Plan: Assessment: Bipolar I disorder, with harry and psychosis. Per Aiden Kwon's note: Bipolar I disorder, with harry and psychosis. Patient continues to show improvement (see subjective/objective note). Antisocial Antisocial personality disorder. After observing patient for several weeks and reviewing past records, patient meets this diagnosis criteria including failure to conform to social norms (unlawful behaviors, hx arrests, incarceration), deceitfulness, impulsivity, irritability and aggressiveness, reckless disregard for safety of self or others, and consistent irresponsibility (repeated failures to sustain consistent work behavior or honor financial obligations). 08/18/17 15:34 1. Patient says he wants to go to [facility]. When MD asks what his backup plan is, patient says he doesn't have one. 2. Patient has f/u appts at [facility] on Sunday, 08/20. 3. Patient still has limited insight into the nature/severity of his mental illness. 4. Possible d/c on Sunday. 08/19/17 14:52 1. Patient became defensive when CC brought up whether or not patient had been accepted to [facility] after discharge. 2. Patient has been compliant with the meds he has chosen to take. Still refuses to consider first line mood stabilizer to treat his harry, even though he remains acutely manic, a/e/b grandiosity, impaired judgment, racing thoughts , elevated mood, delusions, mood lability. 3. Possible d/c on Sunday. Patient insists he will be going to [facility], but CC does not have confirmation that patient has been accepted to [facility]. Subjective: Met with patient, reviewed chart and d/w staff. Patient became irritable and defensive when CC told him she did not have confirmation that he had been accepted to [facility]. Patient insists he will go directly to [facility] tomorrow as soon as he is discharged. CC was not able to contact [facility] today to find out is this true. Patient wrote a 2 page (double-sided) letter to the mother of his children. It was discursive and tangential, and made no sense. At one point, patient wrote "sometimes I feel like an action hero and not a character from ocean [employer] or [employer], but I know I am a cross between Frank Hansen and Javier Day." Patient also said he looks like "Juan Agrawal." Denies any SI/HI, no AH/VH. Objective: Vital Signs Temp Pulse Resp BP Pulse Ox 36.9 C 90 12 138/88 H 93 08/17/17 05:22 08/19/17 08:00 08/19/17 08:00 08/19/17 08:00 08/19/17 08:00 MSE: Affect: Euthymic, irritable at times when talking about d/c Mood: "OK" TP : Perseverative, TC: Denies any SI/HI, no AH/VH Insight/Judgment: Poor - Time Spent With Patient Time Spent With Patient: 20" - Pending Discharge Pending Discharge Within 24 Hours: No Pending Discharge Within 48 Hours: No ICD10 Worksheet Patient Problems: Problems Problem Status Onset Acute psychosis Acute Bipolar affective, manic, severe w/ psych Acute Sinus tachycardia Acute
[2017-08-19] MEDS: MAGNESIUM HYDROXIDE 30 ML UDCUP PO PRN (19:24)
[2017-08-19] MEDS: QUEtiapine FUMARATE 300 MG TAB PO SCH (21:23)
[2017-08-19] MEDS: PATCH REMOVAL 1 EA PATCH TD SCH (21:55)
[2017-08-20 07:25] VITALS: BP 132/98
[2017-08-20] MEDS: LIDOCAINE 4%/MENTHOL 1% PATCH TD SCH (07:47)
[2017-08-20] MEDS: GABAPENTIN 300 MG CAP PO SCH (07:47)
[2017-08-20] MEDS: PROPRANOLOL HCL 20 MG TAB PO SCH (07:52)
--- NOTE | 2017-08-20 09:56 | BDS ---
[f rep st] BEHAVIORAL HEALTH DISCHARGE SUMMARY REASON FOR ADMISSION: Pertinent data from the ED note dated 07/19/2017: The patient was brought from the senior living for a mental health evaluation. The patient was evaluated and found to be gravely disabled. The patient has a history of psychosis and mental illness in the past. The patient had been taking Seroquel. Patient denied suicidal and homicidal ideation. The patient was placed on a mental health hold in senior living prior to being transferred to the ED. Pertinent data from psychiatric assessment and history dated 07/19/2017: The patient was sent to the [facility] Emergency Department on an M1 hold for grave disability and then admitted to the inpatient psychiatric unit here at [facility]. The patient was admitted for safety, crisis stabilization, and medication evaluation. ADMITTING DIAGNOSES: Bipolar affective, manic, severe with psychosis. ADMISSION PHYSICAL EXAM: The patient was seen for medical consultation by Dr. Watters on 07/20/2017. Dr. Watters saw the patient for medical clearance for inpatient behavioral health stay. Dr. Watters reported he saw no medical contraindications to this patient's continued stay in the inpatient behavioral health unit or to any psychiatric medications or procedures. For further details regarding admission physical exam, please refer to Dr. Watters's note dated 07/20/2017. ADMISSION LABS: CBC WNLs, glucose elevated at 138, toxicology negative for all substances of abuse, lipid panel WNLs expect for VLDL elevated at 26. HOSPITAL COURSE: The most prominent symptoms and behaviors while the patient was here were harry and psychosis. Mental status exam at time of admission by Dr. Estrella reported that the patient was up walking around on the unit without a shirt. He appeared muscular but somewhat thin. He had poor hygiene. He looked like he had not shaved in a week or two. His hair was matted and unwashed. He was loud and speaking over me. He has loud, pressured speech. His thoughts were tangential with flight of ideas. He had grandiose delusions and bizarre ideas. He denied thoughts to hurt himself or others. He denied hallucinations. He did have paranoia regarding the [employer] and [employer] and his family. He had grandiose delusions that he was on a special mission for a agency and had grandiose beliefs that he had never been arrested. He was oriented to the hospital in [facility] and the year. He was a poor historian. His insight was poor. His judgment was impaired. He was ambulatory , without tremors or weakness. Per Dr. Estrella's initial assessment at time of admission, the patient appeared manic, with flight of ideas and grandiosity and impaired reality testing. The report from the senior living is that the patient was disorganized, not bathing, not showering, not eating or drinking well, and the collateral information from a PhD psychologist that visited the patient in January of 2017 indicated that the patient was smearing feces there and was delusional and manic then as well. The patient has poor insight, but reports he is willing to take Seroquel to help "help with sleep." Target symptoms during the patient's hospitalization were symptoms of harry and psychosis. Treatment modalities utilized were milieu and group therapy. Upon admission, the patient was continued on Seroquel 200 mg in the morning and 400 mg at bedtime for mood stability and harry. Plan was to increase the dose if the patient continued to be compliant. At the time of admission, the patient was unwilling to take other medications suggested, including Zyprexa, and the MD who saw the patient on admission also discussed lithium and Depakote as a mood stabilizer to be taken with Seroquel. The patient, at that time, was unwilling to take either of these medications. During the course of the hospitalization, the Seroquel dose was increased to treat acute psychosis and for acute mood stabilization. The patient did at one point agree to a trial of risperidone. This medication was added while Seroquel was slowly tapered to make a switch to risperidone. During this trial, the patient became more agitated, aggressive, and the trial was considered a failure, and the patient also reported he no longer wanted to take risperidone. Seroquel was then increased back to doses to treat acute harry and psychosis. The patient also agreed to a trial of lithium during the course of his hospitalization. [place] was started, titrated , and reached a therapeutic level of 0.9. The patient then stopped and refused to take the lithium and stated he did not want to take it because he had taken it in the past, and he did not like the side effects. Seroquel was continued. The patient did respond well to the higher doses of Seroquel for acute harry and psychosis. At time of discharge, the patient was responding well to Seroquel for both harry and psychosis, with no report of side effects. At time of discharge, the Seroquel was at an adequate maintenance dose of 800 mg p.o. q.h.s. The patient was also started on gabapentin during the course of his stay. This medication was added to target agitation and anxiety, and that was a safer alternative for the patient rather than to discharge the patient on controlled substances, such as benzodiazepines, due to the patient's history of addiction. The patient responded well to gabapentin, with no report of side effects and was discharged on gabapentin 800 mg p.o. t.i.d. Propranolol was also started during the course of the patient's hospitalization. This medication was slowly titrated to target agitation, and also benefited the patient's hypertension. At time of discharge, the patient requested for propranolol to be dosed twice a day rather than 3 times a day and the patient agreed to be discharged on propranolol 40 mg p.o. b.i.d. The patient has improved considerably since time of admission. The patient reports he has improved since his admission, states to be in stable condition, feels safe to discharge and contracts for safety. The patient attended to all his ADLs, including shaving, showering, dressing, attending and eating all meals , was appropriate with staff and other patients and is no longer gravely disabled due to his mental illness. The patient's response to treatment was good. There were no adverse or unexpected results of treatment. The patient was safe throughout his stay. Denied SI/HI. Patient was active in his treatment, attended and engaged in groups, and was appropriate with our staff and treatment team. The treatment team consensus is the patient is no longer gravely disabled due to a mental illness, is not a danger to himself or others, is in stable condition, and is safe to discharge today. CONDITION ON DISCHARGE: Patient is in stable condition and is no longer a danger to self or others, and is not gravely disabled due to mental illness. Patient is no longer in need of inpatient level of care, and can be safely and effectively treated within the community. The patients level of risk at time of discharge is low based on the risk assessment below following this discharge summary. MSE: The patient is casually dressed and with good hygiene, and looks stated age. Patient is sitting, posture is upright, and position is relaxed. Patient appears awake, alert, and responds appropriately and reasonably during interview. Patient is engaged, relates well to interviewer, and emotional facial expression is appropriate to situation and changes appropriately with topic. Patient is cooperative, makes comfortable eye contact, and movements are voluntary, deliberate, coordinated, and smooth and even with no inappropriate movements. Patient makes laryngeal sounds effortlessly and shares conversation appropriately; pace of conversation is appropriate, and stream of talking is fluent; articulation is clear and understandable; word choice is effortless and appropriate for education level; completes sentences, occasionally pausing to think; rate and volume are appropriate for interview and setting. Patient reports mood as euthymic. Patients affect is stable with full variable range, congruent with mood, and appropriate to speech and circumstances. Patient has linear and logical thinking, with no loose associations, tangential thought, thought blocking, concrete thinking, or any other signs of formal thought disorder. Patient denies suicidal and homicidal ideation, and denies hallucinations and delusions. Patient appears to be a reliable historian with sound judgement and good insight into current condition. Patient has no apparent dysfunction in recent or remote memory noted , and no evidence of gross cognitive dysfunction noted at any point during the interview. DISCHARGE DIAGNOSES: Bipolar affective, manic, severe with psychosis ( currently well controlled on medications), antisocial personality disorder, homelessness. DISCHARGE MEDICATIONS: The patient was discharged today with prescriptions for medications that he was prescribed during the course of this hospitalization. The patient has taken these medications for several weeks without report of side effects, and at time of discharge, the patient was showing a good response to these medications. The patient was discharged with 30-day prescriptions of the following: Seroquel 800 mg p.o. q.h.s., gabapentin 800 mg p.o. t.i.d., and propranolol 40 mg p.o. b.i.d. This interviewer reviewed prescriptions with patient at time of discharge. DISPOSITION: Patient left hospital independently and voluntarily with our animal care giver, and the animal care giver walked the patient over to [facility] for an 8:30 a.m. intake appointment. FOLLOWUP: microbiology coordinator reports the appropriate outpatient follow-up services have been established and outpatient appointments have been scheduled. The patient received written instructions with times and dates of outpatient follow-up appointments. The following follow-up recommendations were provided to the patient at discharge: Continue psychotropic medications as prescribed and attend appointments as scheduled. Report any side effects to a psychiatric outpatient provider, a primary care provider, or other health career placement specialist. Address any questions or problems concerning the psychotropic medications with a psychiatric outpatient provider, a primary care provider, or other health career placement specialist. Contact [facility] or [facility], or go to the nearest emergency room, if you are ever a danger to yourself/others, or unable to care for yourself. As soon as possible, establish a routine medication management treatment with a psychiatric provider, establish routine therapy appointments, and follow-up with a primary care provider. LEGAL COURSE: The patient was admitted on an M1 involuntary hold. During the course of the patient's hospitalization, the patient was placed on a short-term certification. Patient discharged today independently and voluntarily. ATTITUDE AT TIME OF DISCHARGE: The patient's attitude was positive at time of discharge, and patient reports looking forward to discharging today. The patient reports he feels safe to discharge, is not a danger to himself or others , and is no longer gravely disabled due to his mental health illness. Patient reports to be in stable condition and contracts for safety. Patient states he will continue medications as prescribed and establish medication management treatment with an outpatient provider after discharge. The patient reports he understands the information that has been provided to him, and he understands, accepts, and agrees to psychotropic medications. The patient reports internal protective factors as the coping skills he has learned while hospitalized here, and he plans to continue to practice these coping skills after discharge. The patient reports external protective factors as his friends and his future plans. The patient describes looking forward to finding a job and connecting with friends in the [place] area after he discharges today. The patient describes future plans as finding employment in the [facility] and staying in the [facility]. The patient reports his friends look forward to him discharging today. Patient reports he plans to stay with a friend in [place] after he discharges today. PENDING LABS OR STUDIES: There were no pending labs or studies at time of discharge. ADVANCE DIRECTIVES: There were no advance directives on file, and patient was full code during hospitalization. The following psychotropic medication treatment informed consent and recommendations were provided to the patient at time of discharge. Patient reports he understands, accepts, and agrees to the information that has been provided. PSYCHOTROPIC MEDICATION TREATMENT INFORMED CONSENT and RECOMMENDATIONS: Review nature of condition, diagnosis, and prognosis. Review nature and purpose of psychotropic medication treatment. Review type of psychotropic medications being prescribed. Review risk and benefits of psychotropic medication treatment. Review probable length of time will need to take medications. Review risk and benefits of not undergoing psychotropic medication treatment. Review alternative treatments to psychotropic medications. Review psychotropic medications contraindications, side effects, and importance of reporting any side effects to a psychiatric provider, primary care provider, or other health career placement specialist. Review importance of her asking a psychiatric provider or primary care provider any questions or problems concerning the psychotropic medications. Review importance of reporting to a psychiatric provider, primary care provider, or other health career placement specialist if she plans to or becomes . Review safety plan and the importance to contact [facility] or [facility] , or go to the nearest emergency room, if ever a danger to yourself/others, or unable to care for yourself. Recommend upon discharge to establish routine medication management treatment with a psychiatric provider, establish routine therapy appointments, and follow-up with a primary care provider. Verify patient understands, accepts, and agrees to the information that has been provided. /[id number]/MODL MTDD
== END 2017-08-20 08:09 | disposition home or self-care (01) | DRG 885 ==
LOC: EEVIPCON 02:12 → BBEH 13:13
PROVIDERS: ADMIT Registered Nurse; ATTEND Registered Nurse
DX: F31.2 Bipolar disorder, current episode manic severe with psychotic features (principal); F41.9 Anxiety disorder, unspecified; F60.2 Antisocial personality disorder; S80.811A Abrasion, right lower leg, initial encounter; I10 Essential (primary) hypertension; M54.5 Low back pain; S43.102S Unspecified dislocation of left acromioclavicular joint, sequela; Z87.891 Personal history of nicotine dependence; Z88.0 Allergy status to penicillin; Z59.0 Homelessness
CPT/HCPCS: 80305; G0480; J1630; J2060

== ENCOUNTER 2017-12-15 15:59 | Inpatient (IN) | payer MEDICAID, OTHER ==
--- NOTE | 2017-12-15 16:16 | EDPHY ---
H & P Stated Complaint: M1 from [facility] Source: Patient Exam Limitations: No limitations - Medical/Surgical History Hx Asthma: No Hx Chronic Respiratory Disease: No Hx Diabetes: No Hx Cardiac Disease: Yes Hx Renal Disease: No Hx Cirrhosis: No Hx Alcoholism: No Hx HIV/AIDS: No Hx Splenectomy or Spleen Trauma: No Other PMH: PSYCH HX/PARANOIA/ANXIETY, HTN - Family History Significant Family History: No pertinent family hx - Social History Smoking Status: Former smoker Alcohol Use: Sober Drug Use: None Time Seen by Provider: 12/15/17 16:05 HPI/ROS: CHIEF COMPLAINT: Schizophrenia HISTORY OF PRESENT ILLNESS: Patient is a 37-year-old man with a history of schizophrenia who was [facility] from [facility] for smearing feces all over his cell and a putting his fingers in the feces and then licking his fingers. He has a history of schizophrenia. He is a history of thinking that he is an business intelligence etl developer and speaks 36 language is and that there are people after him who have super natural oneill and can transfer form DNA into RNA. He also reports that he has progressed through the [employer] and went to law school. He is denying any complaints to me currently. He has been receiving Seroquel at [facility] no other medications. He denies recent drug or alcohol ingestion. He denies suicidality. Severity: Moderate Modifying factors: None REVIEW OF SYSTEMS: Constitutional: denies: chills, fever, recent illness, recent injury EENTM: denies: blurred vision, double vision, nose congestion Respiratory: denies: cough, shortness of breath Cardiac: denies: chest pain, irregular heart rate, lightheadedness, palpitations Gastrointestinal/Abdominal: denies: abdominal pain, diarrhea, nausea, vomiting, blood streaked stools Genitourinary: denies: dysuria, frequency, hematuria, pain Musculoskeletal: denies: joint pain, muscle pain Skin: denies: lesions, rash, jaundice, bruising Neurological: denies: headache, numbness, paresthesia, tingling, dizziness, weakness Hematologic/Lymphatic: denies: blood clots, easy bleeding, easy bruising Immunologic/allergic: denies: HIV/AIDS, transplant 10 systems reviewed and negative except as noted EXAM: GENERAL: Well-appearing, well-nourished and in no acute distress. HEAD: Atraumatic, normocephalic. EYES: Pupils equal round and reactive to light, extraocular movements intact, sclera anicteric, conjunctiva are normal. ENT: TMs normal, nares patent, oropharynx clear without exudates. Moist mucous membranes. NECK: Normal range of motion, supple without lymphadenopathy or JVD. LUNGS: Breath sounds clear to auscultation bilaterally and equal. No wheezes rales or rhonchi. HEART: Regular rate and rhythm without murmurs, rubs or gallops. ABDOMEN: Soft, nontender, normoactive bowel sounds. No guarding, no rebound. No masses appreciated. BACK: No CVA tenderness, no spinal tenderness, step-offs or deformities EXTREMITIES: Normal range of motion, no pitting or edema. No clubbing or cyanosis. NEUROLOGICAL: Cranial nerves II through XII grossly intact. Normal speech, normal gait. 5/5 strength, normal movement in all extremities, normal sensation , normal reflexes PSYCH: Cooperative, answers questions appropriately but has grandiose thoughts SKIN: Warm, dry, normal turgor, no visible rashes or lesions. (Kwasi Napier) Constitutional: Initial Vital Signs Temperature (C) 36.8 C 12/15/17 16:05 Heart Rate 115 H 12/15/17 16:05 Respiratory Rate 16 12/15/17 16:05 Blood Pressure 110/89 H 12/15/17 16:05 O2 Sat (%) 96 12/15/17 16:05 O2 Delivery Mode Room Air Allergies/Adverse Reactions: azithromycin Allergy (Verified 12/15/17 16:04) Penicillins Allergy (Verified 12/15/17 16:04) Home Medications: Medication Instructions Recorded Gabapentin 800 mg PO TID 30 Days #90 tablet 08/20/17 Propranolol HCl 40 mg PO BID 30 Days #60 tablet 08/20/17 Quetiapine Fumarate [Seroquel] 800 mg PO HS 30 Days #60 tablet 08/20/17 Medical Decision Making ED Course/Re-evaluation: 7:00 a.m. I assumed care of this patient at shift change. He presents with acute psychosis and is on an M1 hold. He has been evaluated by mental health and they are looking for inpatient disposition. Dancing in his room, agitated. Seroquel 200mg orally given. Pt calmed down, resting comfortably after Seroquel. 3pm: signed over to Dr. Escudero at shift change. Disposition pending. (Bridget Rivers) 182: Patient accepted by Dr. Panda. EMTALA filled out. [facility] transfer will bet set up. At time of transfer the patient was somewhat agitated patient was given 10 mg p.o. Zyprexa. He has calmed down. Safe for transfer. (Marquise Escudero) 850 patient has been evaluated by Mental Health. They feel that he will require admission. Care transferred to Dr. Rodriguez at shift change. (Kwasi Napier) Differential Diagnosis: Partial list of the Differential diagnosis considered include but were not limited to; schizophrenia, psychosis, and although unlikely based on the history and physical exam, I also considered infection, head injury. (Kwasi Napier) Other Provider: 22:[address] Rodriguez pending mental health evaluation. 0700 patient signed out to Dr. Rivers pending mental health placement. No issues during my care this patient overnight. (Faustino Juarez) - Data Points Laboratory Results: Laboratory Results 12/15/17 16:15 12/15/17 16:15 Medications Given: Propranolol HCl (Inderal) 40 mg PO BID STANLEY Stop: 06/15/18 08:59 Last Admin: 12/17/17 09:03 Dose: Not Given Risperidone (Risperdal-M) 1 mg SL DAILY STANLEY Stop: 06/15/18 08:59 Last Admin: 12/17/17 08:44 Dose: 1 mg Discontinued Medications Lorazepam (Ativan) 1 mg PO EDNOW ONE Stop: 12/16/17 07:37 Last Admin: 12/16/17 07:50 Dose: Not Given Olanzapine (Zyprexa Injection) 10 mg IM EDNOW ONE Stop: 12/16/17 18:49 Last Admin: 12/16/17 18:58 Dose: Not Given Olanzapine (Zyprexa Zydis) 10 mg PO EDNOW ONE Stop: 12/16/17 18:59 Last Admin: 12/16/17 18:59 Dose: 10 mg Propranolol HCl (Inderal) 40 mg PO EDNOW ONE Stop: 12/16/17 08:40 Last Admin: 12/16/17 08:48 Dose: 20 mg Quetiapine Fumarate (Seroquel) 400 mg PO EDNOW ONE Stop: 12/16/17 07:51 Last Admin: 12/16/17 08:03 Dose: 400 mg Quetiapine Fumarate (Seroquel) 200 mg PO EDNOW ONE Stop: 12/16/17 18:03 Last Admin: 12/16/17 18:06 Dose: 200 mg Departure - Departure Disposition: Other Psych, Not Omar Clinical Impression: Acute psychosis Condition: Fair
[2017-12-15 16:39] LABS: PLATELET COUNT 313 10^3/uL (150-400)
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
[2017-12-16] MEDS ORDERED: LORazepam 1 MG TAB PO ONE (07:36)
[2017-12-16] MEDS ORDERED: QUEtiapine FUMARATE 200 MG TAB PO ONE ×2 (07:50→18:02)
[2017-12-16] MEDS ORDERED: PROPRANOLOL HCL 20 MG TAB PO ONE (08:39)
[2017-12-16] MEDS ORDERED: OLANZapine DISINTEGR 10 MG TAB ONE (18:44)
[2017-12-16] MEDS ORDERED: OLANZapine 10 MG/2 ML VIAL ONE (18:47)
[2017-12-16] MEDS ORDERED: OLANZapine 10 MG/2 ML VIAL IM ONE (18:48)
[2017-12-16] MEDS ORDERED: OLANZapine DISINTEGR 10 MG TAB PO ONE (18:58)
[2017-12-16] MEDS ORDERED: MAG HYDROX/AL HYDROX/SIMETH 30 ML UDCUP PO PRN (19:53)
[2017-12-16] MEDS ORDERED: NICOTINE POLACRILEX 2 MG GUM B PRN (19:53)
[2017-12-16] MEDS ORDERED: OLANZapine DISINTEGR 10 MG TAB PO PRN (19:53)
[2017-12-16] MEDS ORDERED: MAGNESIUM HYDROXIDE 30 ML UDCUP PO PRN (19:53)
[2017-12-16] MEDS ORDERED: ACETAMINOPHEN 325 MG TAB PO PRN (19:53)
--- NOTE | 2017-12-17 08:04 | ASMTBHMTP ---
Master Treatment Plan Master Treatment Plan Answers: Mood Instability with for: Psychosis Date: 12/16/2017 Diagnosis on Admission: Bi-Polar Disorder, with Psychotic Features 296.44 (F31.2) Expected length of stay: 3-5 days Reason for admission: Notes: Per Report: Pt is 37 yo unemployed, homeless, male, with reported prior history of bipolar disorder, brought to [facility] ed by [employer] officers from [facility] on M1 hold which noted "Client at [facility] Ja[facility] has feces all over his hands and smith. CT appears to be gravely disabled as evidenced by illogical thoughts, rambling speech, and bizarre behavior. CT is not able to care for bridger fan din need of futher assessment." However, pt's ED presentation is grossly different from [facility]. PT reported he was here because the [facility] wanted to get him help. PT expressed gratitude for the food and began using elaborate flowery and philosophical language in a grandios manner while talking about himself and his life (See patient statements above). Pt vacillates between lucid and bizarre and is not a reliable historian. Patient's stated presenting problems: Notes: "I [am here] becuase of the corruption and collusion." Patient's goals for treatment: Notes: "to get in a mood that will let me kill others." Also, I would like good food, pussy and money." Patient's strengths: Notes: none Identify supports outside of hospital: Notes: Family out of state Discharge criteria: Notes: Patient will demonstrate more stable mood by discharge. Initial disposition plan/considerations: Notes: "Fuck shit up." Master Treatment Plan Required Signatures Psychiatrist signature: Answers: Psychiatrist: RN on-shift signature: Answers: RN: Patient signature: Answers: Patient: Date Signed: 12/17/2017 08:03 AM Electronically Signed By:Rhys Hernandez
[2017-12-17] MEDS ORDERED: RISPERIDONE ODT 0.5 MG TAB SL SCH (09:00)
[2017-12-17] MEDS: PROPRANOLOL HCL 40 MG TAB PO SCH ×2 (09:03→20:06)
--- NOTE | 2017-12-17 13:15 | BCON ---
INTERNAL MEDICINE CONSULTATION DATE OF CONSULTATION: 12/17/2017 REFERRING PHYSICIAN: Jj Panda MD REASON FOR REFERRAL: Medical clearance for inpatient behavioral health stay. HISTORY OF PRESENT ILLNESS: This patient was brought to the emergency department 2 days ago from the residential, where he had been smearing feces on the wall. He was judged to be gravely disabled and admitt ed to inpatient behavioral health for further psychiatric care. Currently, he is without any acute m edical complaints. PAST MEDICAL HISTORY: 1. Psychiatric diagnoses, including schizophrenia, schizoaffective disorder, bipolar disorder, and a ntisocial personality disorder. 2. Hypertension. PAST SURGICAL HISTORY: He has not had any surgeries. MEDICATIONS: Upon discharge from his prior psychiatric hospitalization, he was prescribed gabapentin 800 mg p.o. t.i.d., propranolol 40 mg p.o. b.i.d., and quetiapine 800 mg p.o. q.h.s. ALLERGIES: There are allergies listed to azithromycin and penicillins. SOCIAL HISTORY: He was recently incarcerated. He is a nonsmoker. He denies alcohol use, but he has used marijuana and psychedelic drugs. He is homeless. FAMILY HISTORY: Noncontributory. REVIEW OF SYSTEMS: He acknowledges thirst. He denies weight change, fevers, chills, cough, dyspnea, nausea, vomiting, constipation, diarrhea, urinary frequency, or dysuria. Otherwise, a 10-point revi ew of systems is negative. PHYSICAL EXAM: VITAL SIGNS: Blood pressure is 135/70, heart rate is 130, respiratory rate is 16, ox ygen saturation is 92% on room air, temperature is 36.4 degrees centigrade. These were taken yesterd ay evening at 1934. His weight is 81.6 kg, for a body mass index of 23.1. GENERAL: This is a well- nourished, well-developed, somewhat unkempt man with long dreadlocks and a full stubbs. In bed, coope rative, and in no acute distress. He sits up to interact with the examiner. HEENT: Extraocular mov ements are intact. Pupils are equal, round, and reactive to light. Mucous membranes are moist. Den tition is in good condition. NECK: Supple. HEART: There is a regular rate and rhythm with no murm urs, rubs, or gallops. LUNGS: Clear to auscultation bilaterally. ABDOMEN: Benign. NEUROLOGIC: H e is alert. Orientation is not checked. Cranial nerves 2 through 12 are grossly intact. There is n o focal weakness. Sensation is intact to light touch, and gait is within normal limits. LABORATORY STUDIES: From the emergency department: CBC revealed an elevated hemoglobin and hematocr it at 18 and 51.7. MCV was slightly low at 79.2. White blood cell count was mildly elevated at 11.1 4. There was no left shift. It was predominantly an elevation of absolute lymphocytes at 7.66. Ser um chemistry revealed normal renal function and electrolytes. Glucose was slightly elevated at 108. Toxicology screen in the serum was negative for ethyl alcohol, and the urine was negative for substa nces of abuse. TSH was normal in June of this year, and lipid panel was essentially benign. There wa s a very mild elevation of the LDL cholesterol. Hemoglobin A1c was 5.1. ASSESSMENT/RECOMMENDATIONS: 1. Mental health issues pending further evaluation and management, per Psychiatry and the mental [facility] team. 2. History of elevated blood pressure. Unclear whether propranolol was for blood pressure or used a s a psychiatric medication. On his current stay in the emergency department, his blood pressure has been as high as 159/121 and as low as 90 systolic and 63 diastolic. I advised continuing to monitor his blood pressures. Propranolol has been prescribed, but per chart review, he did not receive it th is morning. Would continue propranolol and continue to monitor blood pressures. 3. Likely dehydration, as evidenced by tachycardia and hemoconcentration on his complete blood count . His basic metabolic panel does not appear frankly dehydrated. Advised normal hydration and monito r for normal oral intake. I see no medical contraindications to this patient's continued stay on the inpatient [facility] unit or to any psychiatric medications or procedures. Thank you very much for including me in the care of this patient, and please do not hesitate to conta ct me or the hospitalist service should there be need for further medical evaluation. /[id number]/MODL
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
[2017-12-17] MEDS ORDERED: RISPERIDONE 1 MG ODT TAB SL PRN (20:37)
--- NOTE | 2017-12-18 06:41 | SOAPPROG ---
SOAP Progress Note Assessment/Plan: Assessment: Schizoaffective disorder, bipolar type, current acute psychosis, disorganized, withdrawn. Antisocial Personality Disorder. Homelessness. No change (see Subjective and Objective). Patient is not safe to discharge at this time as patient continues to exhibit signs of psychosis, and express psychosis symptoms. Patient requires continued inpatient care because of current acute psychosis, and requires inpatient level of care to stabilize in order to no longer be gravely disabled due to mental illness. Patient could benefit from continued inpatient hospitalization for crisis stabilization, safety, and medication evaluation. Patient could benefit from [facility] prior to discharge due to history of non-adherence. Plan: (1) Psychotropic medications: After reviewing options, risks, and benefits patient agrees to trial of Risperdal M-tab 2 mg SL QD. No other medication changes at this time as more time is needed to determine ongoing tolerability and efficacy. Plan is to continue to observe patient for response and side effects from medications, and ongoing monitoring and evaluation. (2) Review with patient informed consent and recommendations for psychotropic medication treatment listed below (3) Labs: no additional labs at this time (4) Therapy: continue milieu and group therapy (5) Further investigation including gathering information from patients relatives and review of past case records to inform treatment plan. (6) Safety/Wellness plan and follow-up outpatient appointments to be established prior to discharge. Next steps are for patient to meet with care aid to plan a safe discharge plan and establish outpatient services for ongoing treatment. (7) Confer with inpatient treatment team regarding treatment plan. (8) Legal status: [facility] (9) Consider discharge next week if patient is in stable condition, safe, and has a safe discharge plan. PSYCHOTROPIC MEDICATION TREATMENT INFORMED CONSENT and RECOMMENDATIONS: Review nature of condition, diagnosis, and prognosis. Review nature and purpose of psychotropic medication treatment. Review type of psychotropic medications being ordered. Review risk and benefits of psychotropic medication treatment. Review probable length of time patient will need to take medications. Review risk and benefits of not undergoing psychotropic medication treatment. Review alternative treatments to psychotropic medications. Review psychotropic medications contraindications, drug-drug interactions, side effects, and importance of reporting any side effects to a psychiatric provider or nurse during inpatient hospitalization, and upon discharge to patients psychiatric outpatient provider, primary care provider, or other health pet caregiver. Review importance of asking a nurse, psychiatric provider, or primary care provider any questions or problems concerning the psychotropic medications. Verify patient understands the information that has been provided, and understands, accepts, and agrees to psychotropic medications. Review patients safety plan and importance of patient to report to staff while hospitalized if patient is ever a danger to self/others, or unable to care for self, and upon discharge, the importance for patient to contact [facility] or [facility], or go to the nearest emergency room, if patient is ever a danger to self/others, or unable to care for self. Recommend that upon discharge patient establish medication management treatment with a psychiatric provider, establishes routine therapy appointments, and follow-up with primary care provider. Verify patient understands and agrees to these recommendations. 12/18/17 06:41 Subjective: Following up with patient for evaluation of psychosis and safety. Patient watching TV when approached by this SUPPORT DIRECTOR. Patient states, "Did you give this lisa his stubbs back? I don't know about all of this. Look at my hands they are sweating. Have you ever tried Adderall? It's a stimulant. What about Monster ? Have you ever had those before?" When this SUPPORT DIRECTOR asks patient why patient is hospitalized patient reports, "For collusion, conspiracy, and confederation." Patient does not report undesirable side effects from the medications, agrees to continue current medications, and agrees to increase Risperdal to 2 mg SL QD. Patient reports appetite as good, and reports eating all meals. Patient describes getting 8 hours of sleep last night, reports feeling rested, and states he feels safe on the unit. Objective: Vital Signs Temp Pulse Resp BP Pulse Ox 36.4 C 130 H 16 135/70 H 92 12/16/17 19:34 12/16/17 19:34 12/16/17 19:34 12/16/17 19:34 12/16/17 19:34 NURSING REPORT: Consulted with nursing for update on patients progress in treatment. Nurses report patient is not engaged in treatment, is not attending groups, slept 10 hours last night, is withdrawn to his room during the day chanting and singing, comes out for meals and at times to watch TV, expresses the following psychiatric symptoms: none; exhibits the following psychiatric symptoms: disorganized, illogical, non-linear, nonsensical and gibberish speech ; is eating all meals, is agreeable to Risperdal with no report of side effects ; patient refused propranolol, with no s/s of EPS/akathisia, and denies SI/HI, denies A/V hallucinations, and denies delusions. Patient refused vital signs yesterday, reports he is agreeable to vital signs this AM. 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 MSE: The patient is a well-nourished male looking stated chronological age. Attire is inappropriate and dress is casual and hospital garb combination. Grooming status is inappropriate and disheveled. Ambulation is independent. Gait is normal and coordinated. Posture is normal and relaxed. Eye contact is inappropriate, and avoided. Motor activity is appropriate with purposeful, organized, coordinated movements; with no involuntary movements. Attitude is uncooperative and guarded. Patient appears distractible and does not relate well to this interviewer. Language production is unspontaneous. Majority of speech is nonsensical, rambling, and gibberish. Articulation is mumbling. Patient reports mood as okay with incongruent and expansive affect. Patients thought process is disorganized, non-linear, illogical, with loose associations , tangential thought, and nonsensical speech. Patient does not report suicidal/ homicidal thoughts, ideas, or plans. Patient denies auditory, visual hallucinations. Patient reports delusions. Patient does not appear to be attending to internal stimuli. Patients attention and concentration are poor. Patient is oriented to person. Patients insight and judgement are poor. - Time Spent With Patient Time Spent With Patient: 15 minutes, met with patient individually. - Pending Discharge Pending Discharge Within 24 Hours: No Pending Discharge Within 48 Hours: No ICD10 Worksheet Patient Problems: Problems Problem Status Onset Acute psychosis Acute Acute psychosis Acute Sinus tachycardia Acute Antisocial personality disorder Chronic Homelessness Chronic
[2017-12-18] MEDS: RISPERIDONE ODT 0.5 MG TAB SL SCH ×2 (08:17→08:22)
[2017-12-18] MEDS: PROPRANOLOL HCL 40 MG TAB PO SCH ×3 (08:18→20:07)
[2017-12-18] MEDS ORDERED: QUEtiapine FUMARATE 200 MG TAB PO ONE (09:22)
[2017-12-18] MEDS: QUEtiapine FUMARATE 200 MG TAB PO SCH ×2 (10:54→20:07)
[2017-12-18] MEDS ORDERED: QUEtiapine FUMARATE 200 MG TAB PO SCH (21:00)
[2017-12-18] MEDS: QUEtiapine FUMARATE 50 MG TAB PO PRN (22:04)
[2017-12-19] MEDS: QUEtiapine FUMARATE 50 MG TAB PO PRN ×2 (02:50→07:28)
--- NOTE | 2017-12-19 07:43 | SOAPPROG ---
SOAP Progress Note Assessment/Plan: Assessment: Schizoaffective disorder, bipolar type, current acute psychosis, disorganized, withdrawn. Antisocial Personality Disorder. Homelessness. No change (see Subjective and Objective). Patient is not safe to discharge at this time as patient continues to exhibit signs of psychosis, and express psychosis symptoms. Patient requires continued inpatient care because of current acute psychosis, and requires inpatient level of care to stabilize in order to no longer be gravely disabled due to mental illness. Patient could benefit from continued inpatient hospitalization for crisis stabilization, safety, and medication evaluation. Patient required approximately one month to stabilize during last hospitalization; patient has been referred to [facility] for [facility]- [facility] treatment. Suspect patient to stabilizer sooner this hospitalization as less time needed to determine most effective and tolerable treatment that patient agrees to. Plan: (1) Psychotropic medications: After reviewing options, risks, and benefits patient agrees to continue Seroquel 400 mg po BID. No other medication changes at this time as more time is needed to determine ongoing tolerability and efficacy. Plan is to continue to observe patient for response and side effects from medications, and ongoing monitoring and evaluation. (2) Review with patient informed consent and recommendations for psychotropic medication treatment listed below (3) Labs: no additional labs at this time (4) Therapy: continue milieu and group therapy (5) Further investigation including gathering information from patients relatives and review of past case records to inform treatment plan. (6) Safety/Wellness plan and follow-up outpatient appointments to be established prior to discharge. Next steps are for patient to meet with transitional care nurse to plan a safe discharge plan and establish outpatient services for ongoing treatment. (7) Confer with inpatient treatment team regarding treatment plan. (8) Legal status: [facility] (9) Consider discharge next week if patient is in stable condition, safe, and has a safe discharge plan. PSYCHOTROPIC MEDICATION TREATMENT INFORMED CONSENT and RECOMMENDATIONS: Review nature of condition, diagnosis, and prognosis. Review nature and purpose of psychotropic medication treatment. Review type of psychotropic medications being ordered. Review risk and benefits of psychotropic medication treatment. Review probable length of time patient will need to take medications. Review risk and benefits of not undergoing psychotropic medication treatment. Review alternative treatments to psychotropic medications. Review psychotropic medications contraindications, drug-drug interactions, side effects, and importance of reporting any side effects to a psychiatric provider or nurse during inpatient hospitalization, and upon discharge to patients psychiatric outpatient provider, primary care provider, or other health property caretaker. Review importance of asking a nurse, psychiatric provider, or primary care provider any questions or problems concerning the psychotropic medications. Verify patient understands the information that has been provided, and understands, accepts, and agrees to psychotropic medications. Review patients safety plan and importance of patient to report to staff while hospitalized if patient is ever a danger to self/others, or unable to care for self, and upon discharge, the importance for patient to contact [facility] or [facility], or go to the nearest emergency room, if patient is ever a danger to self/others, or unable to care for self. Recommend that upon discharge patient establish medication management treatment with a psychiatric provider, establishes routine therapy appointments, and follow-up with primary care provider. Verify patient understands and agrees to these recommendations. 12/19/17 07:41 Subjective: Following up with patient for evaluation of psychosis and safety. Patient states, "Yep, going good. Ruy, from [place]. Everything is good, if it isn' t broken don't fix it." When this RETIREMENT ADMINISTRATOR asks patient about reported threats he made to staff patient states, "It wasn't me. Was this person wearing a suit and tie?" Patient does not report undesirable side effects from the medications , agrees to continue current medications. Patient reports better response from Seroquel vs. Risperdal. Patient reports appetite as good, and reports eating all meals. Patient describes getting 8 hours of sleep last night. Objective: Vital Signs Temp Pulse Resp BP Pulse Ox 36.8 C 64 14 145/79 H 99 12/18/17 06:00 12/18/17 06:00 12/18/17 06:00 12/18/17 06:00 12/18/17 06:00 NURSING REPORT: Consulted with nursing for update on patients progress in treatment. Nurses report patient is not engaged in treatment, is not attending groups, slept 10 hours last night, is withdrawn to his room during the day chanting and singing, comes out for meals and at times to watch TV, expresses the following psychiatric symptoms: none; exhibits the following psychiatric symptoms: disorganized, illogical, non-linear, nonsensical and gibberish speech ; is eating all meals, is agreeable to medications and taking as prescribed with no report of side effects, with no s/s of EPS/akathisia, and denies SI/HI, denies A/V hallucinations, and denies delusions. Patient refused vital signs this AM, patient refused medications yesterday, agreed to trial of Seroquel; patient continues to refuse propranolol. Night staff reports patient made threats to staff ex. made a gun gesture to both himself and a night RN. Patient reportedly stated, "This is you and this is me" while making a gun gesture with hand. SENIOR MEDICAL DIRECTOR UPDATE: establishing discharge plan with [facility] for follow-up after discharge. MSE: The patient is a well-nourished male looking stated chronological age. Attire is inappropriate and dress is casual and hospital garb combination. Grooming status is inappropriate and disheveled. Ambulation is independent. Gait is normal and coordinated. Posture is normal and relaxed. Eye contact is inappropriate, and avoided. Motor activity is appropriate with purposeful, organized, coordinated movements; with no involuntary movements. Attitude is uncooperative and guarded. Patient appears distractible and does not relate well to this interviewer. Language production is unspontaneous. Majority of speech is nonsensical, rambling, and gibberish. Articulation is mumbling. Patient reports mood as okay with incongruent and expansive affect. Patients thought process is disorganized, non-linear, illogical, with loose associations , tangential thought, and nonsensical speech. Patient does not report suicidal/ homicidal thoughts, ideas, or plans. Patient denies auditory, visual hallucinations. Patient reports delusions. Patient does not appear to be attending to internal stimuli. Patients attention and concentration are poor. Patient is oriented to person. Patients insight and judgement are poor. - Time Spent With Patient Time Spent With Patient: 15 minutes, met with patient individually. - Pending Discharge Pending Discharge Within 24 Hours: No Pending Discharge Within 48 Hours: No ICD10 Worksheet Patient Problems: Problems Problem Status Onset Acute psychosis Acute Acute psychosis Acute Sinus tachycardia Acute Antisocial personality disorder Chronic Homelessness Chronic
[2017-12-19] MEDS: PROPRANOLOL HCL 40 MG TAB PO SCH ×2 (10:11→19:50)
[2017-12-19] MEDS: QUEtiapine FUMARATE 200 MG TAB PO SCH ×3 (10:25→21:36)
[2017-12-19] MEDS ORDERED: QUEtiapine FUMARATE 200 MG TAB PO ONE (11:17)
--- NOTE | 2017-12-19 12:14 | SOAPPROG ---
[facility] Progress Note Assessment/Plan: Assessment: Plan: Objective: Vital Signs Temp Pulse Resp BP Pulse Ox 36.8 C 64 14 114/58 L 99 12/18/17 06:00 12/18/17 06:00 12/18/17 06:00 12/19/17 10:11 12/18/17 06:00 ICD10 Worksheet Patient Problems: Problems Problem Status Onset Acute psychosis Acute Acute psychosis Acute Sinus tachycardia Acute Antisocial personality disorder Chronic Homelessness Chronic
--- NOTE | 2017-12-20 06:58 | SOAPPROG ---
SOAP Progress Note Assessment/Plan: Assessment: Schizoaffective disorder, bipolar type, current acute psychosis, disorganized, withdrawn. Antisocial Personality Disorder. Homelessness. Patient worsening; notably refused medications yesterday (see Subjective and Objective). Patient is not safe to discharge at this time as patient continues to exhibit signs of psychosis, and express psychosis symptoms. Patient requires continued inpatient care because of current acute psychosis, and requires inpatient level of care to stabilize in order to no longer be gravely disabled due to mental illness. Patient could benefit from continued inpatient hospitalization for crisis stabilization, safety, and medication evaluation. Patient required approximately one month to stabilize during last hospitalization; patient has been referred to [facility] for [facility] treatment. Suspect patient to stabilizer sooner this hospitalization (if takes medications as prescribed) as less time needed to determine most effective and tolerable treatment that patient agrees to; compared to previous hospitalization that required several medication trials. Plan: (1) Psychotropic medications: After reviewing options, risks, and benefits patient agrees to continue Seroquel 400 mg po BID. No other medication changes at this time as more time is needed to determine ongoing tolerability and efficacy. Plan is to continue to observe patient for response and side effects from medications, and ongoing monitoring and evaluation. (2) Review with patient informed consent and recommendations for psychotropic medication treatment listed below (3) Labs: no additional labs at this time (4) Therapy: continue milieu and group therapy (5) Further investigation including gathering information from patients relatives and review of past case records to inform treatment plan. (6) Safety/Wellness plan and follow-up outpatient appointments to be established prior to discharge. Next steps are for patient to meet with acute care nurse to plan a safe discharge plan and establish outpatient services for ongoing treatment. (7) Confer with inpatient treatment team regarding treatment plan. (8) Legal status: [facility] (9) Consider discharge next week if patient is in stable condition, safe, and has a safe discharge plan. (10) Consider court-ordered medications if patient continues to refuse medications. PSYCHOTROPIC MEDICATION TREATMENT INFORMED CONSENT and RECOMMENDATIONS: Review nature of condition, diagnosis, and prognosis. Review nature and purpose of psychotropic medication treatment. Review type of psychotropic medications being ordered. Review risk and benefits of psychotropic medication treatment. Review probable length of time patient will need to take medications. Review risk and benefits of not undergoing psychotropic medication treatment. Review alternative treatments to psychotropic medications. Review psychotropic medications contraindications, drug-drug interactions, side effects, and importance of reporting any side effects to a psychiatric provider or nurse during inpatient hospitalization, and upon discharge to patients psychiatric outpatient provider, primary care provider, or other health pharmacy care coordinator. Review importance of asking a nurse, psychiatric provider, or primary care provider any questions or problems concerning the psychotropic medications. Verify patient understands the information that has been provided, and understands, accepts, and agrees to psychotropic medications. Review patients safety plan and importance of patient to report to staff while hospitalized if patient is ever a danger to self/others, or unable to care for self, and upon discharge, the importance for patient to contact [facility] or [facility], or go to the nearest emergency room, if patient is ever a danger to self/others, or unable to care for self. Recommend that upon discharge patient establish medication management treatment with a psychiatric provider, establishes routine therapy appointments, and follow-up with primary care provider. Verify patient understands and agrees to these recommendations. 12/20/17 06:59 Subjective: Following up with patient for evaluation of psychosis and safety. Patient states, "Going good. I did not take my medications due to the 'conditionalities ' placed by the nursing staff. We could all use a hug right now. [facility] Patient does not report undesirable side effects from the medications, agrees to continue current medications. Patient reports appetite as good, and reports eating all meals. Patient describes getting 16 hours of sleep last night, and reports "had some lucid dreams of the 3rd degree." Objective: Vital Signs Temp Pulse Resp BP Pulse Ox 36.8 C 64 14 114/58 L 99 12/18/17 06:00 12/18/17 06:00 12/18/17 06:00 12/19/17 10:11 12/18/17 06:00 NURSING REPORT: Consulted with nursing for update on patients progress in treatment. Nurses report patient is not engaged in treatment, is not attending groups, slept 8 hours last night, is withdrawn to his room during the day starring out the window and at times singing and chanting, comes out for meals and at times to watch TV, expresses the following psychiatric symptoms: none; exhibits the following psychiatric symptoms: disorganized, illogical, non-linear , nonsensical and gibberish speech; is eating all meals, is agreeable to medications and taking as prescribed with no report of side effects, with no s/ s of EPS/akathisia, and denies SI/HI, denies A/V hallucinations, and denies delusions. Patient refused AM Seroquel and was agreeable to Seroquel later in the morning, patient refused HS dose of Seroquel last night; patient continues to refuse propranolol. [employer] POLICE OFFICER UPDATE: establishing discharge plan with [facility] for follow-up after discharge. Patient has been placed on waiting list for [facility]. MSE: The patient is a well-nourished male looking stated chronological age. Attire is inappropriate and dress is casual and hospital garb combination. Grooming status is inappropriate and disheveled. Ambulation is independent. Gait is normal and coordinated. Posture is normal and relaxed. Eye contact is inappropriate, and avoided. Motor activity is appropriate with purposeful, organized, coordinated movements; with no involuntary movements. Attitude is uncooperative and defensive. Patient appears distractible and does not relate well to this interviewer. Language production is unspontaneous. Majority of speech is nonsensical, rambling, and gibberish. Articulation is mumbling, with some clarity at times. Patient reports mood as okay with incongruent and expansive affect. Patients thought process is disorganized, non-linear, illogical, with loose associations, tangential thought, and nonsensical speech. Patient does not report suicidal/homicidal thoughts, ideas, or plans. Patient denies auditory, visual hallucinations. Patient reports delusions. Patient does not appear to be attending to internal stimuli. Patients attention and concentration are poor. Patient is oriented to person. Patients insight and judgement are poor. - Time Spent With Patient Time Spent With Patient: 15 minutes, met with patient individually. - Pending Discharge Pending Discharge Within 24 Hours: No Pending Discharge Within 48 Hours: No ICD10 Worksheet Patient Problems: Problems Problem Status Onset Acute psychosis Acute Acute psychosis Acute Sinus tachycardia Acute Antisocial personality disorder Chronic Homelessness Chronic
--- NOTE | 2017-12-20 06:58 | ASMTCMCOM ---
CM Note CM Note Notes: CC spoke with client briefly during check-in this morning. Client presents as dirty, disheveled, semi-alert, affect 'more' appropriate towards situation; however, client continues to speak of non logical or nonsensical topics. Including, describing his goal for today as "getting access to the linear time of the faith." Additionally, client denies any feelings of anxiety depression, S/I--H/I or AVH. Moreover, client suggest receiving over 15 + hours of sleep yesterday/last night. Client currently describes his mood as "doing great I hope all goes well." CC was informed by [facility] to provide notice to client later today regarding a possible transfer to [facility].* Client remains grossly gravely disabled. Date Signed: 12/20/2017 06:57 AM Electronically Signed By:Rhys Hernandez
[2017-12-20] MEDS: QUEtiapine FUMARATE 50 MG TAB PO PRN ×3 (07:30→21:54)
[2017-12-20] MEDS: PROPRANOLOL HCL 40 MG TAB PO SCH ×2 (11:07→19:32)
[2017-12-20] MEDS: QUEtiapine FUMARATE 200 MG TAB PO SCH ×2 (11:07→19:32)
--- NOTE | 2017-12-20 14:34 | ASMTCMCOM ---
CM Note CM Note Notes: Per [facility] and [facility] request client was placed on [facility]'s waitlist. CC provided client with "notice of going [possible] to [facility]," toady at 15:00 hours. Date Signed: 12/20/2017 02:33 PM Electronically Signed By:Rhys Hernandez
[2017-12-21] MEDS: QUEtiapine FUMARATE 50 MG TAB PO PRN ×3 (02:24→17:46)
--- NOTE | 2017-12-21 06:43 | SOAPPROG ---
SOAP Progress Note Assessment/Plan: Assessment: Schizoaffective disorder, bipolar type, current acute psychosis, disorganized, withdrawn. Antisocial Personality Disorder. Homelessness. Patient worsening; notably refused medications yesterday AM (see Subjective and Objective). Patient is not safe to discharge at this time as patient continues to exhibit signs of psychosis, and express psychosis symptoms. Patient requires continued inpatient care because of current acute psychosis, and requires inpatient level of care to stabilize in order to no longer be gravely disabled due to mental illness. Patient could benefit from continued inpatient hospitalization for crisis stabilization, safety, and medication evaluation. Patient required approximately one month to stabilize during last hospitalization; patient has been referred [facility]. Suspect patient to stabilizer sooner this hospitalization (if takes medications as prescribed) as less time needed to determine most effective and tolerable treatment that patient agrees to; compared to previous hospitalization that required several medication trials. Plan: (1) Psychotropic medications: After reviewing options, risks, and benefits patient agrees to continue Seroquel 400 mg po BID. Agrees to discontinue propranolol; will continue to monitor BP for indication to restart; no current s /s tachycardia. No other medication changes at this time as more time is needed to determine ongoing tolerability and efficacy. Plan is to continue to observe patient for response and side effects from medications, and ongoing monitoring and evaluation. (2) Review with patient informed consent and recommendations for psychotropic medication treatment listed below (3) Labs: no additional labs at this time (4) Therapy: continue milieu and group therapy (5) Further investigation including gathering information from patients relatives and review of past case records to inform treatment plan. (6) Safety/Wellness plan and follow-up outpatient appointments to be established prior to discharge. Next steps are for patient to meet with senior resident care director to plan a safe discharge plan and establish outpatient services for ongoing treatment. (7) Confer with inpatient treatment team regarding treatment plan. (8) Legal status: [facility] (9) Consider discharge next week if patient is in stable condition, safe, and has a safe discharge plan. (10) Consider court-ordered medications if patient continues to refuse medications. (11) Encourage patient to allow vital signs checked. PSYCHOTROPIC MEDICATION TREATMENT INFORMED CONSENT and RECOMMENDATIONS: Review nature of condition, diagnosis, and prognosis. Review nature and purpose of psychotropic medication treatment. Review type of psychotropic medications being ordered. Review risk and benefits of psychotropic medication treatment. Review probable length of time patient will need to take medications. Review risk and benefits of not undergoing psychotropic medication treatment. Review alternative treatments to psychotropic medications. Review psychotropic medications contraindications, drug-drug interactions, side effects, and importance of reporting any side effects to a psychiatric provider or nurse during inpatient hospitalization, and upon discharge to patients psychiatric outpatient provider, primary care provider, or other health resident care associate. Review importance of asking a nurse, psychiatric provider, or primary care provider any questions or problems concerning the psychotropic medications. Verify patient understands the information that has been provided, and understands, accepts, and agrees to psychotropic medications. Review patients safety plan and importance of patient to report to staff while hospitalized if patient is ever a danger to self/others, or unable to care for self, and upon discharge, the importance for patient to contact [facility] or [facility], or go to the nearest emergency room, if patient is ever a danger to self/others, or unable to care for self. Recommend that upon discharge patient establish medication management treatment with a psychiatric provider, establishes routine therapy appointments, and follow-up with primary care provider. Verify patient understands and agrees to these recommendations. 12/21/17 06:40 Subjective: Following up with patient for evaluation of psychosis and safety. Patient states, "The great experiment, please check this out. It is one of two PBS specials; the mac name is Oracio something. When will I discharge? I would like to hit the bar, maybe check in with my ladies. Can you print something off for me? I would like to discharge to a nice environment. Thanks." Patient does not report undesirable side effects from the medications, agrees to continue current medications. Patient denies symptoms of tachycardia and agrees to discontinue propranolol; patient has refused propranolol since admission. Patient reports appetite as good, and reports eating all meals. Patient describes getting 8 hours of sleep last night, and reports feeling rested. Objective: Vital Signs Temp Pulse Resp BP Pulse Ox 36.8 C 94 14 130/89 H 99 12/18/17 06:00 12/20/17 19:32 12/18/17 06:00 12/20/17 19:32 12/18/17 06:00 NURSING REPORT: Consulted with nursing for update on patients progress in treatment. Nurses report patient is not engaged in treatment, is not attending groups, slept 8 hours last night, is withdrawn to his room, comes out for meals and at times to watch TV, expresses the following psychiatric symptoms: none; exhibits the following psychiatric symptoms: disorganized, illogical, non-linear , nonsensical; is eating all meals, was agreeable to Seroquel 400 mg at [facility]; refused Seroquel 400 mg AM yesterday; continues to refuse propranolol; no report of side effects, with no s/s of EPS/akathisia, and denies SI/HI, denies A /V hallucinations, and denies delusions. No s/s tachycardia. SYSTEMS MECHANIC UPDATE: establishing discharge plan with [facility] for follow-up after discharge. Patient has been placed on waiting list for [facility]. Patient made aware yesterday by CC high likelihood of being admitted to [facility]. MSE: The patient is a well-nourished male looking stated chronological age. Attire is inappropriate and dress is casual and hospital garb combination. Grooming status is inappropriate and disheveled. Ambulation is independent. Gait is normal and coordinated. Posture is normal and relaxed. Eye contact is inappropriate, and avoided. Motor activity is appropriate with purposeful, organized, coordinated movements; with no involuntary movements. Attitude is uncooperative and defensive. Patient appears distractible and does not relate well to this interviewer. Language production is unspontaneous. Majority of speech is nonsensical, rambling, and gibberish. Articulation is mumbling, with some clarity at times. Patient reports mood as okay with incongruent and expansive affect. Patients thought process is disorganized, non-linear, illogical, with loose associations, tangential thought, and nonsensical speech. Patient does not report suicidal/homicidal thoughts, ideas, or plans. Patient denies auditory, visual hallucinations. Patient reports delusions. Patient does not appear to be attending to internal stimuli. Patients attention and concentration are poor. Patient is oriented to person. Patients insight and judgement are poor. - Time Spent With Patient Time Spent With Patient: 15 minutes, met with patient individually. - Pending Discharge Pending Discharge Within 24 Hours: No Pending Discharge Within 48 Hours: No ICD10 Worksheet Patient Problems: Problems Problem Status Onset Acute psychosis Acute Acute psychosis Acute Antisocial personality disorder Chronic Homelessness Chronic
[2017-12-21 06:59] VITALS: BP 127/78
[2017-12-21] MEDS: QUEtiapine FUMARATE 200 MG TAB PO SCH ×2 (07:39→18:59)
[2017-12-21] MEDS: PROPRANOLOL HCL 40 MG TAB PO SCH (07:39)
--- NOTE | 2017-12-21 12:20 | ASMTCMCOM ---
CM Note CM Note Notes: Pt. reports doing "fine". Pt. stated he slept "pretty good". Pt. reports "I could eat more" and requested larger portions with his meals. Pt. 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 Pt. stated he is "doing my best to help you". Pt. then spoke with [facility] [employer] as he walked by. Pt. stated "I'm done with this", and walked away from CC. Pt. presents as entitled, demanding, disorganized, alert, and with fair eye contact. Staff report pt. sleeping 8.5 hours, refusing his medications and CC observed pt requesting "Dilaudid". Date Signed: 12/21/2017 12:19 PM Electronically Signed By:Mary Valdes
[2017-12-22] MEDS: QUEtiapine FUMARATE 50 MG TAB PO PRN ×2 (04:24→15:56)
[2017-12-22] MEDS: QUEtiapine FUMARATE 200 MG TAB PO SCH ×2 (10:33→19:49)
--- NOTE | 2017-12-22 18:16 | SOAPPROG ---
SOAP Progress Note Assessment/Plan: Assessment: Per Aiden Kwon's notes: Schizoaffective disorder, bipolar type, current acute psychosis, disorganized, withdrawn. Antisocial Personality Disorder. Homelessness. Patient worsening; notably refused medications yesterday AM (see Subjective and Objective). Patient is not safe to discharge at this time as patient continues to exhibit signs of psychosis, and express psychosis symptoms. Patient requires continued inpatient care because of current acute psychosis, and requires inpatient level of care to stabilize in order to no longer be gravely disabled due to mental illness. Patient could benefit from continued inpatient hospitalization for crisis stabilization, safety, and medication evaluation. Patient required approximately one month to stabilize during last hospitalization; patient has been referred [facility]. Suspect patient to stabilizer sooner this hospitalization (if takes medications as prescribed) as less time needed to determine most effective and tolerable treatment that patient agrees to; compared to previous hospitalization that required several medication trials. Plan: (1) Psychotropic medications: After reviewing options, risks, and benefits patient agrees to continue Seroquel 400 mg po BID. Agrees to discontinue propranolol; will continue to monitor BP for indication to restart; no current s /s tachycardia. No other medication changes at this time as more time is needed to determine ongoing tolerability and efficacy. Plan is to continue to observe patient for response and side effects from medications, and ongoing monitoring and evaluation. PLAN: 12/22/17 18:03 1. Patient intermittently compliant with medication tx during first several days in hospital. He was started on 400mg BID Seroquel assuming he had been getting 800mg TDD of Seroquel while he was in [facility]. He refused AM dose of Seroquel on 12/20/17, however he has taken as prescribed since 12/20/17. Patient is also using up to 150mg TDD of PRN Seroquel. So his TDD is actually > 800mg. 2. Patient denies SE's from Seroquel. There is no evidence of stiffness, rigidity, shuffling or abnormal movements. 3. Patient continues to demonstrate disorganized thought process, mumbling to himself, talking under his breath, speaking when no one is present. Some of these sxs were present prior to patient's last discharge, even when he was taking 800mg of Seroquel. It's possible patient does not have total remission of his symptoms at this dose. Patient also has h/o noncooperation with treatment , meaning he intentionally seeks out ways to avoid taking meds by hiding them, cheeking them, or trying to convince his providers to switch or change meds/ doses without allowing sufficient time to monitor their efficacy. It's been extremely difficult for providers to understand how patient functions with medications b/c of his noncompliance, lack of cooperation, poor adherence, intentional misleading of providers and erratic treatment. MD remembers [facility] stating during patient's last admission that patient actively seeks to avoid treatment. [facility] reports patient left [place] b/c he wanted to get away from family supervision and court order for medication/treatment. His pattern in [place] has been to avoid treatment unless he was on M1, [facility] or in [facility]. The only way he's likely to experience significant, sustained improvement is in a long- term care facility (which is where he was under court order in [place]). Pursuing placement at [facility] seems appropriate. 4. In the meantime, patient agrees to take Seroquel, but he's demonstrated repeatedly that he is not reliable. Subjective: Patient continues to demonstrate disorganized thought process, mumbling to himself, talking under his breath, speaking when no one is present. Some of these sxs were present prior to patient's last discharge, even when he was taking 800mg of Seroquel. It's possible patient does not have total remission of his symptoms at this dose. Patient also has h/o noncooperation with treatment , meaning he intentionally seeks out ways to avoid taking meds by hiding them, cheeking them, or trying to convince his providers to switch or change meds/ doses without allowing sufficient time to monitor their efficacy. It's been extremely difficult for providers to understand how patient functions with medications b/c of his noncompliance, lack of cooperation, poor adherence, intentional misleading of providers and erratic treatment. remembers [facility] stating during patient's last admission that patient actively seeks to avoid treatment. [facility] reports patient left [place] b/c he wanted to get away from family supervision and court order for medication/treatment. His pattern in [place] has been to avoid treatment unless he was on M1, [facility] or in [facility]. The only way he's likely to experience significant, sustained improvement is in a long- term care facility (which is where he was under court order in [place]). Pursuing placement at [facility] seems appropriate. Objective: Vital Signs Temp Pulse Resp BP Pulse Ox 36.8 C 60 16 127/78 H 98 12/18/17 06:00 12/21/17 06:00 12/21/17 06:00 12/21/17 06:00 12/21/17 06:00 MSE: Affect: Elevated Mood: "Fine" TP: Disorganized, illogical TC: Denies any SI/HI Perception: Denies any SI/HI, but observed talking out loud when no one is present, internally preoccupied at times Insight/Judgment: Impaired - Time Spent With Patient Time Spent With Patient: 15" - Pending Discharge Pending Discharge Within 24 Hours: No Pending Discharge Within 48 Hours: No ICD10 Worksheet Patient Problems: Problems Problem Status Onset Acute psychosis Acute Acute psychosis Acute Antisocial personality disorder Chronic Homelessness Chronic
[2017-12-22] MEDS: BENZTROPINE MESYLATE 1 MG TAB PO SCH (19:49)
[2017-12-23] MEDS: BENZTROPINE MESYLATE 1 MG TAB PO SCH ×3 (08:42→22:13)
[2017-12-23] MEDS: QUEtiapine FUMARATE 200 MG TAB PO SCH ×4 (08:42→22:13)
--- NOTE | 2017-12-23 17:14 | SOAPPROG ---
SOAP Progress Note Assessment/Plan: Assessment: Per Aiden Kwon's notes: Schizoaffective disorder, bipolar type, current acute psychosis, disorganized, withdrawn. Antisocial Personality Disorder. Homelessness. Patient worsening; notably refused medications yesterday AM (see Subjective and Objective). Patient is not safe to discharge at this time as patient continues to exhibit signs of psychosis, and express psychosis symptoms. Patient requires continued inpatient care because of current acute psychosis, and requires inpatient level of care to stabilize in order to no longer be gravely disabled due to mental illness. Patient could benefit from continued inpatient hospitalization for crisis stabilization, safety, and medication evaluation. Patient required approximately one month to stabilize during last hospitalization; patient has been referred [facility] for [facility] treatment. Suspect patient to stabilizer sooner this hospitalization (if takes medications as prescribed) as less time needed to determine most effective and tolerable treatment that patient agrees to; compared to previous hospitalization that required several medication trials. Plan: (1) Psychotropic medications: After reviewing options, risks, and benefits patient agrees to continue Seroquel 400 mg po BID. Agrees to discontinue propranolol; will continue to monitor BP for indication to restart; no current s /s tachycardia. No other medication changes at this time as more time is needed to determine ongoing tolerability and efficacy. Plan is to continue to observe patient for response and side effects from medications, and ongoing monitoring and evaluation. PLAN: 12/22/17 18:03 1. Patient intermittently compliant with medication tx during first several days in hospital. He was started on 400mg BID Seroquel assuming he had been getting 800mg TDD of Seroquel while he was in [facility]. He refused AM dose of Seroquel on 12/20/17, however he has taken as prescribed since 12/20/17. Patient is also using up to 150mg TDD of PRN Seroquel. So his TDD is actually > 800mg. 2. Patient denies SE's from Seroquel. There is no evidence of stiffness, rigidity, shuffling or abnormal movements. 3. Patient continues to demonstrate disorganized thought process, mumbling to himself, talking under his breath, speaking when no one is present. Some of these sxs were present prior to patient's last discharge, even when he was taking 800mg of Seroquel. It's possible patient does not have total remission of his symptoms at this dose. Patient also has h/o noncooperation with treatment , meaning he intentionally seeks out ways to avoid taking meds by hiding them, cheeking them, or trying to convince his providers to switch or change meds/ doses without allowing sufficient time to monitor their efficacy. It's been extremely difficult for providers to understand how patient functions with medications b/c of his noncompliance, lack of cooperation, poor adherence, intentional misleading of providers and erratic treatment. MD remembers [facility] stating during patient's last admission that patient actively seeks to avoid treatment. [facility] reports patient left [place] b/c he wanted to get away from family supervision and court order for medication/treatment. His pattern in [place] has been to avoid treatment unless he was on M1, [facility] or in [facility]. The only way he's likely to experience significant, sustained improvement is in a long- term care facility (which is where he was under court order in [place]). Pursuing placement at [facility]Note 3[facility] seems appropriate. 4. In the meantime, patient agrees to take Seroquel, but he's demonstrated repeatedly that he is not reliable. PLAN: 12/23/17 17:09 1. Patient very psychotic and disorganized this AM. Told MD he was taking online classes from "[email or web address]. 2. Patient takes PRN doses of Seroquel for anxiety, but denies he needs the med for psychosis. 3. Given patient's h/o noncompliance and lengths he has gone to in order to avoid treatment ([place] it's likely he will need court ordered treatment and medications to achieve maximum stability. Subjective: Patient continues to present disorganized, confused and illogical. He has papers sticking out of his pants in the front and back. When MD asks why he has paper stuffed into his pants, patient says b/c they "wouldn't fit" in the back. He actually has papers both places. "I can show you if you want," patient says. He pulls out paper from front. It's a wikipedia article about "[place]." Patient says he has to write a paper for an online class he is taking through "[email or web address] on the internet. 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 When MD asks what type of paper he has to write and other details about the online course, patient becomes anxious and has trouble articulating his thoughts. In fact, at one point, patient looks at MD and says, "wow...OK, wait a minute...I'm a little nervous." After MD leaves, patient sits down in chair and starts talking to himself. Objective: Vital Signs Temp Pulse Resp BP Pulse Ox 36.8 C 60 16 127/78 H 98 12/18/17 06:00 12/21/17 06:00 12/21/17 06:00 12/21/17 06:00 12/21/17 06:00 MSE: Affect: Constricted Mood: "Good" TP: Disorganized, illogical at times TC: Denies any SI/HI Insight/Judgment: Impaired - Time Spent With Patient Time Spent With Patient: 20" - Pending Discharge Pending Discharge Within 24 Hours: No Pending Discharge Within 48 Hours: No ICD10 Worksheet Patient Problems: Problems Problem Status Onset Acute psychosis Acute Acute psychosis Acute Antisocial personality disorder Chronic Homelessness Chronic
[2017-12-23] MEDS: QUEtiapine FUMARATE 50 MG TAB PO PRN (17:19)
[2017-12-24] MEDS: QUEtiapine FUMARATE 200 MG TAB PO SCH ×3 (01:05→21:06)
[2017-12-24] MEDS: QUEtiapine FUMARATE 50 MG TAB PO PRN (06:40)
--- NOTE | 2017-12-24 07:08 | SOAPPROG ---
SOAP Progress Note Assessment/Plan: Assessment: Schizoaffective disorder, bipolar type, current acute psychosis, disorganized, withdrawn. Antisocial Personality Disorder. Homelessness. No improvement over the weekend; continues to intermittently refuse medications (see Subjective and Objective). Patient is not safe to discharge at this time as patient continues to exhibit signs of psychosis, and express psychosis symptoms. Patient requires continued inpatient care because of current acute psychosis, and requires inpatient level of care to stabilize in order to no longer be gravely disabled due to mental illness. Patient could benefit from continued inpatient hospitalization for crisis stabilization, safety, and medication evaluation. Patient required approximately one month to stabilize during last hospitalization; patient has been referred to [facility] for [facility]. Plan: (1) Psychotropic medications: After reviewing options, risks, and benefits patient agrees to continue medications. No other medication changes at this time as more time is needed to determine ongoing tolerability and efficacy. Plan is to continue to observe patient for response and side effects from medications, and ongoing monitoring and evaluation. Consult with MD for court- ordered medications. (2) Review with patient informed consent and recommendations for psychotropic medication treatment listed below (3) Labs: no additional labs at this time (4) Therapy: continue milieu and group therapy (5) Further investigation including gathering information from patients relatives and review of past case records to inform treatment plan. (6) Safety/Wellness plan and follow-up outpatient appointments to be established prior to discharge. Next steps are for patient to meet with director of health care marketing to plan a safe discharge plan and establish outpatient services for ongoing treatment. (7) Confer with inpatient treatment team regarding treatment plan. (8) Legal status: [facility] (9) Consider discharge next week if patient is in stable condition, safe, and has a safe discharge plan. (10) Consider court-ordered medications if patient continues to refuse medications. PSYCHOTROPIC MEDICATION TREATMENT INFORMED CONSENT and RECOMMENDATIONS: Review nature of condition, diagnosis, and prognosis. Review nature and purpose of psychotropic medication treatment. Review type of psychotropic medications being ordered. Review risk and benefits of psychotropic medication treatment. Review probable length of time patient will need to take medications. Review risk and benefits of not undergoing psychotropic medication treatment. Review alternative treatments to psychotropic medications. Review psychotropic medications contraindications, drug-drug interactions, side effects, and importance of reporting any side effects to a psychiatric provider or nurse during inpatient hospitalization, and upon discharge to patients psychiatric outpatient provider, primary care provider, or other health home care giver. Review importance of asking a nurse, psychiatric provider, or primary care provider any questions or problems concerning the psychotropic medications. Verify patient understands the information that has been provided, and understands, accepts, and agrees to psychotropic medications. Review patients safety plan and importance of patient to report to staff while hospitalized if patient is ever a danger to self/others, or unable to care for self, and upon discharge, the importance for patient to contact [facility] or [facility], or go to the nearest emergency room, if patient is ever a danger to self/others, or unable to care for self. Recommend that upon discharge patient establish medication management treatment with a psychiatric provider, establishes routine therapy appointments, and follow-up with primary care provider. Verify patient understands and agrees to these recommendations. 12/24/17 07:09 Subjective: Following up with patient for evaluation of psychosis and safety. Patient states, "Hey see that lisa (pointing to another male patient) I was with him in lock-up a while back. He was a monkey. Seriously, the guard stole his energy and turned him into a monkey. He turned into a monkey, walking around in lock- up, saw it, seriously." Patient does not report undesirable side effects from the medications, agrees to continue current medications. Patient reports appetite as good, and reports eating all meals. Patient describes getting 8 hours of sleep last night, and reports feeling rested. Objective: Vital Signs Temp Pulse Resp BP Pulse Ox 36.8 C 60 16 127/78 H 98 12/18/17 06:00 12/21/17 06:00 12/21/17 06:00 12/21/17 06:00 12/21/17 06:00 NURSING REPORT: Consulted with nursing for update on patients progress in treatment. Nurses report patient is not engaged in treatment, is not attending groups, slept 8 hours last night, is withdrawn to his room, comes out for meals and at times to watch TV, expresses the following psychiatric symptoms: none; exhibits the following psychiatric symptoms: disorganized, illogical, non-linear , nonsensical; is eating all meals, was agreeable to Seroquel 400 mg at AM yesterday, refused Seroquel 400 mg at HS; continues to refused medications intermittently; no report of side effects, with no s/s of EPS/akathisia, and denies SI/HI, denies A/V hallucinations, and reports delusions. BOAT OPERATOR UPDATE: establishing discharge plan with [facility] for follow-up after discharge. Patient has been placed on waiting list for [facility]. Patient made aware yesterday by CC high likelihood of being admitted to [facility]. MD REPORT FROM WEEKEND: Patient is not improving; continues to be nonsensical. Consider court-ordered medications as Seroquel may not be effective in treating symptoms. Report from previous hospitalization from [facility], patient has done well on Risperdal and Depakote in the past; patient refuses to take these medications. MD CONSULT: This CARAMEL COLORING OPERATOR will consult with MD regarding potential need for COM. MSE: The patient is a well-nourished male looking stated chronological age. Attire is inappropriate and dress is casual and hospital garb combination. Grooming status is inappropriate and disheveled. Ambulation is independent. Gait is normal and coordinated. Posture is normal and relaxed. Eye contact is inappropriate, and avoided. Motor activity is appropriate with purposeful, organized, coordinated movements; with no involuntary movements. Attitude is uncooperative and defensive. Patient appears distractible and does not relate well to this interviewer. Language production is unspontaneous. Majority of speech is nonsensical, rambling, and gibberish. Articulation is mumbling, with some clarity at times. Patient reports mood as okay with incongruent and expansive affect. Patients thought process is disorganized, non-linear, illogical, with loose associations, tangential thought, and nonsensical speech. Patient does not report suicidal/homicidal thoughts, ideas, or plans. Patient denies auditory, visual hallucinations. Patient reports delusions. Patient does not appear to be attending to internal stimuli. Patients attention and concentration are poor. Patient is oriented to person. Patients insight and judgement are poor. - Time Spent With Patient Time Spent With Patient: 15 minutes, met with patient individually. - Pending Discharge Pending Discharge Within 24 Hours: No Pending Discharge Within 48 Hours: No ICD10 Worksheet Patient Problems: Problems Problem Status Onset Acute psychosis Acute Acute psychosis Acute Antisocial personality disorder Chronic Homelessness Chronic
--- NOTE | 2017-12-24 08:57 | ASMTCMCOM ---
CM Note CM Note Notes: CC tried to converse with client; however, client continues to demonstrates bizarre behaviors, nonsensical conversations, loud, disturbing towards others, etc. Client would not really speak to this typewriter operator automatic today. Date Signed: 12/24/2017 08:56 AM Electronically Signed By:Rhys Hernandez
[2017-12-24] MEDS ORDERED: LORazepam 1 MG TAB PO PRN (09:11)
[2017-12-24] MEDS: BENZTROPINE MESYLATE 1 MG TAB PO SCH ×2 (10:16→21:04)
[2017-12-25] MEDS: QUEtiapine FUMARATE 50 MG TAB PO PRN ×3 (06:24→18:26)
--- NOTE | 2017-12-25 06:48 | SOAPPROG ---
SOAP Progress Note Assessment/Plan: Assessment: Schizoaffective disorder, bipolar type, current acute psychosis, disorganized, withdrawn. Antisocial Personality Disorder. Homelessness. No improvement; continues to intermittently refuse medications (see Subjective and Objective). Patient is not safe to discharge at this time as patient continues to exhibit signs of psychosis, and express psychosis symptoms. Patient requires continued inpatient care because of current acute psychosis, and requires inpatient level of care to stabilize in order to no longer be gravely disabled due to mental illness. Patient could benefit from continued inpatient hospitalization for crisis stabilization, safety, and medication evaluation. Patient required approximately one month to stabilize during last hospitalization; patient has been referred to [facility] for long-term treatment. Patient could benefit from placement at long-term treatment facility based on history. Plan: (1) Psychotropic medications: After reviewing options, risks, and benefits patient agrees to continue medications. No medication changes at this time as more time is needed to determine ongoing tolerability and efficacy. Plan is to continue to observe patient for response and side effects from medications, and ongoing monitoring and evaluation. Consult with MD for court-ordered medications. (2) Review with patient informed consent and recommendations for psychotropic medication treatment listed below (3) Labs: no additional labs at this time (4) Therapy: continue milieu and group therapy (5) Further investigation including gathering information from patients relatives and review of past case records to inform treatment plan. (6) Safety/Wellness plan and follow-up outpatient appointments to be established prior to discharge. Next steps are for patient to meet with career and transition teacher to plan a safe discharge plan and establish outpatient services for ongoing treatment. (7) Confer with inpatient treatment team regarding treatment plan. (8) Legal status: [facility] (9) Consider discharge next week if patient is in stable condition, safe, and has a safe discharge plan. (10) Consider court-ordered medications if patient continues to refuse medications. PSYCHOTROPIC MEDICATION TREATMENT INFORMED CONSENT and RECOMMENDATIONS: Review nature of condition, diagnosis, and prognosis. Review nature and purpose of psychotropic medication treatment. Review type of psychotropic medications being ordered. Review risk and benefits of psychotropic medication treatment. Review probable length of time patient will need to take medications. Review risk and benefits of not undergoing psychotropic medication treatment. Review alternative treatments to psychotropic medications. Review psychotropic medications contraindications, drug-drug interactions, side effects, and importance of reporting any side effects to a psychiatric provider or nurse during inpatient hospitalization, and upon discharge to patients psychiatric outpatient provider, primary care provider, or other health career placement specialist. Review importance of asking a nurse, psychiatric provider, or primary care provider any questions or problems concerning the psychotropic medications. Verify patient understands the information that has been provided, and understands, accepts, and agrees to psychotropic medications. Review patients safety plan and importance of patient to report to staff while hospitalized if patient is ever a danger to self/others, or unable to care for self, and upon discharge, the importance for patient to contact [facility] or [facility], or go to the nearest emergency room, if patient is ever a danger to self/others, or unable to care for self. Recommend that upon discharge patient establish medication management treatment with a psychiatric provider, establishes routine therapy appointments, and follow-up with primary care provider. Verify patient understands and agrees to these recommendations. 12/25/17 06:48 Subjective: Following up with patient for evaluation of psychosis and safety. This OPTICAL GOODS DRILL OPERATOR approaches patient in [place], patient leaning against the wall staring. When this OPTICAL GOODS DRILL OPERATOR asks patient how he is doing patient does not respond. When this OPTICAL GOODS DRILL OPERATOR asks patient his discharge plan patients states, "Basically, whatever I want to do." Patient does not report undesirable side effects from the medications, agrees to continue current medications. Patient describes getting 8 hours of sleep last night, and reports feeling rested. Patient refuses to answer additional interview questions. Objective: Vital Signs Temp Pulse Resp BP Pulse Ox 36.8 C 60 16 127/78 H 98 12/18/17 06:00 12/21/17 06:00 12/21/17 06:00 12/21/17 06:00 12/21/17 06:00 NURSING REPORT: Consulted with nursing for update on patients progress in treatment. Nurses report patient is not engaged in treatment, is not attending groups, slept 8 hours last night, continues to be withdrawn to his room during the day, comes out for meals and at times to watch TV; patient spent majority of the time yesterday in his room chanting, nonsensical, gibberish; expresses the following psychiatric symptoms: none; exhibits the following psychiatric symptoms: disorganized, illogical, non-linear, nonsensical; is eating all meals , was agreeable to Seroquel 400 mg po BID yesterday; refused Cogentin 1 mg po BID; continues to refused medications intermittently; no report of side effects , with no s/s of EPS/akathisia, and denies SI/HI, denies A/V hallucinations, and reports delusions. LACQUER SPRAY BOOTH OPERATOR UPDATE: establishing discharge plan with [facility] for follow-up after discharge. Patient has been placed on waiting list for [facility]. Patient made aware yesterday by CC high likelihood of being admitted to [facility]. MD REPORT FROM WEEKEND: Patient is not improving; continues to be nonsensical. Consider court-ordered medications as Seroquel may not be effective in treating symptoms. MSE: The patient is a well-nourished male looking stated chronological age. Attire is inappropriate and dress is casual and hospital garb combination. Patient presents with towel wrapped around the top of his head. Grooming status is inappropriate and disheveled. Ambulation is independent. Gait is normal and coordinated. Posture is normal and relaxed. Eye contact is inappropriate, and staring. Motor activity is appropriate with purposeful, organized, coordinated movements; with no involuntary movements. Attitude is uncooperative and defensive. Patient appears distractible and does not relate well to this interviewer. Language production is unspontaneous. Majority of speech is nonsensical, rambling, and gibberish. Articulation is mumbling, with some clarity at times. Patient reports mood as okay with incongruent and expansive affect. Patients thought process is disorganized, non-linear, illogical, with loose associations, tangential thought, and nonsensical speech. Patient does not report suicidal/homicidal thoughts, ideas, or plans. Patient denies auditory, visual hallucinations. Patient reports delusions. Patient does not appear to be attending to internal stimuli. Patients attention and concentration are poor. Patient is oriented to person. Patients insight and judgement are poor. - Time Spent With Patient Time Spent With Patient: 15 minutes, met with patient individually. - Pending Discharge Pending Discharge Within 24 Hours: No Pending Discharge Within 48 Hours: No ICD10 Worksheet Patient Problems: Problems Problem Status Onset Acute psychosis Acute Non-adherence to medical treatment Acute Acute psychosis Acute Antisocial personality disorder Chronic Homelessness Chronic
[2017-12-25] MEDS: BENZTROPINE MESYLATE 1 MG TAB PO SCH ×3 (08:15→19:19)
[2017-12-25] MEDS: QUEtiapine FUMARATE 200 MG TAB PO SCH ×3 (08:15→20:56)
[2017-12-25] MEDS ORDERED: QUEtiapine FUMARATE 200 MG TAB PO ONE (10:47)
--- NOTE | 2017-12-26 07:23 | SOAPPROG ---
SOAP Progress Note Assessment/Plan: Assessment: Schizoaffective disorder, bipolar type, current acute psychosis, disorganized, withdrawn. Antisocial Personality Disorder. Homelessness. No improvement; continues to intermittently refuse medications (see Subjective and Objective). Patient is not safe to discharge at this time as patient continues to exhibit signs of psychosis, and express psychosis symptoms. Patient requires continued inpatient care because of current acute psychosis, and requires inpatient level of care to stabilize in order to no longer be gravely disabled due to mental illness. Patient is unable to perform ADLs independently and is unable to appropriately communicate his needs. Patient could benefit from continued inpatient hospitalization for crisis stabilization, safety, and medication evaluation. Patient required approximately one month to stabilize during last hospitalization; patient has been referred to [facility] for long-term treatment. Patient could benefit from placement at long-term treatment facility based on history. Plan: (1) Psychotropic medications: After reviewing options, risks, and benefits patient agrees to continue medications. No medication changes at this time as more time is needed to determine ongoing tolerability and efficacy. Plan is to continue to observe patient for response and side effects from medications, and ongoing monitoring and evaluation. (2) Review with patient informed consent and recommendations for psychotropic medication treatment listed below (3) Labs: no additional labs at this time (4) Therapy: continue milieu and group therapy (5) Further investigation including gathering information from patients relatives and review of past case records to inform treatment plan. (6) Safety/Wellness plan and follow-up outpatient appointments to be established prior to discharge. Next steps are for patient to meet with mall plant caretaker to plan a safe discharge plan and establish outpatient services for ongoing treatment. (7) Confer with inpatient treatment team regarding treatment plan. (8) Legal status: [facility] (9) Consider discharge next week if patient is in stable condition, safe, and has a safe discharge plan. PSYCHOTROPIC MEDICATION TREATMENT INFORMED CONSENT and RECOMMENDATIONS: Review nature of condition, diagnosis, and prognosis. Review nature and purpose of psychotropic medication treatment. Review type of psychotropic medications being ordered. Review risk and benefits of psychotropic medication treatment. Review probable length of time patient will need to take medications. Review risk and benefits of not undergoing psychotropic medication treatment. Review alternative treatments to psychotropic medications. Review psychotropic medications contraindications, drug-drug interactions, side effects, and importance of reporting any side effects to a psychiatric provider or nurse during inpatient hospitalization, and upon discharge to patients psychiatric outpatient provider, primary care provider, or other health child care leader. Review importance of asking a nurse, psychiatric provider, or primary care provider any questions or problems concerning the psychotropic medications. Verify patient understands the information that has been provided, and understands, accepts, and agrees to psychotropic medications. Review patients safety plan and importance of patient to report to staff while hospitalized if patient is ever a danger to self/others, or unable to care for self, and upon discharge, the importance for patient to contact [facility] or [facility], or go to the nearest emergency room, if patient is ever a danger to self/others, or unable to care for self. Recommend that upon discharge patient establish medication management treatment with a psychiatric provider, establishes routine therapy appointments, and follow-up with primary care provider. Verify patient understands and agrees to these recommendations. 12/26/17 07:22 Subjective: Following up with patient for evaluation of psychosis and safety. This WARE SERVER approaches patient in [place] for interview. Patient refuses to meet with this provider. Objective: Vital Signs Temp Pulse Resp BP Pulse Ox 36.8 C 60 16 127/78 H 98 12/18/17 06:00 12/21/17 06:00 12/21/17 06:00 12/21/17 06:00 12/21/17 06:00 NURSING REPORT: Consulted with nursing for update on patients progress in treatment. Nurses report patient is not engaged in treatment, is not attending groups, slept 9 hours last night, continues to be withdrawn to his room during the day, comes out for meals and at times to watch TV, patient at times stands in [place] staring; expresses the following psychiatric symptoms: none; exhibits the following psychiatric symptoms: disorganized, illogical, non-linear, nonsensical; is eating all meals, refused Seroquel AM dose yesterday, later requested, was agreeable to Seroquel HS dose; refused Cogentin 1 mg po BID; continues to refused medications intermittently; no report of side effects, with no s/s of EPS/akathisia, and denies SI/HI, denies A/V hallucinations, and reports delusions. MARKET DEVELOPMENT TRAINER UPDATE: establishing discharge plan with [facility] for follow-up after discharge. Patient has been placed on waiting list for [facility]. Patient made aware yesterday by CC high likelihood of being admitted to [facility]. MSE: The patient is a well-nourished male looking stated chronological age. Attire is inappropriate and dress is casual and hospital garb combination. Patient presents with towel wrapped around the top of his head. Grooming status is inappropriate and disheveled. Ambulation is independent. Gait is normal and coordinated. Posture is normal and relaxed. Eye contact is inappropriate, and staring. Motor activity is appropriate with purposeful, organized, coordinated movements; with no involuntary movements. Attitude is uncooperative and defensive. Patient appears distractible and does not relate well to this interviewer. Language production is unspontaneous. Majority of speech is nonsensical, rambling, and gibberish. Articulation is mumbling, with some clarity at times. Patient reports mood as okay with incongruent and expansive affect. Patients thought process is disorganized, non-linear, illogical, with loose associations, tangential thought, and nonsensical speech. Patient does not report suicidal/homicidal thoughts, ideas, or plans. Patient denies auditory, visual hallucinations. Patient reports delusions. Patient does not appear to be attending to internal stimuli. Patients attention and concentration are poor. Patient is oriented to person. Patients insight and judgement are poor. - Time Spent With Patient Time Spent With Patient: 15 minutes, met with patient, reviewed chart, records, and reviewed case with RNs and MHWs. - Pending Discharge Pending Discharge Within 24 Hours: No Pending Discharge Within 48 Hours: No ICD10 Worksheet Patient Problems: Problems Problem Status Onset Acute psychosis Acute Non-adherence to medical treatment Acute Acute psychosis Acute Antisocial personality disorder Chronic Homelessness Chronic
[2017-12-26] MEDS: QUEtiapine FUMARATE 200 MG TAB PO SCH ×2 (10:18→20:56)
[2017-12-26] MEDS: BENZTROPINE MESYLATE 1 MG TAB PO SCH ×2 (10:19→20:41)
[2017-12-26] MEDS: QUEtiapine FUMARATE 50 MG TAB PO PRN (12:30)
[2017-12-27] MEDS: QUEtiapine FUMARATE 200 MG TAB PO SCH (09:00)
[2017-12-27] MEDS: BENZTROPINE MESYLATE 1 MG TAB PO SCH (10:25)
--- NOTE | 2017-12-27 13:32 | BDS ---
REASON FOR ADMISSION: From the ED note dated 12/15/2017, patient with a history of schizophrenia, was brought from long-term for smearing feces all over his cell and putting his fingers in the feces and then licking his fingers. Patient has a history of schizophrenia. 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 Patient denied any complaints in the ER. Patient was receiving Seroquel while in long-term with no other medications. Patient denied recent drug or alcohol ingestion. Patient denied suicidal ideation. From the TLC evaluation dated 12/15/2017, the patient was placed on an M1 hold with M1 hold start time and date of 12/15/2017, at 3:36 p.m. Patient reported to the [facility] film examiner "I'm just having the human experiences and know who I am. I'm not by the law. I have a Duvall's love and 4 beautiful children, but I would like not to get into that. I have a lot of love and beautiful support system. My mother is an educator. My father is a surgeon. I was in long-term for trespassing and got a ticket for a property I own. It was strange. I have houses in [place] and [facility]. I like Seroquel for sleeping and propranolol p.r.n. I don't feel I need them every day, but I like to take them. 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 I'm in great health. I have great immunities. I sleep best when waking up next to a lover and then falling right back to sleep. I like sleeping 6 to 8 hours, Seroquel helps. I also have beautiful, lucid dream practice." M1 hold stated "Client at [facility] has feces all over his hands and smith. Client appears to be gravely disabled as evidenced by illogical thoughts, rambling speech, and bizarre behavior. Client is not able to care for self and in need of further assessment." Patient was admitted involuntarily on an M1 hold due to being gravely disabled due to a mental illness. Patient was admitted for safety, crisis stabilization , and medication evaluation. ADMITTING DIAGNOSES: 1. Schizoaffective disorder, bipolar type. 2. Acute psychosis. 3. Nonadherence to medical treatment. 4. Homelessness. 5. Antisocial personality disorder. ADMISSION PHYSICAL EXAM: Patient was seen by Dr. Watters on 12/17/2017, for an Internal Medicine consultation for medical clearance for inpatient Behavioral Health stay. Dr. Watters reported he saw no medical contraindications to the patient's continued stay on the inpatient behavioral health unit or to any psychiatric medications or procedures. For further details, please refer to Dr. Watters's Internal Medicine consultation note dated 12/17/2017. ADMISSION LABORATORY DATA: From the emergency department, CBC revealed an elevated hemoglobin and a hematocrit at 18 and 51.7. MCV was slightly low at 79.2. White blood cell count was mildly elevated at 11.14. There was no left shift. It was predominantly an elevation of absolute lymphocytes at 7.66. Serum chemistry revealed normal renal function and electrolytes. Glucose was slightly elevated at 108. Toxicology screen in the serum was negative for ethyl alcohol and in the urine was negative for all substances of abuse screened. TSH was normal in June of this year and lipid panel was essentially benign. There was a very mild elevation of LDL cholesterol. Hemoglobin A1c was 5.1. MAJOR PROCEDURES/TESTS: None. HOSPITAL COURSE: Presentation during hospitalization and reason for hospitalization (events leading to hospitalization) similar to previous hospitalization in June-July 2017. The most prominent symptoms and behaviors while the patient was here were patient presenting with inappropriate attire. Patient presented several times with a towel wrapped them around his head. Patient was disheveled, malodorous. Patient's thought process was disorganized , nonlinear, illogical, with loose associations, tangential thought, and nonsensical speech. At times, patient would spend the majority of the day in his room chanting and singing. Other times, patient would hand cloth examiner the weston with vacant stares. Patient made inappropriate comments to staff and other patient's throughout the course of hospitalization. Patient did not require E- meds or seclusion during course of hospitalization. Patient does have history of being threatening toward staff. Patient did sleep well throughout the course of his hospitalization. Treatment modalities utilized during hospitalization were milieu and group therapy. Patient refused to attend groups, did not attend groups throughout his hospitalization, and spent most of the time withdrawn to his room during groups. Upon admission, the patient agreed to risperidone M tab 1 mg p.o. daily to target psychosis symptoms. Patient was agreeable to this medication on the first day. On the second day, patient refused risperidone and requested Seroquel. Patient was discharged during last hospitalization on Seroquel 800 mg p.o. q.h.s. Patient was also reported to be taking Seroquel while in long-term prior to this admission. Seroquel was started and titrated to 400 mg p.o. b.i.d. to target psychosis symptoms, was tolerated with no report of side effects. Patient intermittently refused to take Seroquel at times. He would refuse the a.m. dose of Seroquel and then later on in the day he would ask for the a.m. dose. Patient was not adherent to medications throughout the majority of his hospitalization. Seroquel 25 mg p.o. q.4 hours p.r.n. was started to target acute agitation and psychosis symptoms. Patient requested this medication on several occasions. Medication was tolerated with no report of side effects. Patient has not improved since admission, continues to be in an unstable condition. Patient's response to treatment has been poor from patient's previous hospitalization. Patient's father has reported that the patient has done well on risperidone and Depakote during past hospitalizations on the [facility]. Patient refused these medications during this hospitalization. There were no adverse or unexpected results of treatment. The patient was safe throughout his stay, was not active in his treatment, did not attend or engage in groups, and was inappropriate often with both staff and other patients. Patient met with the treatment team prior to discharge to assess readiness to discharge and to transfer to [facility] and review discharge plan. The treatment team consensus is the patient is ready to transfer to [facility]. CONDITION AT DISCHARGE: Patient is medically stable at time of discharge, and from a psychiatric standpoint, the patient is unstable. Patient is in need of inpatient level of care and cannot be safely and effectively treated within the community Patient's level of risk at time of discharge is low. MENTAL STATUS EXAM: Patient is an undernourished male, looking older than stated chronological age. Attire is inappropriate. Dress is casual, unkept, disheveled, and dirty. Grooming status is inappropriate, disheveled, dirty, unwashed, malodorous, and unshaven. Ambulation is independent. Gait is normal and coordinated. Posture is normal and relaxed. Eye contact is inappropriate, at times excessive staring. Motor activity is appropriate with purposeful, organized, coordinated movements with no involuntary movements noted. Attitude is uncooperative, guarded, defensive, hostile, and angry. Patient appears disinterested and distractible, and does not relate well to this interviewer. Language production is spontaneous. Rate is fluent. Latency of response is adequate with irritable, angry tone and high volume. Articulation is clear, and at times is mumbled with nonsensical speech. Patient reports mood as "okay " with expansive incongruent and inappropriate affect. Patient's thought process is nonlinear and illogical, disorganized with loose associations, tangential thought. Patient does not report suicidal, homicidal thoughts, ideas , or plans. Patient denies auditory or visual hallucinations. Patient reports delusions. Patient does not appear to be attending to internal stimuli. Patient is oriented to person, place, and time. Patient's attention and concentration are poor. The patient's insight and judgment are poor. There is no evidence of gross cognitive dysfunction at any point during the interview. No evidence of apparent dysfunction in recent or remote memory noted. Patient does not report undesirable side effects from the current medications. DISCHARGE DIAGNOSES: 1. Schizoaffective disorder, bipolar type. 2. Acute psychosis. 3. Nonadherence to medical treatment. 4. Homelessness. 5. Antisocial personality disorder. CURRENT MEDICATIONS: At time of discharge, the patient was prescribed Seroquel 400 mg p.o. b.i.d. Patient was intermittently refusing this medication throughout the course of his hospitalization. Patient was also prescribed Cogentin 1 mg p.o. b.i.d. Patient refused this medication. No prescriptions were provided for the patient at discharge as patient is transferring to [facility]. DISPOSITION: Patient left hospital with [facility] for transport to [facility]. FOLLOWUP: Patient to continue inpatient psychiatric hospitalization at [facility]. LEGAL COURSE: Patient was admitted on an M1 hold for involuntary inpatient psychiatric hospitalization. Patient was placed on a short-term certification during the course of his hospitalization. Patient discharged today on a short- term certification, which will be transferred by the MD to [facility]. ATTITUDE AT TIME OF DISCHARGE: Patient's attitude at time of discharge was negative. Patient reports he does not look forward to discharging and transferring to [facility]. Patient reports he does feel safe to discharge, is not a danger to himself or others. LABORATORY/STUDIES: There were no pending labs or studies at time of discharge. ADVANCED DIRECTIVES: There were no advance directives on file, and the patient was full code during this hospitalization. /[id number]/MODL MTDD
== END 2017-12-27 10:15 | DRG 885 ==
LOC: EEVIPCON 15:59 → BBEH 12-16 19:15
PROVIDERS: ADMIT Psychiatry & Neurology Psychiatry; ATTEND Psychiatry & Neurology Psychiatry
DX: F25.0 Schizoaffective disorder, bipolar type (principal); T43.506A Underdosing of unspecified antipsychotics and neuroleptics, initial encounter; Z59.0 Homelessness; F60.2 Antisocial personality disorder
CPT/HCPCS: 80305; G0480